=== PATIENT | male | born 1950 | race Caucasian/White ===

== ENCOUNTER 2022-08-12 19:46 | Inpatient (IN) | payer OTHER, SELFPAY ==
[2022-08-12] VITALS (14 sets, daily range): BP systolic 136–169; BP diastolic 63–94; PULSE 88–96; RESP 15–25; TEMP 37.1; O2SAT 93–98; BMI 21.2
--- NOTE | 2022-08-12 20:07 | DI.RAD.S_ITS ---
PROCEDURE: XR CHEST 1V INDICATIONS: Shortness of breath TECHNIQUE: One view of the chest was acquired. COMPARISON: None. FINDINGS: Surgical changes and devices: None. Lungs and pleura: Lungs are clear. There is hyperinflation of the lungs with flattening of the hemidiaphragms compatible with COPD. No pleural effusions or pneumothorax. Mediastinum: Mediastinal contours appear normal. Heart size is normal. Bones and chest wall: There are multiple healed left posterior rib fractures. No suspicious bony lesions. Overlying soft tissues appear unremarkable. IMPRESSION: 1. No acute cardiopulmonary disease. 2. Findings compatible with COPD. Dictated by: Jarrod Jose M.D. on 08/12/2022 at 20:27 Approved by: Jarrod Jose M.D. on 08/12/2022 at 20:28
[2022-08-12 20:27] LABS: Add Manual Diff / Slide Review NO; Basophils Absolute Auto 0 /uL (0-100); Basophils Percent Auto 0.5 % (0-2); Eosinophils Absolute Auto 100 /uL (0-450); Eosinophils Percent Auto 1.6 % (2-4); Hematocrit 40.4 % (41-53); Hemoglobin 14.1 g/dL (13.5-17.5); Lymphocytes Absolute Auto 1000 /uL (1100-4500); Lymphocytes Percent Auto 11.9 % (25-40); Mean Corpuscular HGB Conc 34.9 % (30-36); Mean Corpuscular Hemoglobin 32.1 PG (26-34); Monocytes Absolute Auto 700 /uL (0-900); Monocytes Percent Auto 8.7 % (3-14); Neutrophils Absolute Auto 6200 /uL (1500-7000); Neutrophils Percent Auto 77.3 % (50-75); Platelet Count 166 X10^3/uL (150-400); Red Blood Cell Count 4.39 X10^6/uL (4.5-5.9); Red Cell Distribution Width 14.1 % (11.6-14.8)
[2022-08-12 20:34] LABS: INR 0.9 (0.9-1.3); Prothrombin Time 10.8 SECONDS (10.1-12.7)
[2022-08-12 20:41] LABS: Alanine Aminotransferase 42 IU/L (<50); Albumin 4.1 g/dL (3.5-5.0); Albumin Globulin Ratio 1.1 (1.0-2.8); Alkaline Phosphatase 150 U/L (38-126); Aspartate Aminotransferase 65 IU/L (17-59); Bilirubin Total 1.7 mg/dL (0.2-1.3); Blood Urea Nitrogen 11 mg/dL (9-20); Calcium 8.9 mg/dL (8.4-10.2); Carbon Dioxide 31 mmol/L (22-32); Estimated Glomerular Filt Rate > 60 mL/min (>60); Globulin 3.9 g/dL (1.7-4.1); Glucose 87 mg/dL (80-110); HEMOLYSIS < 15 (0-50); Potassium 4.2 mmol/L (3.4-5.1)
--- NOTE | 2022-08-12 20:43 | ED.SOB ---
HPI - SOB/Dyspnea General Chief Complaint: Shortness of Breath/Dyspnea Stated Complaint: COPD, SOB Time Seen by Provider: 08/12/22 20:26 Source: patient and EMS Mode of arrival: EMS Limitations: no limitations History of Present Illness HPI Narrative: Patient is a 71-year-old male history of COPD presenting with increased difficulty breathing. He says for the last couple of days he has not felt well not eating or drinking very much he gets nauseous when he eats. He is trying to drink some. He is a little bit dizzy when he stands up but no numbness tingling or weakness. He says he really just can not breathe. Been ongoing for the past few days. He was using Spiriva without significant relief. He says that he has been under a lot of stress this week he is trying to get some finances under control. 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 Related Data Allergies Allergy/AdvReac Type Severity Reaction Status Date / Time No Known Drug Allergies Allergy Verified 08/12/22 19:59 Review of Systems Review of Systems ROS Unobtainable: All systems reviewed & are unremarkable except as noted in HPI and below Patient History Social History household members: none Smoking Status: Current every day smoker alcohol intake: current Smoking Status: Current every day smoker alcohol intake frequency: 0-2 drinks per day Substance Use Type: does not use Exam Initial Vital Signs Initial Vital Signs: Vital Signs Temperature 98.8 F 08/12/22 19:50 Pulse Rate 93 H 08/12/22 19:50 Respiratory Rate 24 08/12/22 19:50 Blood Pressure 158/75 H 08/12/22 19:50 Pulse Oximetry 93 08/12/22 19:50 Oxygen Delivery Method 08/12/22 19:50 GENERAL: Alert 71-year-old male, currently speaking on phone HEENT: Head atraumatic,EOMI, pupils reactive, face symmetric, [moist] mucous membranes CARDIOVASCULAR: Regular rate and rhythm without murmurs, rubs or gallops. RESPIRATORY: wheezing bilaterally, speaks in full sentences without any respiratory distress ABDOMEN: Soft, nontender. Normoactive bowel sounds all 4 quadrants. No guarding or rebound. EXTREMITIES: Normal range of motion, no clubbing or edema. Neurovascularly intact NEUROLOGICAL: Alert and oriented x4.Normal gait and speech. Neuropsychiatrist strength equal bilaterally SKIN: Warm, dry, no laceration, no petechiae, no rashes or lesions. Course Orders Ordered: ED Orders 08/12/22 20:07 XR chest 1V Stat COVID19 -Nasal RAPID/Pre-Proc Stat EKG-12 Lead Stat Measure peak expiratory flow ONCE RT Consult Eval and Treat NOW 08/12/22 20:13 Covid-19 + FLU A/B + RSV - PCR Stat 08/12/22 20:19 Complete Blood Count AUTO DIFF Stat Comprehensive Metabolic Panel Stat Lactate (Lactic Acid) Stat NT-proBNP (BNP-Adult 18+) Stat Procalcitonin Stat Prothrombin Time INR Stat TSH [Thyroid Stimulating Hormone] Stat Troponin I Stat 08/12/22 21:04 CT head/brain wo con Stat 08/12/22 22:10 ETOH [Ethanol (ETOH)] Stat MAG [Magnesium] Stat Trop I [Troponin I] Stat 08/12/22 22:46 Osmolality, Serum Stat Sodium Urine Random Stat UA Complete [Urinalysis and Microscopic] Stat 08/12/22 23:40 BMP [Basic Metabolic Panel] Q4H Acetaminophen (Acetaminophen 325 Mg Tablet) 650 mg PO Q6H PRN PRN Reason: Fever/Mild Pain (1-3) Al Hydrox/Mg Hydrox/Simethicone (Mag Hydrox/Alum/Simeth 30 Ml Udc) 30 ml PO Q6HR PRN PRN Reason: Dyspepsia Albuterol/Ipratropium (Albuterol/Ipratropium 3 Ml Ampul) 3 ml INH RTQ4HR PRN PRN Reason: Shortness Of Breath Or Wheezing Aspirin (Aspirin Ec 81 Mg Tablet) 81 mg PO DAILY AMY Calcium Carbonate (Calcium Carbonate 500 Mg Tab) 1,000 mg PO Q4HR PRN PRN Reason: Dyspepsia Chlordiazepoxide HCl (Chlordiazepoxide 25 Mg Capsule) 25 mg PO Q6HR [facility] Enoxaparin Sodium (Enoxaparin 40 Mg/0.4 Ml Syringe) 40 mg SUBCUT DAILY [facility] Sodium Chloride (Normal Saline 0.9%) 1,000 mls @ 100 mls/hr IV CONT AMY Last Infusion: 08/13/22 00:01 Dose: 100 mls/hr Documented By: Admin: 08/12/22 21:26 Dose: 100 mls/hr Documented By: HA Lidocaine (Remove Lidocaine Patch) 1 each TOP BEDTIME ONE Stop: 08/13/22 21:01 Lidocaine (Lidocaine Patch 1 Each Adh..Patch) 1 each TOP DAILY AMY Lorazepam (Lorazepam 2 Mg/Ml Inj) 0 mg IV CIWAPRN PRN; Protocol PRN Reason: Alcohol Withdrawal Lorazepam (Lorazepam 1 Mg Tablet) 0 mg PO CIWAPRN PRN; Protocol PRN Reason: Alcohol Withdrawal Morphine Sulfate (Morphine 2 Mg/Ml Inj) 2 mg IV Q5MIN PRN PRN Reason: Chest Pain Naloxone HCl (Naloxone 0.4 Mg/Ml Vial) 0.2 mg IV Q2MIN PRN PRN Reason: Opiate Reversal Nicotine (Nicotine 14 Patch) 14 mg TOP DAILY AMY Nitroglycerin (Nitroglycerin 0.4 Mg Sl Tab) 0.4 mg SL [id number] PRN PRN Reason: Chest Pain Ondansetron HCl (Ondansetron 4 Mg/2 Ml Inj) 4 mg IV Q8HR PRN PRN Reason: Nausea And Vomiting Oxycodone HCl (Oxycodone Ir 5 Mg Tablet) 5 mg PO Q6HR PRN PRN Reason: Pain, Moderate (4-6) Last Admin: 08/13/22 01:18 Dose: 5 mg Documented By: SONU Prednisone (Prednisone 20 Mg Tablet) 40 mg PO DAILY AMY Discontinued Medications Albuterol/Ipratropium (Albuterol/Ipratropium 3 Ml Ampul) 3 ml INH NOW ONE Stop: 08/12/22 20:45 Last Admin: 08/12/22 20:57 Dose: 3 ml Documented By: HA Hydromorphone HCl (Hydromorphone 0.5 Mg Inj) 0.5 mg IV NOW ONE Stop: 08/12/22 21:11 Last Admin: 08/12/22 21:26 Dose: 0.5 mg Documented By: HA Magnesium Sulfate (Magnesium Sulfate) 2 gm in 50 mls @ 25 mls/hr IV NOW ONE Stop: 08/13/22 01:16 Lactated Ringer's (Lactated Ringers) 500 mls @ 500 mls/hr IV BOLUS ONE Stop: 08/13/22 00:16 Last Admin: 08/13/22 01:18 Dose: Not Given Documented By: SONU Lactated Ringer's (Lactated Ringers) 500 mls @ 1,000 mls/hr IV BOLUS ONE Stop: 08/13/22 01:14 Lactated Ringer's (Lactated Ringers) 1,000 mls @ 1,000 mls/hr IV BOLUS ONE Stop: 08/13/22 01:44 Last Admin: 08/13/22 01:18 Dose: 1,000 mls/hr Documented By: SONU Vital Signs Vital signs: Vital Signs - 8 hr 08/12/22 19:50 08/12/22 20:00 08/12/22 20:05 Temperature 98.8 F Pulse Rate 93 H Respiratory Rate 24 Blood Pressure 158/75 H 153/71 H 141/67 H Pulse Oximetry 93 Oxygen Delivery Method Room Air Oxygen Flow Rate 08/12/22 20:05 08/12/22 20:29 08/12/22 20:29 Temperature Pulse Rate 92 H 93 H Respiratory Rate 25 H Blood Pressure 158/79 H Pulse Oximetry 93 97 Oxygen Delivery Method Nasal Cannula Nasal Cannula Oxygen Flow Rate 2 2 08/12/22 20:30 08/12/22 20:30 08/12/22 21:00 Temperature Pulse Rate 92 H Respiratory Rate 25 H Blood Pressure 144/81 H 158/75 H Pulse Oximetry 98 Oxygen Delivery Method Nasal Cannula Oxygen Flow Rate 2 08/12/22 21:00 08/12/22 21:30 08/12/22 21:30 Temperature Pulse Rate 93 H 96 H Respiratory Rate 20 21 Blood Pressure 151/69 H Pulse Oximetry 94 98 Oxygen Delivery Method Nasal Cannula Oxygen Flow Rate 2 08/12/22 22:00 08/12/22 22:00 Temperature Pulse Rate 88 Respiratory Rate 15 Blood Pressure 136/63 Pulse Oximetry 96 Oxygen Delivery Method Oxygen Flow Rate MDM - SOB/Dyspnea Lab Data 08/12/22 20:19 08/12/22 23:40 Labs: Lab Results 08/12/22 08/12/22 08/12/22 Range/Units 20:13 20:19 20:19 WBC 8.0 (4.5-11.0) X10^3/uL RBC 4.39 L (4.5-5.9) X10^6/uL Hgb 14.1 (13.5-17.5) g/dL Hct 40.4 L (41-53) % MCV 92.0 (80-100) fL MCH 32.1 (26-34) PG MCHC 34.9 (30-36) % RDW 14.1 (11.6-14.8) % Plt Count 166 (150-400) X10^3/uL Neut % (Auto) 77.3 H (50-75) % Lymph % (Auto) 11.9 L (25-40) % [place] % (Auto) 8.7 (3-14) % Eos % (Auto) 1.6 L (2-4) % Baso % (Auto) 0.5 (0-2) % Neut # (Auto) 6200 (9104-2822) /uL Lymph # (Auto) 1000 L (0093-0335) /uL [place] # (Auto) 700 (0-900) /uL Eos # (Auto) 100 (0-450) /uL Baso # (Auto) 0 (0-100) /uL PT 10.8 (10.1-12.7) SECONDS INR 0.9 (0.9-1.3) Sodium (137-145) mmol/L Potassium (3.4-5.1) mmol/L Chloride (98-107) mmol/L Carbon Dioxide (22-32) mmol/L BUN (9-20) mg/dL Creatinine (0.66-1.25) mg/dL Estimated GFR (>60) mL/min BUN/Creatinine Ratio (6-22) Glucose (80-110) mg/dL Lactate (0.7-2.1) mmol/L Calcium (8.4-10.2) mg/dL Magnesium (1.6-2.3) mg/dL Total Bilirubin (0.2-1.3) mg/dL AST (17-59) IU/L ALT (<50) IU/L Alkaline Phosphatase (38-126) U/L Troponin I (0.01-0.034) ng/mL NT-Pro-B Natriuret Pep (<125) pg/mL Total Protein (6.3-8.2) g/dL Albumin (3.5-5.0) g/dL Globulin (1.7-4.1) g/dL Albumin/Globulin Ratio (1.0-2.8) Procalcitonin (<0.5) ng/mL TSH (0.47-4.68) uIU/mL Ethyl Alcohol ( - 10) mg/dL SARS-CoV-2 (PCR) Negative (Negative) Influenza A (RT-PCR) Flu a negative (NEGATIVE) Influenza B (RT-PCR) Flu b negative (NEGATIVE) RSV (PCR) Negative (Negative) 08/12/22 08/12/22 08/12/22 Range/Units 20:19 20:19 20:19 WBC (4.5-11.0) X10^3/uL RBC (4.5-5.9) X10^6/uL Hgb (13.5-17.5) g/dL Hct (41-53) % MCV (80-100) fL MCH (26-34) PG MCHC (30-36) % RDW (11.6-14.8) % Plt Count (150-400) X10^3/uL Neut % (Auto) (50-75) % Lymph % (Auto) (25-40) % [place] % (Auto) (3-14) % Eos % (Auto) (2-4) % Baso % (Auto) (0-2) % Neut # (Auto) (8907-2977) /uL Lymph # (Auto) (7903-1995) /uL [place] # (Auto) (0-900) /uL Eos # (Auto) (0-450) /uL Baso # (Auto) (0-100) /uL PT (10.1-12.7) SECONDS INR (0.9-1.3) Sodium 107 L* (137-145) mmol/L Potassium 4.2 (3.4-5.1) mmol/L Chloride 67 L* (98-107) mmol/L Carbon Dioxide 31 (22-32) mmol/L BUN 11 (9-20) mg/dL Creatinine 0.58 L (0.66-1.25) mg/dL Estimated GFR > 60 (>60) mL/min BUN/Creatinine Ratio 19.0 (6-22) Glucose 87 (80-110) mg/dL Lactate 1.7 (0.7-2.1) mmol/L Calcium 8.9 (8.4-10.2) mg/dL Magnesium (1.6-2.3) mg/dL Total Bilirubin 1.7 H (0.2-1.3) mg/dL AST 65 H (17-59) IU/L ALT 42 (<50) IU/L Alkaline Phosphatase 150 H (38-126) U/L Troponin I 0.043 H (0.01-0.034) ng/mL NT-Pro-B Natriuret Pep 176 H (<125) pg/mL Total Protein 8.0 (6.3-8.2) g/dL Albumin 4.1 (3.5-5.0) g/dL Globulin 3.9 (1.7-4.1) g/dL Albumin/Globulin Ratio 1.1 (1.0-2.8) Procalcitonin 0.07 (<0.5) ng/mL TSH (0.47-4.68) uIU/mL Ethyl Alcohol ( - 10) mg/dL SARS-CoV-2 (PCR) (Negative) Influenza A (RT-PCR) (NEGATIVE) Influenza B (RT-PCR) (NEGATIVE) RSV (PCR) (Negative) 08/12/22 08/12/22 08/12/22 Range/Units 20:19 22:10 22:10 WBC (4.5-11.0) X10^3/uL RBC (4.5-5.9) X10^6/uL Hgb (13.5-17.5) g/dL Hct (41-53) % MCV (80-100) fL MCH (26-34) PG MCHC (30-36) % RDW (11.6-14.8) % Plt Count (150-400) X10^3/uL Neut % (Auto) (50-75) % Lymph % (Auto) (25-40) % [place] % (Auto) (3-14) % Eos % (Auto) (2-4) % Baso % (Auto) (0-2) % Neut # (Auto) (6632-2948) /uL Lymph # (Auto) (1262-0850) /uL [place] # (Auto) (0-900) /uL Eos # (Auto) (0-450) /uL Baso # (Auto) (0-100) /uL PT (10.1-12.7) SECONDS INR (0.9-1.3) Sodium (137-145) mmol/L Potassium (3.4-5.1) mmol/L Chloride (98-107) mmol/L Carbon Dioxide (22-32) mmol/L BUN (9-20) mg/dL Creatinine (0.66-1.25) mg/dL Estimated GFR (>60) mL/min BUN/Creatinine Ratio (6-22) Glucose (80-110) mg/dL Lactate (0.7-2.1) mmol/L Calcium (8.4-10.2) mg/dL Magnesium 1.3 L (1.6-2.3) mg/dL Total Bilirubin (0.2-1.3) mg/dL AST (17-59) IU/L ALT (<50) IU/L Alkaline Phosphatase (38-126) U/L Troponin I 0.048 H (0.01-0.034) ng/mL NT-Pro-B Natriuret Pep (<125) pg/mL Total Protein (6.3-8.2) g/dL Albumin (3.5-5.0) g/dL Globulin (1.7-4.1) g/dL Albumin/Globulin Ratio (1.0-2.8) Procalcitonin (<0.5) ng/mL TSH 1.05 (0.47-4.68) uIU/mL Ethyl Alcohol < 10 ( - 10) mg/dL SARS-CoV-2 (PCR) (Negative) Influenza A (RT-PCR) (NEGATIVE) Influenza B (RT-PCR) (NEGATIVE) RSV (PCR) (Negative) Imaging Data Chest x-ray: Radiologist's Impression: Signed Patient: Abdirashid Yan MR#: [id number] : 1950 Acct:[id number] Age/Sex: 71 / M Date of Service: 08/12/22 Loc: ED Accession Number: [id number] ?? Procedure: XR chest 1V Ordering Provider: Janel Mcmahon D.O. PROCEDURE:? XR CHEST 1V ? INDICATIONS:? Shortness of breath ? TECHNIQUE:? One view of the chest was acquired.? ? COMPARISON:? None. ? FINDINGS:? ? Surgical changes and devices:? None.? ? Lungs and pleura:? Lungs are clear. There is hyperinflation of the lungs with flattening of the hemidiaphragms compatible with COPD. ? No pleural effusions or pneumothorax.? ? Mediastinum:? Mediastinal contours appear normal.? Heart size is normal.? ? Bones and chest wall:? There are multiple healed left posterior rib fractures.? No suspicious bony lesions.? Overlying soft tissues appear unremarkable.? ? IMPRESSION:? ? 1. No acute cardiopulmonary disease. ? 2. Findings compatible with COPD.? ? Dictated by: Jarrod Jose M.D. on 08/12/2022 at 20:27 ? ? Approved by: Jarrod Jose M.D. on 08/12/2022 at 20:28 ? CT scan - head: Radiologist's Impression: [place] [id number] [address] Scan Report Signed Patient: Abdirashid Yan MR#: [id number] : 1950 Acct:[id number] Age/Sex: 71 / M Date of Service: 08/12/22 Loc: ED Accession Number: [id number] ?? Procedure: CT head/brain wo con Ordering Provider: Janel Mcmahon D.O. PROCEDURE:? CT HEAD/BRAIN WO CON ? INDICATIONS:? hyponatremia and falling ? TECHNIQUE:? Noncontrast 4.5 mm thick angled axial sections acquired from the foramen magnum to the vertex, with coronal and sagittal reformats.? For radiation dose reduction, the following was used:? automated exposure control, adjustment of mA and/or kV according to patient size.? ? COMPARISON:? None. ? FINDINGS:? Image quality:? Excellent.? ? CSF spaces:? Basal cisterns are patent.? No extra-axial fluid collections.? Ventricles are normal in size and shape.? ? Brain:? No intracranial hemorrhage, mass, or mass effect.? Abbott-white matter interface appears preserved.? ? Skull and face:? Calvarium and visualized facial bones are intact, without suspicious lesions.? ? Sinuses:? Visualized sinuses and mastoids are clear.? ? IMPRESSION:? ? 1. No acute intracranial abnormality.? ? ? Dictated by: Jarrod Jose M.D. on 08/12/2022 at 21:33 ? ? Approved by: Jarrod Jose M.D. on 08/12/2022 at 21:34 ? ECG Data Interpretation: Sinus arrhythmia rate 89 OR interval 230 QTC 438 QT [address] changes T-wave inversion noted in aVL no priors to compare MDM Narrative Medical decision making narrative: Patient 71-year-old male with history of COPD presenting with respiratory problems increasing shortness of breath over the last few days. He is also had some dizziness and decrease in appetite as well. He is found to have a critically low sodium of 107. Patient reports that he had some blood work done by his PCP and he thought his sodium was low but not at low possibly in the 120s. It just cut appear that he is on any medication to cause hyponatremia. I suspect hyponatremia is secondary to decrease in intake. It does not appear that he is drinking excessive water I think he clinically appears dehydrated. He is having some difficulty breathing he is given an albuterol treatment which seems to help. He has no leukocytosis or evidence of pneumonia. 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 This point I think his sodium is more critical than his breathing he seems be talking full sentences without any problem he also is not hypoxic. He is not given antibiotics for this reason. Patient overall is not that symptomatic from his critically low sodium of 107. Not having any seizures just seems little dizzy and lightheaded head CT is negative neurologically he is. Dr Acharya, microbiology instructor updated on patient's symptoms test results agrees with normal saline at about 100 cc an hour. Will not do hypertonic at this time. Happy to accept in the ICU and help manage. [facility] CC: Shortness of breath dizziness Complicating co-morbidities: COPD Corroborating data: Data collected from: Medical records reviewed: None Differential considered: COPD exacerbation acute coronary syndrome, congestive heart failure, pulmonary embolism, pneumonia, pneumothorax Exam documented above, pertinent findings include: Lab Test results independently reviewed as above. Pertinent findings: As above sodium 107, urine sodium 80 Independently reviewed EKG as above Imaging studies independently reviewed: Consultations: ICU microbiology instructor Treatments: Normal saline 100 cc an hour, albuterol Re-evaluations: Feeling better after albuterol more air movement and wheezing Discussion: As above Diagnosis: Acute hyponatremia and COPD exacerbation Disposition: see below, along with detailed discharge instructions that have been reviewed with patient as well as indications for ED re-evaluation and additional outpatient follow up Critical Care Time Critical Care Time Critical Care Time: Yes Total Critical Care Time: 30 Attestation: The high probability of a clinically significant, sudden or life threatening deterioration of the neurovascular system(s) required my full and direct attention, intervention and personal management. The aggregate critical care time was 30 minutes. This time is in addition to time spent performing reported procedures but includes the following: [x] Data Review and interpretation [x] Patient assessment and monitoring of vital signs [x] Documentation [x] Medication orders and management Discharge Plan Departure Patient Disposition: Admitted As Inpatient Clinical Impression: Acute hyponatremia, Acute exacerbation of chronic obstructive airways disease Admit Date/Time: 08/12/22 22:28 Admit Provider: Jolie Schmidt
[2022-08-12 20:45] LABS: Lactate (Lactic Acid) 1.7 mmol/L (0.7-2.1)
[2022-08-12 20:53] LABS: NT-proBNP (BNP-Adult 18+) 176 pg/mL (<125); Troponin I 0.043 ng/mL (0.01-0.034)
[2022-08-12] MEDS: ALBUTEROL/IPRATROPIUM 3 ML AMPUL INH (20:57)
[2022-08-12 20:58] LABS: Chloride 67 mmol/L (98-107); Sodium 107 mmol/L (137-145)
--- NOTE | 2022-08-12 21:04 | DI.CT.S_ITS ---
PROCEDURE: CT HEAD/BRAIN WO CON INDICATIONS: hyponatremia and falling TECHNIQUE: Noncontrast 4.5 mm thick angled axial sections acquired from the foramen magnum to the vertex, with coronal and sagittal reformats. For radiation dose reduction, the following was used: automated exposure control, adjustment of mA and/or kV according to patient size. COMPARISON: None. FINDINGS: Image quality: Excellent. CSF spaces: Basal cisterns are patent. No extra-axial fluid collections. Ventricles are normal in size and shape. Brain: No intracranial hemorrhage, mass, or mass effect. Abbott-white matter interface appears preserved. Skull and face: Calvarium and visualized facial bones are intact, without suspicious lesions. Sinuses: Visualized sinuses and mastoids are clear. IMPRESSION: 1. No acute intracranial abnormality. Dictated by: Jarrod Jose M.D. on 08/12/2022 at 21:33 Approved by: Jarrod Jose M.D. on 08/12/2022 at 21:34
[2022-08-12] MEDS: HYDROMORPHONE 0.5 MG INJ IV (21:26)
[2022-08-12] MEDS: SODIUM CHLORIDE 0.9% 1,000 ML 100 ML IV (21:26)
[2022-08-12 21:28] LABS: Influenza A - CEPHEID Flu A NEGATIVE (NEGATIVE); Influenza B - CEPHEID Flu B NEGATIVE (NEGATIVE); Respiratory Syncytial Virus Negative (Negative)
[2022-08-12 21:29] LABS: Procalcitonin 0.07 ng/mL (<0.5)
[2022-08-12 21:30] LABS: COVID-19 CEPHEID 4-PLEX PCR Negative (Negative)
[2022-08-12 22:33] LABS: Magnesium 1.3 mg/dL (1.6-2.3)
[2022-08-12 22:44] LABS: Troponin I 0.048 ng/mL (0.01-0.034)
[2022-08-12 22:53] LABS: Ethanol (ETOH) < 10 mg/dL
[2022-08-12 23:03] LABS: Thyroid Stimulating Hormone 1.05 uIU/mL (0.47-4.68)
[2022-08-12 23:10] LABS: Appearance Urine UA CLEAR; Bilirubin Urine UA NEGATIVE (NEGATIVE); Color Urine UA YELLOW; Glucose Urine UA NEGATIVE (Negative); Ketones Urine UA TRACE (NEGATIVE); Leukocyte Esterase Urine UA NEGATIVE (NEGATIVE); Nitrite Urine UA NEGATIVE (Negative); Occult Blood Urine UA TRACE-INTACT (Negative); Protein Urine UA NEGATIVE (Negative); Specific Gravity Urine UA 1.015 (1.000-1.035); Urobilinogen Urine UA 0.2 E.U./dL (0.2)
[2022-08-12 23:17] LABS: Bacteria Urine None Seen; Culture Indicated Urine Cult Not Indicated; RBC Urine 0-1/HPF (0-5/HPF); Sodium Urine Random 81 mmol/L (30-90); Transitional Epi Cells Urine 0-1/HPF (0-5/HPF); WBC Urine None Seen (0-5/HPF)
--- NOTE | 2022-08-12 23:17 | DI.ECHO.S_ITS ---
[facility]---------+ [facility] +---------+ : : [address] : : : : [id number] : : : : Phone: [phone] Echocardiogram Report + + :Name: violette rodas Study Date: 08/13/2022 Height: 68 in : :[facility] ReadingLocation: Weight: 140 lb : : Gender: Other BSA: 1.8 m2 : :: 1950 Age: 71 yrs BP: 115/56 mmHg: :Reason For Study: COPD, Shortness of Breath : :Ordering Physician: LASHELL, : :ERIS Performed By: Nedra Arroyo : :Referring: ERIS LOBO : + + Interpretation Summary Normal sinus rhythm. Normal LV size and mildly increased wall thickness. Normal wall motion and left ventricular systolic function. Ejection fraction is 60-65%. Stage I diastolic dysfunction. Aortic valve leaflets are moderately thickened and calcified. Peak aortic valve velocity is 3 m/s with mean gradient of 18 mmHg consistent with moderate aortic stenosis. Calculated valve area is 1.1 vessel liner?. Estimated PA systolic pressure is 33 mmHg assuming right atrial pressure 15 mmHg. No prior echo available for comparison. Procedure: A two-dimensional transthoracic echocardiogram with color flow and Doppler was performed. The patient was in sinus rhythm with heart rates between 83-96 bpm during the exam. Left Ventricle: The left ventricle is normal in size. There is mild concentric left ventricular hypertrophy. The ejection fraction is estimated to be 60-65%. Diastolic parameters suggest a relaxation abnormality of the left ventricle, consistent with probable normal filling pressures. Right Ventricle: The right ventricle is mildly dilated. The right ventricular systolic function is normal. Atria: The left atrial size is normal. The right atrium is normal in size. There is no Doppler evidence for an interatrial shunt. Mitral Valve: The mitral valve is normal in structure and function. The mitral valve leaflets are mildly calcified. There is trace mitral regurgitation. Aortic Valve: The aortic valve is trileaflet. The aortic valve is heavily calcified. There is moderately reduced leaflet mobility. There is moderate aortic stenosis. No aortic regurgitation is present. Tricuspid Valve: The tricuspid valve is normal in structure and function. There is mild tricuspid regurgitation. Pulmonic Valve: The pulmonic valve leaflets are thin and pliable; valve motion is normal. There is a trace or physiologic amount of pulmonic regurgitation. Great Vessels: The dimensions of the ascending aorta are normal. The IVC is dilated (diameter is greater than 2.1 cm) and it collapses less than 50% with a sniff. This suggests a high right atrial pressure of 15 mm Hg. Pericardium/ Pleura There is no pericardial effusion. There is no pleural effusion. MMode/2D Measurements & Calculations LVIDd: 3.9 cm LVOT diam: 2.0 cm LVIDs: 2.7 cm Ao root diam: 3.0 cm FS: 30.8 % asc Aorta Diam: 3.1 cm EPSS: 0.25 cm IVSd: 1.2 cm LVPWd: 1.1 cm LV murillo. diameter/BSA (cm/m^2): 2.2 LV sys. diameter/BSA (cm/m^2): 1.5 LA A2 area: 16.2 cm2 RA long axis: 3.5 cm RA area: 9.5 cm2 RA vol: 21.8 ml RA : 12.4 ml/m2 IVC diam: 2.2 cm RVD1 (basal): 3.8 cm TAPSE: 2.2 cm Doppler Measurements & Calculations Ao V2 max: 292.1 cm/sec LVOT Max Julian: 96.5 cm/sec Ao V2 mean: 193.8 cm/sec LV V1 max P.7 mmHg Ao max P.1 mmHg LV V1 VTI: 20.6 cm Ao mean P.0 mmHg GILDA(I,D): 1.2 cm2 Ao V2 VTI: 55.3 cm GILDA(V,D): 1.0 cm2 sev ratio: 0.37 GILDA indexed to BSA (cm^2/m^2): 0.66 MV E max julian: 47.5 cm/sec TR max julian: 296.4 cm/sec MV A max julian: 74.3 cm/sec TR max P.3 mmHg MV E/A: 0.64 PA V2 max: 93.9 cm/sec Med Peak E' Julian: 6.7 cm/sec PA V2 mean: 72.0 cm/sec E/E' med: 7.1 PA mean P.2 mmHg Lat Peak E' Julian: 13.7 cm/sec E/E' lat: 3.5 E/e' average: 5.3 MV dec time: 0.27 sec MVA(VTI): 3.2 cm2 MV V2 mean: 56.6 cm/sec SV(LVOT): 64.4 ml MV mean P.4 mmHg MV V2 VTI: 19.8 cm Electronically signed by: Lakeisha Cardozo M.D. on Reading Physician:08/13/2022 03:33 PM
--- NOTE | 2022-08-12 23:34 | P.HP_ITS ---
History of Present Illness History of Present Illness Date Patient Seen: 08/12/22 Time Patient Seen: 23:34 Chief complaint: COPD, SOB Narrative: Abdirashid Yan 71-year-old male with a history of emphysema, COPD hypertension, gout, chronic LBP- permanently disabled, heavy alcohol use and abuse, and tobacco abuse who presented to the ED complaining of worsening shortness of breath, fatigue and complaining brain just does not work for the past 3 days. Patient notes that his respiratory function has been gradually worsening over several years but became intolerable within the last 3 days. Patient is not normally on home O2 has never completed a sleep study and notes that he has not been diagnosed with sleep apnea although he reports difficulty sleeping due to difficulty breathing. Patient reports that he feels he is more confused and disorientated than previous, patient's cognitive thought process during admit intake is scattered often repeats himself repeats questions unknown if this is baseline for the patient. Patient complains difficulty urinating, decreased frequency, mild dysuria. He states that earlier in the evening went to stand up from his chair felt slightly dizzy went to sit back down and missed the chair and fell and hit the floor landing on his coccyx. This was not noted in the ER note so unsure if this is a correct recall of HPI. He denied hitting his head or loss of consciousness or frequent falls. Also denies chest pain, headache, changes in vision, speech impairment, weakness, numbness, tingling, difficulty with ambulation, recent falls, head injury, LOC, fever, body aches, chills, recent exposure to illness, abdominal pain, nausea, vomiting, urinary incontinence/retention, urgency, hematuria, bowel changes, constipation, incontinence, melena, rashes, recent, illness. Patient notes that he has been heavily drinking for several years 2-3 6 packs of beers per night with 4-6 glasses of whiskey until he would pass out after work. He reports recently cutting back to 3-4 glasses of whiskey per night. Patient also has been a 2 pack-a-day smoker for several decades, reports cutting back to 1 pack a day recently, occasionally has THC edibles, denies any other substance use. Admit 98.8, BP 158/75, 93, 20, 94% on 2 L-O2 saturations above 90% on room air. CBC unremarkable, sodium 107, chloride 67, potassium normal 4.2, creatinine normal 0.58, bili 1.7, AST 65, alk-phos 150, sofa score: 3, no gap, Mag 1.3, BN P 176, procalcitonin negative, ETOH negative, COVID/influenza a/B/RSV all negative. Initial troponin 0.043, repeat 0.048, head CT negative, chest x-ray negative with the exception of signs and symptoms of COPD. Patient admitted with sepsis without septic shock COPD exacerbation severe hyponatremia, hypomagnesemia, myocardial injury/NSTEMI to the ICU. Patient History Medical History (Updated 08/13/22 @ 05:41 by KATHY Salguero) Alcohol abuse Continuous tobacco abuse Emphysema lung Essential hypertension Surgical History (Updated 08/13/22 @ 05:41 by KATHY Salguero) History of hernia repair Family & Social History Family History Father Cancer Mother Emphysema of lung Safety & Behavioral: Feels Safe in Current Yes Environment Tobacco & Substance use: Smoking Status Current every day smoker alcohol intake frequency 0-2 drinks per day Substance Use Type does not use Meds Home Medications and Allergies Home Medications Medication Instructions Recorded Confirmed Type allopurinol 300 mg tablet 300 mg PO DAILY 08/13/22 08/13/22 History fluticasone 500 mcg-salmeterol 50 1 inh inhalation BID 08/13/22 08/13/22 History mcg/dose blistr powdr for inhalation (Advair Diskus) indapamide 1.25 mg tablet 1.25 mg PO QAM 08/13/22 08/13/22 History Allergies Allergy/AdvReac Type Severity Reaction Status Date / Time No Known Drug Allergies Allergy Verified 08/12/22 19:59 Review of Systems Review of Systems Narrative: All 12 point systems reviewed with the patient and are negative except otherwise documented. Exam Vital Signs (past 8 hours): - 08/12/22 19:50 08/12/22 20:00 08/12/22 20:05 Temperature 98.8 F Pulse Rate 93 H Respiratory Rate 24 Blood Pressure 158/75 H 153/71 H 141/67 H Pulse Oximetry 93 Oxygen Delivery Method Room Air Oxygen Flow Rate 08/12/22 20:05 08/12/22 20:29 08/12/22 20:29 Temperature Pulse Rate 92 H 93 H Respiratory Rate 25 H Blood Pressure 158/79 H Pulse Oximetry 93 97 Oxygen Delivery Method Nasal Cannula Nasal Cannula Oxygen Flow Rate 2 2 08/12/22 20:30 08/12/22 20:30 08/12/22 21:00 Temperature Pulse Rate 92 H Respiratory Rate 25 H Blood Pressure 144/81 H 158/75 H Pulse Oximetry 98 Oxygen Delivery Method Nasal Cannula Oxygen Flow Rate 2 08/12/22 21:00 08/12/22 21:30 08/12/22 21:30 Temperature Pulse Rate 93 H 96 H Respiratory Rate 20 21 Blood Pressure 151/69 H Pulse Oximetry 94 98 Oxygen Delivery Method Nasal Cannula Oxygen Flow Rate 2 08/12/22 22:00 08/12/22 22:00 08/12/22 22:30 Temperature Pulse Rate 88 89 Respiratory Rate 15 16 Blood Pressure 136/63 Pulse Oximetry 96 97 Oxygen Delivery Method Oxygen Flow Rate 08/12/22 22:31 08/12/22 22:31 08/12/22 23:00 Temperature Pulse Rate 89 95 H Respiratory Rate 16 21 Blood Pressure 145/67 H Pulse Oximetry 97 96 Oxygen Delivery Method Oxygen Flow Rate 08/12/22 23:01 08/12/22 23:01 Temperature Pulse Rate 94 H Respiratory Rate 20 Blood Pressure 147/94 H Pulse Oximetry 96 Oxygen Delivery Method Oxygen Flow Rate Oxygen Delivery Method Nasal Cannula Oxygen Flow Rate 2 Narrative Exam Narrative: General: Patient is a thin frail looking elderly male who appears older than stated age with moderate work of breathing, very anxious, in no distress at this time. HEENT: Normocephalic, atraumatic, extraocular muscles intact, oral pharynx is clear and mucous membranes are very dry. Neck trachea is midline, Negative for JVD Chest: Noted barrel chest, patient was speaking, which he continually tries to ramble having to breathe every 3-4 words demonstrates nasal flaring, increasing retractions, tachypneic and labored breathing-patient notably be is becoming more and more anxious the more he speaks. Lungs: Auscultation of all lung khan are decreased poor air exchange, equal throughout, profuse expiratory wheezing consistent throughout, patient appears quite dry hypovolemic Cardio: regular rate and rhythm without murmur, rubs, or gallops, no carotid bruit, no cardiac pulsations present. Abdomen: Soft -but grimace with palpation, negative for organomegaly, or masses. Bowel sounds are present in all 4 quadrants without guarding, no CVA tenderness. Musculoskeletal: Muscle strength and tone appear wasted equal but less than expected for age, no deformity, crepitus, effusions, cyanosis, clubbing present. Trace bilateral nonpitting bilateral lower extremity edema Full range of motion intact radial and pedal pulses are normal. Skin: Warm very dry and intact without rashes, ulcerations or petechiae. Neuro: Alert and orientated x3-but appears confused easily distracted difficulty following conversation. Moves all extremities, sensation to touch intact, no gross deficits noted of cranial nerves. Psych: Patient appears chronically ill, almost wasting type appearance, severely anxious affect, mental status attitude thought context and judgment are scattered, disorganized, inappropriate for age. Objective Labs 08/12/22 20:19 08/12/22 20:19 Labs: Laboratory Results - last 24 hr 08/12/22 08/12/22 08/12/22 20:13 20:19 20:19 WBC 8.0 RBC 4.39 L Hgb 14.1 Hct 40.4 L MCV 92.0 MCH 32.1 MCHC 34.9 RDW 14.1 Plt Count 166 Neut % (Auto) 77.3 H Lymph % (Auto) 11.9 L [place] % (Auto) 8.7 Eos % (Auto) 1.6 L Baso % (Auto) 0.5 Neut # (Auto) 6200 Lymph # (Auto) 1000 L [place] # (Auto) 700 Eos # (Auto) 100 Baso # (Auto) 0 PT 10.8 INR 0.9 Sodium Potassium Chloride Carbon Dioxide BUN Creatinine Estimated GFR BUN/Creatinine Ratio Glucose Lactate Calcium Magnesium Total Bilirubin AST ALT Alkaline Phosphatase Troponin I NT-Pro-B Natriuret Pep Total Protein Albumin Globulin Albumin/Globulin Ratio Procalcitonin TSH Urine Color Urine Appearance Urine pH Ur Specific [place] Urine Protein Urine Glucose (UA) Urine Ketones Urine Occult Blood Urine Nitrate Urine Bilirubin Urine Urobilinogen Ur Leukocyte Esterase Urine RBC Urine WBC Ur Transition Epith Cell Urine Bacteria Ur Culture Indicated? Ur Random Sodium Ethyl Alcohol SARS-CoV-2 (PCR) Negative Influenza A (RT-PCR) Flu a negative Influenza B (RT-PCR) Flu b negative RSV (PCR) Negative 08/12/22 08/12/22 08/12/22 20:19 20:19 20:19 WBC RBC Hgb Hct MCV MCH MCHC RDW Plt Count Neut % (Auto) Lymph % (Auto) [place] % (Auto) Eos % (Auto) Baso % (Auto) Neut # (Auto) Lymph # (Auto) [place] # (Auto) Eos # (Auto) Baso # (Auto) PT INR Sodium 107 L* Potassium 4.2 Chloride 67 L* Carbon Dioxide 31 BUN 11 Creatinine 0.58 L Estimated GFR > 60 BUN/Creatinine Ratio 19.0 Glucose 87 Lactate 1.7 Calcium 8.9 Magnesium Total Bilirubin 1.7 H AST 65 H ALT 42 Alkaline Phosphatase 150 H Troponin I 0.043 H NT-Pro-B Natriuret Pep 176 H Total Protein 8.0 Albumin 4.1 Globulin 3.9 Albumin/Globulin Ratio 1.1 Procalcitonin 0.07 TSH Urine Color Urine Appearance Urine pH Ur Specific [place] Urine Protein Urine Glucose (UA) Urine Ketones Urine Occult Blood Urine Nitrate Urine Bilirubin Urine Urobilinogen Ur Leukocyte Esterase Urine RBC Urine WBC Ur Transition Epith Cell Urine Bacteria Ur Culture Indicated? Ur Random Sodium Ethyl Alcohol SARS-CoV-2 (PCR) Influenza A (RT-PCR) Influenza B (RT-PCR) RSV (PCR) 08/12/22 08/12/22 08/12/22 20:19 22:10 22:10 WBC RBC Hgb Hct MCV MCH MCHC RDW Plt Count Neut % (Auto) Lymph % (Auto) [place] % (Auto) Eos % (Auto) Baso % (Auto) Neut # (Auto) Lymph # (Auto) [place] # (Auto) Eos # (Auto) Baso # (Auto) PT INR Sodium Potassium Chloride Carbon Dioxide BUN Creatinine Estimated GFR BUN/Creatinine Ratio Glucose Lactate Calcium Magnesium 1.3 L Total Bilirubin AST ALT Alkaline Phosphatase Troponin I 0.048 H NT-Pro-B Natriuret Pep Total Protein Albumin Globulin Albumin/Globulin Ratio Procalcitonin TSH 1.05 Urine Color Urine Appearance Urine pH Ur Specific [place] Urine Protein Urine Glucose (UA) Urine Ketones Urine Occult Blood Urine Nitrate Urine Bilirubin Urine Urobilinogen Ur Leukocyte Esterase Urine RBC Urine WBC Ur Transition Epith Cell Urine Bacteria Ur Culture Indicated? Ur Random Sodium Ethyl Alcohol < 10 SARS-CoV-2 (PCR) Influenza A (RT-PCR) Influenza B (RT-PCR) RSV (PCR) 08/12/22 08/12/22 22:46 22:46 WBC RBC Hgb Hct MCV MCH MCHC RDW Plt Count Neut % (Auto) Lymph % (Auto) [place] % (Auto) Eos % (Auto) Baso % (Auto) Neut # (Auto) Lymph # (Auto) [place] # (Auto) Eos # (Auto) Baso # (Auto) PT INR Sodium Potassium Chloride Carbon Dioxide BUN Creatinine Estimated GFR BUN/Creatinine Ratio Glucose Lactate Calcium Magnesium Total Bilirubin AST ALT Alkaline Phosphatase Troponin I NT-Pro-B Natriuret Pep Total Protein Albumin Globulin Albumin/Globulin Ratio Procalcitonin TSH Urine Color Yellow Urine Appearance Clear Urine pH 7.0 Ur Specific [place] 1.015 Urine Protein Negative Urine Glucose (UA) Negative Urine Ketones Trace H Urine Occult Blood Trace-intact Urine Nitrate Negative Urine Bilirubin Negative Urine Urobilinogen 0.2 Ur Leukocyte Esterase Negative Urine RBC 0-1/hpf Urine WBC None seen Ur Transition Epith Cell 0-1/hpf Urine Bacteria None seen Ur Culture Indicated? Cult not indicated Ur Random Sodium 81 Ethyl Alcohol SARS-CoV-2 (PCR) Influenza A (RT-PCR) Influenza B (RT-PCR) RSV (PCR) Assessment & Plan Assessment & Plan narrative: Abdirashid Yan 71-year-old male with a history of emphysema, COPD hypertension, gout, chronic LBP, permanently disabled, heavy alcohol use and abuse, and tobacco abuse who presented to the ED complaining of worsening shortness of breath, fatigue and complaining brain just does not work for the past 3 days. That reports he may have had a fall but denies hitting his head or loss of consciousness. Patient admitted with sepsis without septic shock COPD exacerbation severe hyponatremia, hypomagnesemia, myocardial injury/NSTEMI to the ICU. 1. Hyponatremia, severe, acute, with hypomagnesemia, acute present on admission -as evidence by sodium 107-likely due to hypovolemia -R/o hypertonic hyponatremia, pseudo hyponatremia due to hyperlipidemia, SIADH, hypothyroidism, secondary adrenal insufficiency, acquired reset Osmostat of chronic illness, thiazide- induced hyponatremia. -patient admitted to ICU, tele petrol tanker driver consult, placed on seizure precautions, Neuro checks -LR bolus provided followed by NS at 100 cc/HR-for gradual increases sodium by no more than 4-6 in the 1st 24 hours. -BNP q.4 hours, urine sodium, urine osmolality, uric acid, TSH, Mcginnis placed for strict I&O -initial magnesium 1.3, 4Gram provided-trend q.4 hours -PT OT eval once patient has improved and stabilized 2. COPD exacerbation, with SOB, emphysema, acute on chronic, present on admission -patient currently on 2 L nasal cannula satting above 90% -respiratory consult, DuoNebs q.4 hours, incentive spirometry, prednisone 40 mg p.o. q.day x5 days -requested from nursing records from [facility] were patient is followed by marketing education teacher -recommend outpatient follow-up for sleep study and evaluation for sleep apnea possible chronic home O2 -continue Spiriva/Advair 3. Myocardial injury, (NSTEMI)as evidenced by troponins above 99 percentile, acute, present on admission -initial troponin 0.043, repeat 0.048, will continue to trend -request records patient denies any previous stress test or echo. Lipids, ASA -ordered echo, will defer stress test at this time due to patient's respiratory status and weakness due to hyponatremia 4. Sepsis without septic shock, likely due to hypovolemia, metabolic, respiratory, acute, present on admission -sofa score 3 -secondary to hyponatremia, hypomagnesemia, COPD exacerbation - sodium 107, chloride 67, potassium normal 4.2, creatinine normal 0.58, bili 1.7, AST 65, alk-phos 150, sofa score: 3, no gap, Mag 1.3 5. Alcohol abuse, chronic, present on admission, monitor for alcohol withdrawal -patient admitted under [facility] protocol - drinking for several years 2-3 6 packs of beers per night with 4-6 glasses of whiskey until he would pass out after work. He reports recently cutting back to 3-4 glasses of whiskey per night. Patient also has been a 2 pack-a-day smoker for several decades, reports cutting back to 1 pack a day recently, occasionally has THC edibles, denies any other substance use. -initiated Librium 25 mg q.6 hours -monitor for over-sedation may need to decrease dosage or frequency based on response 6. Tobacco abuse, continuous, present on admission -encouraged smoking cessation 7. Malnutrition, mild,acute on chronic, present on admission -patient's malnutrition places them at high risk for medical and surgical complications because of the severe malnutrition in relation to acute illness/chronic illness. This increases the difficulty in complexity of medical management and increases the chances poor outcomes such as mortality and morbidity as well as impaired wound healing, and immune suppression. -dietary consult ordered to evaluate and implement steps to improve caloric intake and nutrition. 8. Hypertension, essential, acute on chronic, present on admission -continue lisinopril and indapamide Code status:DNR Surrogate decision maker: Sister Toña PULIDO PCR: Negative DVT/VTE prophylaxis: Lovenox and SCDs Disposition: Patient admitted to the ICU critical care admit 60 minutes spent, patient expected length of stay greater than 2 midnights. I have utilized all available immediate resources to obtain, update, or review the patient's current medications. I confirmed that the patient's advanced care plan is present, Code status is documented and/or surrogate decision maker is listed in the patient's medical record. I have personally reviewed patient's chart notes from PCP, specialists, diagnostic imaging, and laboratory results. Time Spent With Patient Critical Care time: I spent a total of [] minutes of critical care time on this patient's care today; this time is exclusive of procedural time.
[2022-08-13] VITALS (30 sets, daily range): BP systolic 79–163; BP diastolic 43–82; PULSE 81–99; RESP 10–35; TEMP 36.5–36.7; O2SAT 89–96; BMI 21.2
[2022-08-13 00:11] LABS: Blood Urea Nitrogen 11 mg/dL (9-20); Calcium 8.6 mg/dL (8.4-10.2); Carbon Dioxide 30 mmol/L (22-32); Estimated Glomerular Filt Rate > 60 mL/min (>60); Glucose 92 mg/dL (80-110); HEMOLYSIS < 15 (0-50); Potassium 3.9 mmol/L (3.4-5.1); Uric Acid 2.2 mg/dL (3.5-8.5)
[2022-08-13 00:13] LABS: Sodium 107 mmol/L (137-145)
[2022-08-13 00:14] LABS: Chloride 67 mmol/L (98-107)
[2022-08-13 00:21] LABS: NT-proBNP (BNP-Adult 18+) 195 pg/mL (<125)
[2022-08-13 00:31] LABS: Gamma Glutamyl Transpeptidase 85 U/L (15-73)
[2022-08-13 00:43] LABS: TSH w/ Reflex to FT4 1.31 uIU/mL (0.47-4.68)
--- NOTE | 2022-08-13 00:48 | P.TELICUCN_ITS ---
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 Associated with decrease appetite and low energy. In ER, CTH negative for acute abnormality. CXR showed hyperinflated lung with no dense consolidation. Labs notable for Na 107, Cl 67, Mg 1.3, BNP 176. Started on NS 100 mL/hr and admitted to ICU for further management. In ICU, repeat Na 107. Ordered 1 liter LR bolus. On camera assessment, patient is not in distress. PFSH Social History household members: none Smoking Status: Current every day smoker alcohol intake: current Current Medications Current Medications Medications: Visit Medications (administered) Generic Name Dose Route Start Last Admin Trade Name Freq PRN Reason Stop Dose Admin Sodium Chloride 1,000 mls @ 100 mls/hr 08/12/22 21:15 08/13/22 00:01 Normal Saline 0.9% IV 100 mls/hr CONT AMY Infusion Exam Vital Signs (past 8 hours): - 08/12/22 19:50 08/12/22 20:00 08/12/22 20:05 Temperature 98.8 F Pulse Rate 93 H Respiratory Rate 24 Blood Pressure 158/75 H 153/71 H 141/67 H Pulse Oximetry 93 Oxygen Delivery Method Room Air Oxygen Flow Rate 08/12/22 20:05 08/12/22 20:29 08/12/22 20:29 Temperature Pulse Rate 92 H 93 H Respiratory Rate 25 H Blood Pressure 158/79 H Pulse Oximetry 93 97 Oxygen Delivery Method Nasal Cannula Nasal Cannula Oxygen Flow Rate 2 2 08/12/22 20:30 08/12/22 20:30 08/12/22 21:00 Temperature Pulse Rate 92 H Respiratory Rate 25 H Blood Pressure 144/81 H 158/75 H Pulse Oximetry 98 Oxygen Delivery Method Nasal Cannula Oxygen Flow Rate 2 08/12/22 21:00 08/12/22 21:30 08/12/22 21:30 Temperature Pulse Rate 93 H 96 H Respiratory Rate 20 21 Blood Pressure 151/69 H Pulse Oximetry 94 98 Oxygen Delivery Method Nasal Cannula Oxygen Flow Rate 2 08/12/22 22:00 08/12/22 22:00 08/12/22 22:30 Temperature Pulse Rate 88 89 Respiratory Rate 15 16 Blood Pressure 136/63 Pulse Oximetry 96 97 Oxygen Delivery Method Oxygen Flow Rate 08/12/22 22:31 08/12/22 22:31 08/12/22 23:00 Temperature Pulse Rate 89 95 H Respiratory Rate 16 21 Blood Pressure 145/67 H Pulse Oximetry 97 96 Oxygen Delivery Method Oxygen Flow Rate 08/12/22 23:01 08/12/22 23:01 08/12/22 23:30 Temperature Pulse Rate 94 H Respiratory Rate 20 Blood Pressure 147/94 H 148/73 H Pulse Oximetry 96 Oxygen Delivery Method Oxygen Flow Rate 08/12/22 23:30 08/12/22 23:58 08/12/22 23:58 Temperature Pulse Rate 89 93 H Respiratory Rate 17 18 Blood Pressure 169/77 H Pulse Oximetry 94 93 Oxygen Delivery Method Oxygen Flow Rate 08/13/22 00:00 08/13/22 00:00 Temperature 97.9 F Pulse Rate 93 H Respiratory Rate 22 Blood Pressure 163/69 H Pulse Oximetry 93 Oxygen Delivery Method Oxygen Flow Rate Oxygen Delivery Method Nasal Cannula Oxygen Flow Rate 2 Narrative Exam Narrative: Not in distress Objective Labs 08/12/22 20:19 08/12/22 23:40 Labs: Laboratory Results - last 24 hr 08/12/22 08/12/22 08/12/22 20:13 20:19 20:19 WBC 8.0 RBC 4.39 L Hgb 14.1 Hct 40.4 L MCV 92.0 MCH 32.1 MCHC 34.9 RDW 14.1 Plt Count 166 Neut % (Auto) 77.3 H Lymph % (Auto) 11.9 L [place] % (Auto) 8.7 Eos % (Auto) 1.6 L Baso % (Auto) 0.5 Neut # (Auto) 6200 Lymph # (Auto) 1000 L [place] # (Auto) 700 Eos # (Auto) 100 Baso # (Auto) 0 PT 10.8 INR 0.9 Sodium Potassium Chloride Carbon Dioxide BUN Creatinine Estimated GFR BUN/Creatinine Ratio Glucose Lactate Uric Acid Calcium Magnesium Total Bilirubin GGT AST ALT Alkaline Phosphatase Troponin I NT-Pro-B Natriuret Pep Total Protein Albumin Globulin Albumin/Globulin Ratio Procalcitonin TSH Urine Color Urine Appearance Urine pH Ur Specific [place] Urine Protein Urine Glucose (UA) Urine Ketones Urine Occult Blood Urine Nitrate Urine Bilirubin Urine Urobilinogen Ur Leukocyte Esterase Urine RBC Urine WBC Ur Transition Epith Cell Urine Bacteria Ur Culture Indicated? Ur Random Sodium Ethyl Alcohol SARS-CoV-2 (PCR) Negative Influenza A (RT-PCR) Flu a negative Influenza B (RT-PCR) Flu b negative RSV (PCR) Negative 08/12/22 08/12/22 08/12/22 20:19 20:19 20:19 WBC RBC Hgb Hct MCV MCH MCHC RDW Plt Count Neut % (Auto) Lymph % (Auto) [place] % (Auto) Eos % (Auto) Baso % (Auto) Neut # (Auto) Lymph # (Auto) [place] # (Auto) Eos # (Auto) Baso # (Auto) PT INR Sodium 107 L* Potassium 4.2 Chloride 67 L* Carbon Dioxide 31 BUN 11 Creatinine 0.58 L Estimated GFR > 60 BUN/Creatinine Ratio 19.0 Glucose 87 Lactate 1.7 Uric Acid Calcium 8.9 Magnesium Total Bilirubin 1.7 H GGT AST 65 H ALT 42 Alkaline Phosphatase 150 H Troponin I 0.043 H NT-Pro-B Natriuret Pep 176 H Total Protein 8.0 Albumin 4.1 Globulin 3.9 Albumin/Globulin Ratio 1.1 Procalcitonin 0.07 TSH Urine Color Urine Appearance Urine pH Ur Specific [place] Urine Protein Urine Glucose (UA) Urine Ketones Urine Occult Blood Urine Nitrate Urine Bilirubin Urine Urobilinogen Ur Leukocyte Esterase Urine RBC Urine WBC Ur Transition Epith Cell Urine Bacteria Ur Culture Indicated? Ur Random Sodium Ethyl Alcohol SARS-CoV-2 (PCR) Influenza A (RT-PCR) Influenza B (RT-PCR) RSV (PCR) 08/12/22 08/12/22 08/12/22 20:19 22:10 22:10 WBC RBC Hgb Hct MCV MCH MCHC RDW Plt Count Neut % (Auto) Lymph % (Auto) [place] % (Auto) Eos % (Auto) Baso % (Auto) Neut # (Auto) Lymph # (Auto) [place] # (Auto) Eos # (Auto) Baso # (Auto) PT INR Sodium Potassium Chloride Carbon Dioxide BUN Creatinine Estimated GFR BUN/Creatinine Ratio Glucose Lactate Uric Acid Calcium Magnesium 1.3 L Total Bilirubin GGT AST ALT Alkaline Phosphatase Troponin I 0.048 H NT-Pro-B Natriuret Pep Total Protein Albumin Globulin Albumin/Globulin Ratio Procalcitonin TSH 1.05 Urine Color Urine Appearance Urine pH Ur Specific [place] Urine Protein Urine Glucose (UA) Urine Ketones Urine Occult Blood Urine Nitrate Urine Bilirubin Urine Urobilinogen Ur Leukocyte Esterase Urine RBC Urine WBC Ur Transition Epith Cell Urine Bacteria Ur Culture Indicated? Ur Random Sodium Ethyl Alcohol < 10 SARS-CoV-2 (PCR) Influenza A (RT-PCR) Influenza B (RT-PCR) RSV (PCR) 08/12/22 08/12/22 08/12/22 22:46 22:46 23:40 WBC RBC Hgb Hct MCV MCH MCHC RDW Plt Count Neut % (Auto) Lymph % (Auto) [place] % (Auto) Eos % (Auto) Baso % (Auto) Neut # (Auto) Lymph # (Auto) [place] # (Auto) Eos # (Auto) Baso # (Auto) PT INR Sodium 107 L* Potassium 3.9 Chloride 67 L* Carbon Dioxide 30 BUN 11 Creatinine 0.58 L Estimated GFR > 60 BUN/Creatinine Ratio 19.0 Glucose 92 Lactate Uric Acid Calcium 8.6 Magnesium Total Bilirubin GGT AST ALT Alkaline Phosphatase Troponin I NT-Pro-B Natriuret Pep Total Protein Albumin Globulin Albumin/Globulin Ratio Procalcitonin TSH Urine Color Yellow Urine Appearance Clear Urine pH 7.0 Ur Specific [place] 1.015 Urine Protein Negative Urine Glucose (UA) Negative Urine Ketones Trace H Urine Occult Blood Trace-intact Urine Nitrate Negative Urine Bilirubin Negative Urine Urobilinogen 0.2 Ur Leukocyte Esterase Negative Urine RBC 0-1/hpf Urine WBC None seen Ur Transition Epith Cell 0-1/hpf Urine Bacteria None seen Ur Culture Indicated? Cult not indicated Ur Random Sodium 81 Ethyl Alcohol SARS-CoV-2 (PCR) Influenza A (RT-PCR) Influenza B (RT-PCR) RSV (PCR) 08/12/22 08/12/22 08/12/22 23:40 23:40 23:40 WBC RBC Hgb Hct MCV MCH MCHC RDW Plt Count Neut % (Auto) Lymph % (Auto) [place] % (Auto) Eos % (Auto) Baso % (Auto) Neut # (Auto) Lymph # (Auto) [place] # (Auto) Eos # (Auto) Baso # (Auto) PT INR Sodium Potassium Chloride Carbon Dioxide BUN Creatinine Estimated GFR BUN/Creatinine Ratio Glucose Lactate Uric Acid 2.2 L Calcium Magnesium Total Bilirubin GGT 85 H AST ALT Alkaline Phosphatase Troponin I NT-Pro-B Natriuret Pep 195 H Total Protein Albumin Globulin Albumin/Globulin Ratio Procalcitonin TSH Urine Color Urine Appearance Urine pH Ur Specific [place] Urine Protein Urine Glucose (UA) Urine Ketones Urine Occult Blood Urine Nitrate Urine Bilirubin Urine Urobilinogen Ur Leukocyte Esterase Urine RBC Urine WBC Ur Transition Epith Cell Urine Bacteria Ur Culture Indicated? Ur Random Sodium Ethyl Alcohol SARS-CoV-2 (PCR) Influenza A (RT-PCR) Influenza B (RT-PCR) RSV (PCR) 08/12/22 23:40 WBC RBC Hgb Hct MCV MCH MCHC RDW Plt Count Neut % (Auto) Lymph % (Auto) [place] % (Auto) Eos % (Auto) Baso % (Auto) Neut # (Auto) Lymph # (Auto) [place] # (Auto) Eos # (Auto) Baso # (Auto) PT INR Sodium Potassium Chloride Carbon Dioxide BUN Creatinine Estimated GFR BUN/Creatinine Ratio Glucose Lactate Uric Acid Calcium Magnesium Total Bilirubin GGT AST ALT Alkaline Phosphatase Troponin I NT-Pro-B Natriuret Pep Total Protein Albumin Globulin Albumin/Globulin Ratio Procalcitonin TSH 1.31 Urine Color Urine Appearance Urine pH Ur Specific [place] Urine Protein Urine Glucose (UA) Urine Ketones Urine Occult Blood Urine Nitrate Urine Bilirubin Urine Urobilinogen Ur Leukocyte Esterase Urine RBC Urine WBC Ur Transition Epith Cell Urine Bacteria Ur Culture Indicated? Ur Random Sodium Ethyl Alcohol SARS-CoV-2 (PCR) Influenza A (RT-PCR) Influenza B (RT-PCR) RSV (PCR) Assessment & Plan Assessment & Plan narrative: NEURO: # Generalized weakness -- Secondary to severe hyponatermia -- Hyponatremia management as below -- Seek PT/OT and OOB as tolerated -- Fall precaution RESP: # AECOPD -- No PFTs on file -- On prednisone 40 mg X 5 days -- Cont duoneb [facility]: # HTN -- Goal SBP < 140 -- Recommend adding norvasc 10 mg daily ; # Hyponatremia -- Secondary to hypovolemia hyponatremia -- Check serum osm, urine osm, urine Na, and TSH -- On NS 100 cc/hr -- Ordered 1 liter LR bolus -- Monitor closely for UOP -- Goal Na 115 by 08/13 8 pm -- Trend BMP every 4 hours ENDO: -- Goal BS < 180 Time Spent With Patient Critical Care time: I spent a total of 34 minutes of critical care time on this patient's care today; this time is exclusive of procedural time.
[2022-08-13] MEDS: LACTATED RINGERS 1,000 ML 1000 ML IV (01:18)
[2022-08-13] MEDS: OXYCODONE IR 5 MG TABLET PO ×4 (01:18→21:48)
[2022-08-13 01:49] LABS: Lactate (Lactic Acid) 0.7 mmol/L (0.7-2.1)
[2022-08-13] MEDS: MAGNESIUM SULFATE 2 GM/50 ML PIGGYBACK IV (04:09)
--- NOTE | 2022-08-13 04:19 | PC.NURSE ---
0400- Last hour uop was 1125. Dr. Acharya notified and NS paused. CARLO Schmidt notified as well. Waiting on lab to come and draw AM labs. Will monitor closely.
[2022-08-13 05:00] LABS: Add Manual Diff / Slide Review NO; Basophils Absolute Auto 0 /uL (0-100); Basophils Percent Auto 0.2 % (0-2); Eosinophils Absolute Auto 100 /uL (0-450); Eosinophils Percent Auto 1.6 % (2-4); Hematocrit 38.4 % (41-53); Hemoglobin 13.3 g/dL (13.5-17.5); Lymphocytes Absolute Auto 1100 /uL (1100-4500); Lymphocytes Percent Auto 14.1 % (25-40); Mean Corpuscular HGB Conc 34.5 % (30-36); Mean Corpuscular Hemoglobin 32.2 PG (26-34); Mean Corpuscular Volume 93.3 fL (80-100); Monocytes Absolute Auto 800 /uL (0-900); Monocytes Percent Auto 10.7 % (3-14); Neutrophils Absolute Auto 5800 /uL (1500-7000); Neutrophils Percent Auto 73.4 % (50-75); Platelet Count 134 X10^3/uL (150-400); Red Blood Cell Count 4.11 X10^6/uL (4.5-5.9); Red Cell Distribution Width 14.2 % (11.6-14.8); White Blood Cell Count 7.9 X10^3/uL (4.5-11.0)
[2022-08-13 05:05] LABS: Alanine Aminotransferase 35 IU/L (<50); Albumin 3.3 g/dL (3.5-5.0); Alkaline Phosphatase 113 U/L (38-126); Aspartate Aminotransferase 53 IU/L (17-59); Bilirubin Total 1.4 mg/dL (0.2-1.3); Blood Urea Nitrogen 9 mg/dL (9-20); Calcium 8.3 mg/dL (8.4-10.2); Carbon Dioxide 32 mmol/L (22-32); Cholesterol 158 mg/dL (140-199); Estimated Glomerular Filt Rate > 60 mL/min (>60); Globulin 3.3 g/dL (1.7-4.1); Glucose 75 mg/dL (80-110); HDL Cholesterol 95 mg/dL (40-60); HEMOLYSIS < 15 (0-50); LDL Cholesterol Calculated 53 mg/dL (<100); Magnesium 1.3 mg/dL (1.6-2.3); Potassium 3.8 mmol/L (3.4-5.1); Total Protein 6.6 g/dL (6.3-8.2); Triglycerides 50 mg/dL (35-150)
[2022-08-13 05:15] LABS: Troponin I 0.046 ng/mL (0.01-0.034)
[2022-08-13 05:25] LABS: Chloride 75 mmol/L (98-107); Sodium 114 mmol/L (137-145)
[2022-08-13] MEDS: ALBUTEROL/IPRATROPIUM 3 ML AMPUL INH (05:40)
--- NOTE | 2022-08-13 05:54 | PM.EICU.INT ---
Teleintensivist Intervention Date/Time Was camera activated?: No Issue(s) Addressed Issue(s): Abnormal labs Intervention(s) :: Call from RN that patient's Na is 114. Last Na was 107 @ 23:40 on 08/12. Patient previously received NS and LR. Previous team noted significant UOP. - LR/NS stopped. Started on D5W @ 150/hour. Repeat Na level in 2 hours @ 7:45 a.m. - Goal Na level is 114-115 by 23:40 today (08/13) to avoid overcorrection. - If repeat Na level continues to climb above goal, will recommend a plan for initiation of DDAVP, continued D5W and frequent Na checks to achieve goal.
[2022-08-13] MEDS: chlordiazePOXIDE 25 MG CAPSULE PO ×4 (06:03→23:07)
[2022-08-13] MEDS: DEXTROSE 5% WATER 1,000 ML 150 ML IV ×2 (06:07→18:15)
[2022-08-13 08:10] LABS: BUN Creatinine Ratio 17.7 (6-22); Blood Urea Nitrogen 11 mg/dL (9-20); Calcium 8.7 mg/dL (8.4-10.2); Carbon Dioxide 34 mmol/L (22-32); Estimated Glomerular Filt Rate > 60 mL/min (>60); Glucose 103 mg/dL (80-110); HEMOLYSIS < 15 (0-50); Potassium 3.7 mmol/L (3.4-5.1)
[2022-08-13] MEDS: LIDOCAINE PATCH 1 EACH ADH..PATCH TOP (08:17)
[2022-08-13] MEDS: ENOXAPARIN 40 MG/0.4 ML SYRINGE SUBCUT (08:17)
[2022-08-13] MEDS: NICOTINE 14 PATCH 14 MG TOP (08:18)
[2022-08-13] MEDS: predniSONE 20 MG TABLET 40 MG PO (08:18)
[2022-08-13] MEDS: ASPIRIN EC 81 MG TABLET PO (08:20)
[2022-08-13 08:31] LABS: Chloride 72 mmol/L (98-107); Sodium 113 mmol/L (137-145)
--- NOTE | 2022-08-13 10:20 | PM.PN.1 ---
Subjective Subjective Date Patient Seen: 08/13/22 Interval history: Patient has no complaints. He is currently eating. Sodium alex to 118 and given DDAVP and D5 at 150cc/hr. Goal is 115 at 2300 tonight. Exam Vital Signs (past 8 hours): - 08/13/22 03:00 08/13/22 03:00 08/13/22 04:00 Temperature Pulse Rate 86 Respiratory Rate 20 Blood Pressure 121/56 L 128/59 L Pulse Oximetry 92 Oxygen Delivery Method Oxygen Flow Rate 1 08/13/22 04:00 08/13/22 05:00 08/13/22 05:00 Temperature 97.7 F Pulse Rate 87 93 H Respiratory Rate 21 24 Blood Pressure 121/59 L Pulse Oximetry 92 92 Oxygen Delivery Method Oxygen Flow Rate 1 1 08/13/22 05:41 08/13/22 05:49 08/13/22 06:00 Temperature Pulse Rate Respiratory Rate Blood Pressure 110/52 L Pulse Oximetry 92 Oxygen Delivery Method Nasal Cannula Nasal Cannula Oxygen Flow Rate 1 08/13/22 06:00 08/13/22 07:00 08/13/22 07:00 Temperature Pulse Rate 92 H 84 Respiratory Rate 19 22 Blood Pressure 85/49 L Pulse Oximetry 93 93 Oxygen Delivery Method Oxygen Flow Rate 08/13/22 07:01 08/13/22 07:01 08/13/22 07:02 Temperature Pulse Rate 82 Respiratory Rate 17 Blood Pressure 79/43 L 92/52 L Pulse Oximetry 93 Oxygen Delivery Method Oxygen Flow Rate 08/13/22 07:02 Temperature Pulse Rate 84 Respiratory Rate 25 H Blood Pressure Pulse Oximetry 93 Oxygen Delivery Method Oxygen Flow Rate Oxygen Delivery Method Nasal Cannula Oxygen Flow Rate 1 Narrative Exam Narrative: General: Patient is a thin frail looking elderly male who appears older than stated age, mildly anxious HEENT: Normocephalic, atraumatic, extraocular muscles intact, oral pharynx is clear and mucous membranes are very dry. Neck trachea is midline, Negative for JVD Chest: Noted barrel chest, patient was speaking, which he continually tries to ramble having to breathe every 3-4 words demonstrates nasal flaring, increasing retractions, tachypneic and labored breathing-patient notably be is becoming more and more anxious the more he speaks. Lungs: Auscultation of all lung khan are decreased poor air exchange, equal throughout, profuse expiratory wheezing consistent throughout, patient appears quite dry hypovolemic Cardio: regular rate and rhythm without murmur, rubs, or gallops, no carotid bruit, no cardiac pulsations present. Abdomen: Soft -but grimace with palpation, negative for organomegaly, or masses. Bowel sounds are present in all 4 quadrants without guarding, no CVA tenderness. Musculoskeletal: Muscle strength and tone appear wasted equal but less than expected for age, no deformity, crepitus, effusions, cyanosis, clubbing present. Trace bilateral nonpitting bilateral lower extremity edema Full range of motion intact radial and pedal pulses are normal. Skin: Warm very dry and intact without rashes, ulcerations or petechiae. Neuro: Alert and orientated x3-but appears confused easily distracted difficulty following conversation. Moves all extremities, sensation to touch intact, no gross deficits noted of cranial nerves. Psych: Patient appears chronically ill, almost wasting type appearance, severely anxious affect, mental status attitude thought context and judgment are scattered, disorganized, inappropriate for age. Objective Labs 08/13/22 04:33 08/13/22 07:50 Labs: Laboratory Results - last 24 hr 08/12/22 08/12/22 08/12/22 20:13 20:19 20:19 WBC 8.0 RBC 4.39 L Hgb 14.1 Hct 40.4 L MCV 92.0 MCH 32.1 MCHC 34.9 RDW 14.1 Plt Count 166 Neut % (Auto) 77.3 H Lymph % (Auto) 11.9 L Ed[place]ds % (Auto) 8.7 Eos % (Auto) 1.6 L Baso % (Auto) 0.5 Neut # (Auto) 6200 Lymph # (Auto) 1000 L [place] # (Auto) 700 Eos # (Auto) 100 Baso # (Auto) 0 PT 10.8 INR 0.9 Sodium Potassium Chloride Carbon Dioxide BUN Creatinine Estimated GFR BUN/Creatinine Ratio Glucose Lactate Uric Acid Calcium Magnesium Total Bilirubin GGT AST ALT Alkaline Phosphatase Troponin I NT-Pro-B Natriuret Pep Total Protein Albumin Globulin Albumin/Globulin Ratio Triglycerides Cholesterol LDL Cholesterol, Calc HDL Cholesterol Procalcitonin TSH Urine Color Urine Appearance Urine pH Ur Specific [place] Urine Protein Urine Glucose (UA) Urine Ketones Urine Occult Blood Urine Nitrate Urine Bilirubin Urine Urobilinogen Ur Leukocyte Esterase Urine RBC Urine WBC Ur Transition Epith Cell Urine Bacteria Ur Culture Indicated? Ur Random Sodium Nasal Screen MRSA (PCR) Ethyl Alcohol SARS-CoV-2 (PCR) Negative Influenza A (RT-PCR) Flu a negative Influenza B (RT-PCR) Flu b negative RSV (PCR) Negative 08/12/22 08/12/22 08/12/22 20:19 20:19 20:19 WBC RBC Hgb Hct MCV MCH MCHC RDW Plt Count Neut % (Auto) Lymph % (Auto) [place] % (Auto) Eos % (Auto) Baso % (Auto) Neut # (Auto) Lymph # (Auto) [place] # (Auto) Eos # (Auto) Baso # (Auto) PT INR Sodium 107 L* Potassium 4.2 Chloride 67 L* Carbon Dioxide 31 BUN 11 Creatinine 0.58 L Estimated GFR > 60 BUN/Creatinine Ratio 19.0 Glucose 87 Lactate 1.7 Uric Acid Calcium 8.9 Magnesium Total Bilirubin 1.7 H GGT AST 65 H ALT 42 Alkaline Phosphatase 150 H Troponin I 0.043 H NT-Pro-B Natriuret Pep 176 H Total Protein 8.0 Albumin 4.1 Globulin 3.9 Albumin/Globulin Ratio 1.1 Triglycerides Cholesterol LDL Cholesterol, Calc HDL Cholesterol Procalcitonin 0.07 TSH Urine Color Urine Appearance Urine pH Ur Specific [place] Urine Protein Urine Glucose (UA) Urine Ketones Urine Occult Blood Urine Nitrate Urine Bilirubin Urine Urobilinogen Ur Leukocyte Esterase Urine RBC Urine WBC Ur Transition Epith Cell Urine Bacteria Ur Culture Indicated? Ur Random Sodium Nasal Screen MRSA (PCR) Ethyl Alcohol SARS-CoV-2 (PCR) Influenza A (RT-PCR) Influenza B (RT-PCR) RSV (PCR) 08/12/22 08/12/22 08/12/22 20:19 22:10 22:10 WBC RBC Hgb Hct MCV MCH MCHC RDW Plt Count Neut % (Auto) Lymph % (Auto) Ed[place] % (Auto) Eos % (Auto) Baso % (Auto) Neut # (Auto) Lymph # (Auto) [place] # (Auto) Eos # (Auto) Baso # (Auto) PT INR Sodium Potassium Chloride Carbon Dioxide BUN Creatinine Estimated GFR BUN/Creatinine Ratio Glucose Lactate Uric Acid Calcium Magnesium 1.3 L Total Bilirubin GGT AST ALT Alkaline Phosphatase Troponin I 0.048 H NT-Pro-B Natriuret Pep Total Protein Albumin Globulin Albumin/Globulin Ratio Triglycerides Cholesterol LDL Cholesterol, Calc HDL Cholesterol Procalcitonin TSH 1.05 Urine Color Urine Appearance Urine pH Ur Specific [place] Urine Protein Urine Glucose (UA) Urine Ketones Urine Occult Blood Urine Nitrate Urine Bilirubin Urine Urobilinogen Ur Leukocyte Esterase Urine RBC Urine WBC Ur Transition Epith Cell Urine Bacteria Ur Culture Indicated? Ur Random Sodium Nasal Screen MRSA (PCR) Ethyl Alcohol < 10 SARS-CoV-2 (PCR) Influenza A (RT-PCR) Influenza B (RT-PCR) RSV (PCR) 08/12/22 08/12/22 08/12/22 22:46 22:46 23:40 WBC RBC Hgb Hct MCV MCH MCHC RDW Plt Count Neut % (Auto) Lymph % (Auto) [place] % (Auto) Eos % (Auto) Baso % (Auto) Neut # (Auto) Lymph # (Auto) [place] # (Auto) Eos # (Auto) Baso # (Auto) PT INR Sodium 107 L* Potassium 3.9 Chloride 67 L* Carbon Dioxide 30 BUN 11 Creatinine 0.58 L Estimated GFR > 60 BUN/Creatinine Ratio 19.0 Glucose 92 Lactate Uric Acid Calcium 8.6 Magnesium Total Bilirubin GGT AST ALT Alkaline Phosphatase Troponin I NT-Pro-B Natriuret Pep Total Protein Albumin Globulin Albumin/Globulin Ratio Triglycerides Cholesterol LDL Cholesterol, Calc HDL Cholesterol Procalcitonin TSH Urine Color Yellow Urine Appearance Clear Urine pH 7.0 Ur Specific [place] 1.015 Urine Protein Negative Urine Glucose (UA) Negative Urine Ketones Trace H Urine Occult Blood Trace-intact Urine Nitrate Negative Urine Bilirubin Negative Urine Urobilinogen 0.2 Ur Leukocyte Esterase Negative Urine RBC 0-1/hpf Urine WBC None seen Ur Transition Epith Cell 0-1/hpf Urine Bacteria None seen Ur Culture Indicated? Cult not indicated Ur Random Sodium 81 Nasal Screen MRSA (PCR) Ethyl Alcohol SARS-CoV-2 (PCR) Influenza A (RT-PCR) Influenza B (RT-PCR) RSV (PCR) 08/12/22 08/12/22 08/12/22 23:40 23:40 23:40 WBC RBC Hgb Hct MCV MCH MCHC RDW Plt Count Neut % (Auto) Lymph % (Auto) [place] % (Auto) Eos % (Auto) Baso % (Auto) Neut # (Auto) Lymph # (Auto) [place] # (Auto) Eos # (Auto) Baso # (Auto) PT INR Sodium Potassium Chloride Carbon Dioxide BUN Creatinine Estimated GFR BUN/Creatinine Ratio Glucose Lactate Uric Acid 2.2 L Calcium Magnesium Total Bilirubin GGT 85 H AST ALT Alkaline Phosphatase Troponin I NT-Pro-B Natriuret Pep 195 H Total Protein Albumin Globulin Albumin/Globulin Ratio Triglycerides Cholesterol LDL Cholesterol, Calc HDL Cholesterol Procalcitonin TSH Urine Color Urine Appearance Urine pH Ur Specific [place] Urine Protein Urine Glucose (UA) Urine Ketones Urine Occult Blood Urine Nitrate Urine Bilirubin Urine Urobilinogen Ur Leukocyte Esterase Urine RBC Urine WBC Ur Transition Epith Cell Urine Bacteria Ur Culture Indicated? Ur Random Sodium Nasal Screen MRSA (PCR) Ethyl Alcohol SARS-CoV-2 (PCR) Influenza A (RT-PCR) Influenza B (RT-PCR) RSV (PCR) 08/12/22 08/13/22 08/13/22 23:40 00:20 01:08 WBC RBC Hgb Hct MCV MCH MCHC RDW Plt Count Neut % (Auto) Lymph % (Auto) [place] % (Auto) Eos % (Auto) Baso % (Auto) Neut # (Auto) Lymph # (Auto) [place] # (Auto) Eos # (Auto) Baso # (Auto) PT INR Sodium Potassium Chloride Carbon Dioxide BUN Creatinine Estimated GFR BUN/Creatinine Ratio Glucose Lactate 0.7 Uric Acid Calcium Magnesium Total Bilirubin GGT AST ALT Alkaline Phosphatase Troponin I NT-Pro-B Natriuret Pep Total Protein Albumin Globulin Albumin/Globulin Ratio Triglycerides Cholesterol LDL Cholesterol, Calc HDL Cholesterol Procalcitonin TSH 1.31 Urine Color Urine Appearance Urine pH Ur Specific [place] Urine Protein Urine Glucose (UA) Urine Ketones Urine Occult Blood Urine Nitrate Urine Bilirubin Urine Urobilinogen Ur Leukocyte Esterase Urine RBC Urine WBC Ur Transition Epith Cell Urine Bacteria Ur Culture Indicated? Ur Random Sodium Nasal Screen MRSA (PCR) Negative for mrsa Ethyl Alcohol SARS-CoV-2 (PCR) Influenza A (RT-PCR) Influenza B (RT-PCR) RSV (PCR) 08/13/22 08/13/22 08/13/22 04:33 04:33 04:33 WBC 7.9 RBC 4.11 L Hgb 13.3 L Hct 38.4 L MCV 93.3 MCH 32.2 MCHC 34.5 RDW 14.2 Plt Count 134 L Neut % (Auto) 73.4 Lymph % (Auto) 14.1 L Ed[place] % (Auto) 10.7 Eos % (Auto) 1.6 L Baso % (Auto) 0.2 Neut # (Auto) 5800 Lymph # (Auto) 1100 [place] # (Auto) 800 Eos # (Auto) 100 Baso # (Auto) 0 PT INR Sodium Cancelled 114 L* Potassium Cancelled 3.8 Chloride Cancelled 75 L* Carbon Dioxide Cancelled 32 BUN Cancelled 9 Creatinine Cancelled 0.50 L Estimated GFR Cancelled > 60 BUN/Creatinine Ratio Cancelled 18.0 Glucose Cancelled 75 L Lactate Uric Acid Calcium Cancelled 8.3 L Magnesium 1.3 L Total Bilirubin 1.4 H GGT AST 53 ALT 35 Alkaline Phosphatase 113 Troponin I NT-Pro-B Natriuret Pep Total Protein 6.6 Albumin 3.3 L Globulin 3.3 Albumin/Globulin Ratio 1.0 Triglycerides 50 Cholesterol 158 LDL Cholesterol, Calc 53 HDL Cholesterol 95 H Procalcitonin TSH Urine Color Urine Appearance Urine pH Ur Specific [place] Urine Protein Urine Glucose (UA) Urine Ketones Urine Occult Blood Urine Nitrate Urine Bilirubin Urine Urobilinogen Ur Leukocyte Esterase Urine RBC Urine WBC Ur Transition Epith Cell Urine Bacteria Ur Culture Indicated? Ur Random Sodium Nasal Screen MRSA (PCR) Ethyl Alcohol SARS-CoV-2 (PCR) Influenza A (RT-PCR) Influenza B (RT-PCR) RSV (PCR) 08/13/22 08/13/22 04:33 07:50 WBC RBC Hgb Hct MCV MCH MCHC RDW Plt Count Neut % (Auto) Lymph % (Auto) [place] % (Auto) Eos % (Auto) Baso % (Auto) Neut # (Auto) Lymph # (Auto) [place] # (Auto) Eos # (Auto) Baso # (Auto) PT INR Sodium 113 L* Potassium 3.7 Chloride 72 L* Carbon Dioxide 34 H BUN 11 Creatinine 0.62 L Estimated GFR > 60 BUN/Creatinine Ratio 17.7 Glucose 103 Lactate Uric Acid Calcium 8.7 Magnesium Total Bilirubin GGT AST ALT Alkaline Phosphatase Troponin I 0.046 H NT-Pro-B Natriuret Pep Total Protein Albumin Globulin Albumin/Globulin Ratio Triglycerides Cholesterol LDL Cholesterol, Calc HDL Cholesterol Procalcitonin TSH Urine Color Urine Appearance Urine pH Ur Specific [place] Urine Protein Urine Glucose (UA) Urine Ketones Urine Occult Blood Urine Nitrate Urine Bilirubin Urine Urobilinogen Ur Leukocyte Esterase Urine RBC Urine WBC Ur Transition Epith Cell Urine Bacteria Ur Culture Indicated? Ur Random Sodium Nasal Screen MRSA (PCR) Ethyl Alcohol SARS-CoV-2 (PCR) Influenza A (RT-PCR) Influenza B (RT-PCR) RSV (PCR) [facility] Medical History (Updated 08/13/22 @ 05:41 by STACEY SalgueroP-) Alcohol abuse Continuous tobacco abuse Emphysema lung Essential hypertension Surgical History (Updated 08/13/22 @ 05:41 by KATHY Salguero) History of hernia repair Family History Father Cancer Mother Emphysema of lung Social History household members: none Smoking Status: Current every day smoker alcohol intake: current Assessment & Plan Assessment & Plan narrative: Abdirashid Yan 71-year-old male with a history of emphysema, COPD hypertension, gout, chronic LBP, permanently disabled, heavy alcohol use and abuse, and tobacco abuse who presented to the ED complaining of worsening shortness of breath, fatigue and complaining brain just does not work for the past 3 days. That reports he may have had a fall but denies hitting his head or loss of consciousness. Patient admitted with sepsis without septic shock COPD exacerbation severe hyponatremia, hypomagnesemia, myocardial injury/NSTEMI to the ICU. 1. Hyponatremia, severe, acute, with hypomagnesemia, acute present on admission -as evidence by sodium 107-likely due to hypovolemia -R/o hypertonic hyponatremia, pseudo hyponatremia due to hyperlipidemia, SIADH, hypothyroidism, secondary adrenal insufficiency, acquired reset Osmostat of chronic illness, thiazide- induced hyponatremia. 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 -BNP q.4 hours, urine sodium, urine osmolality, uric acid, TSH, Mcginnis placed for strict I&O -initial magnesium 1.3, 4Gram provided-trend q.4 hours -PT OT eval once patient has improved and stabilized -Na alex to 115, then lowered to 114 on D5 and then alex to 118 so given DDAVP and D5 increased to 150cc/hr 2. COPD exacerbation, with SOB, emphysema, acute on chronic, present on admission -patient currently on 2 L nasal cannula satting above 90% -respiratory consult, DuoNebs q.4 hours, incentive spirometry, prednisone 40 mg p.o. q.day x5 days -requested from nursing records from [facility] were patient is followed by anatomic pathology manager -recommend outpatient follow-up for sleep study and evaluation for sleep apnea possible chronic home O2 -continue Spiriva/Advair 3. Myocardial injury, (NSTEMI)as evidenced by troponins above 99 percentile, acute, present on admission -initial troponin 0.043, repeat 0.048, will continue to trend -request records patient denies any previous stress test or echo. Lipids, ASA -ordered echo, will defer stress test at this time due to patient's respiratory status and weakness due to hyponatremia 4. Sepsis without septic shock, likely due to hypovolemia, metabolic, respiratory, acute, present on admission, sepsis resolved -sofa score 3 -secondary to hyponatremia, hypomagnesemia, COPD exacerbation - sodium 107, chloride 67, potassium normal 4.2, creatinine normal 0.58, bili 1.7, AST 65, alk-phos 150, sofa score: 3, no gap, Mag 1.3 5. Alcohol abuse, chronic, present on admission, monitor for alcohol withdrawal -patient admitted under [facility] protocol - drinking for several years 2-3 6 packs of beers per night with 4-6 glasses of whiskey until he would pass out after work. He reports recently cutting back to 3-4 glasses of whiskey per night. Patient also has been a 2 pack-a-day smoker for several decades, reports cutting back to 1 pack a day recently, occasionally has THC edibles, denies any other substance use. -initiated Librium 25 mg q.6 hours -monitor for over-sedation may need to decrease dosage or frequency based on response 6. Tobacco abuse, continuous, present on admission -encouraged smoking cessation 7. Malnutrition, mild,acute on chronic, present on admission -patient's malnutrition places them at high risk for medical and surgical complications because of the severe malnutrition in relation to acute illness/chronic illness. This increases the difficulty in complexity of medical management and increases the chances poor outcomes such as mortality and morbidity as well as impaired wound healing, and immune suppression. -dietary consult ordered to evaluate and implement steps to improve caloric intake and nutrition. 8. Hypertension, essential, acute on chronic, present on admission -continue lisinopril and indapamide Code status:DNR Surrogate decision maker: Sister Toña PULIDO PCR: Negative DVT/VTE prophylaxis: Lovenox and SCDs Disposition: Home in several days following improvement of sodium. Time Spent With Patient Critical Care time: I spent a total of [] minutes of critical care time on this patient's care today; this time is exclusive of procedural time. Quality VTE Deep Vein Thrombosis/Pulmonary Embolism Present on Admission: No
--- NOTE | 2022-08-13 10:49 | P.TELICUPN_ITS ---
Subjective Subjective IF CAMERA ACTIVATED, patient seen via real-time interactive audiovisual communication: Camera activated Consent obtained for tele-return agent airport care: Yes Patient Location: ICU Provider location (State): [place] Other participants/roles: RN Subjective Interval history: Patient notes some continues shortness of breath. Feels slightly confused. Current Medications Current Medications Medications: Home Medications allopurinol 300 mg tablet 300 mg PO DAILY 08/13/22 [History Confirmed 08/13/22] fluticasone 500 mcg-salmeterol 50 mcg/dose blistr powdr for inhalation (Advair Diskus) 1 inh inhalation BID 08/13/22 [History Confirmed 08/13/22] indapamide 1.25 mg tablet 1.25 mg PO QAM 08/13/22 [History Confirmed 08/13/22] Visit Medications (administered) Generic Name Dose Route Start Last Admin Trade Name Freq PRN Reason Stop Dose Admin Albuterol/Ipratropium 3 ml 08/12/22 22:59 08/13/22 05:40 Albuterol/Ipratropium 3 Ml Ampul INH 3 ml [id number] PRN Administration Shortness Of Breath Or Wheezing Aspirin 81 mg 08/13/22 09:00 08/13/22 08:20 Aspirin Ec 81 Mg Tablet PO 81 mg DAILY AMY Administration Chlordiazepoxide HCl 25 mg 08/13/22 07:30 08/13/22 08:21 Chlordiazepoxide 25 Mg Capsule PO 25 mg Q8H AMY Administration Enoxaparin Sodium 40 mg 08/13/22 09:00 08/13/22 08:17 Enoxaparin 40 Mg/0.4 Ml Syringe SUBCUT 40 mg DAILY AMY Administration Dextrose 1,000 mls @ 100 mls/hr 08/13/22 06:00 08/13/22 10:18 Dextrose 5% Water IV 0 mls/hr CONT AMY Infusion Lidocaine 1 each 08/13/22 09:00 08/13/22 08:17 Lidocaine Patch 1 Each Adh..Patch TOP 1 each DAILY AMY Administration Nicotine 14 mg 08/13/22 09:00 08/13/22 08:18 Nicotine 14 Patch TOP 14 mg DAILY AMY Administration Oxycodone HCl 5 mg 08/13/22 00:41 08/13/22 08:19 Oxycodone Ir 5 Mg Tablet PO 5 mg Q6HR PRN Administration Pain, Moderate (4-6) Prednisone 40 mg 08/13/22 09:00 08/13/22 08:18 Prednisone 20 Mg Tablet PO 08/18/22 08:59 40 mg DAILY AMY Administration Objective Labs 08/13/22 04:33 08/13/22 07:50 Labs: Laboratory Results - last 24 hr 08/12/22 08/12/22 08/12/22 20:13 20:19 20:19 WBC 8.0 RBC 4.39 L Hgb 14.1 Hct 40.4 L MCV 92.0 MCH 32.1 MCHC 34.9 RDW 14.1 Plt Count 166 Neut % (Auto) 77.3 H Lymph % (Auto) 11.9 L [place] % (Auto) 8.7 Eos % (Auto) 1.6 L Baso % (Auto) 0.5 Neut # (Auto) 6200 Lymph # (Auto) 1000 L [place] # (Auto) 700 Eos # (Auto) 100 Baso # (Auto) 0 PT 10.8 INR 0.9 Sodium Potassium Chloride Carbon Dioxide BUN Creatinine Estimated GFR BUN/Creatinine Ratio Glucose Lactate Uric Acid Calcium Magnesium Total Bilirubin GGT AST ALT Alkaline Phosphatase Troponin I NT-Pro-B Natriuret Pep Total Protein Albumin Globulin Albumin/Globulin Ratio Triglycerides Cholesterol LDL Cholesterol, Calc HDL Cholesterol Procalcitonin TSH Urine Color Urine Appearance Urine pH Ur Specific [place] Urine Protein Urine Glucose (UA) Urine Ketones Urine Occult Blood Urine Nitrate Urine Bilirubin Urine Urobilinogen Ur Leukocyte Esterase Urine RBC Urine WBC Ur Transition Epith Cell Urine Bacteria Ur Culture Indicated? Ur Random Sodium Nasal Screen MRSA (PCR) Ethyl Alcohol SARS-CoV-2 (PCR) Negative Influenza A (RT-PCR) Flu a negative Influenza B (RT-PCR) Flu b negative RSV (PCR) Negative 08/12/22 08/12/22 08/12/22 20:19 20:19 20:19 WBC RBC Hgb Hct MCV MCH MCHC RDW Plt Count Neut % (Auto) Lymph % (Auto) [place] % (Auto) Eos % (Auto) Baso % (Auto) Neut # (Auto) Lymph # (Auto) [place] # (Auto) Eos # (Auto) Baso # (Auto) PT INR Sodium 107 L* Potassium 4.2 Chloride 67 L* Carbon Dioxide 31 BUN 11 Creatinine 0.58 L Estimated GFR > 60 BUN/Creatinine Ratio 19.0 Glucose 87 Lactate 1.7 Uric Acid Calcium 8.9 Magnesium Total Bilirubin 1.7 H GGT AST 65 H ALT 42 Alkaline Phosphatase 150 H Troponin I 0.043 H NT-Pro-B Natriuret Pep 176 H Total Protein 8.0 Albumin 4.1 Globulin 3.9 Albumin/Globulin Ratio 1.1 Triglycerides Cholesterol LDL Cholesterol, Calc HDL Cholesterol Procalcitonin 0.07 TSH Urine Color Urine Appearance Urine pH Ur Specific [place] Urine Protein Urine Glucose (UA) Urine Ketones Urine Occult Blood Urine Nitrate Urine Bilirubin Urine Urobilinogen Ur Leukocyte Esterase Urine RBC Urine WBC Ur Transition Epith Cell Urine Bacteria Ur Culture Indicated? Ur Random Sodium Nasal Screen MRSA (PCR) Ethyl Alcohol SARS-CoV-2 (PCR) Influenza A (RT-PCR) Influenza B (RT-PCR) RSV (PCR) 08/12/22 08/12/22 08/12/22 20:19 22:10 22:10 WBC RBC Hgb Hct MCV MCH MCHC RDW Plt Count Neut % (Auto) Lymph % (Auto) [place] % (Auto) Eos % (Auto) Baso % (Auto) Neut # (Auto) Lymph # (Auto) [place] # (Auto) Eos # (Auto) Baso # (Auto) PT INR Sodium Potassium Chloride Carbon Dioxide BUN Creatinine Estimated GFR BUN/Creatinine Ratio Glucose Lactate Uric Acid Calcium Magnesium 1.3 L Total Bilirubin GGT AST ALT Alkaline Phosphatase Troponin I 0.048 H NT-Pro-B Natriuret Pep Total Protein Albumin Globulin Albumin/Globulin Ratio Triglycerides Cholesterol LDL Cholesterol, Calc HDL Cholesterol Procalcitonin TSH 1.05 Urine Color Urine Appearance Urine pH Ur Specific [place] Urine Protein Urine Glucose (UA) Urine Ketones Urine Occult Blood Urine Nitrate Urine Bilirubin Urine Urobilinogen Ur Leukocyte Esterase Urine RBC Urine WBC Ur Transition Epith Cell Urine Bacteria Ur Culture Indicated? Ur Random Sodium Nasal Screen MRSA (PCR) Ethyl Alcohol < 10 SARS-CoV-2 (PCR) Influenza A (RT-PCR) Influenza B (RT-PCR) RSV (PCR) 08/12/22 08/12/22 08/12/22 22:46 22:46 23:40 WBC RBC Hgb Hct MCV MCH MCHC RDW Plt Count Neut % (Auto) Lymph % (Auto) [place] % (Auto) Eos % (Auto) Baso % (Auto) Neut # (Auto) Lymph # (Auto) [place] # (Auto) Eos # (Auto) Baso # (Auto) PT INR Sodium 107 L* Potassium 3.9 Chloride 67 L* Carbon Dioxide 30 BUN 11 Creatinine 0.58 L Estimated GFR > 60 BUN/Creatinine Ratio 19.0 Glucose 92 Lactate Uric Acid Calcium 8.6 Magnesium Total Bilirubin GGT AST ALT Alkaline Phosphatase Troponin I NT-Pro-B Natriuret Pep Total Protein Albumin Globulin Albumin/Globulin Ratio Triglycerides Cholesterol LDL Cholesterol, Calc HDL Cholesterol Procalcitonin TSH Urine Color Yellow Urine Appearance Clear Urine pH 7.0 Ur Specific [place] 1.015 Urine Protein Negative Urine Glucose (UA) Negative Urine Ketones Trace H Urine Occult Blood Trace-intact Urine Nitrate Negative Urine Bilirubin Negative Urine Urobilinogen 0.2 Ur Leukocyte Esterase Negative Urine RBC 0-1/hpf Urine WBC None seen Ur Transition Epith Cell 0-1/hpf Urine Bacteria None seen Ur Culture Indicated? Cult not indicated Ur Random Sodium 81 Nasal Screen MRSA (PCR) Ethyl Alcohol SARS-CoV-2 (PCR) Influenza A (RT-PCR) Influenza B (RT-PCR) RSV (PCR) 08/12/22 08/12/22 08/12/22 23:40 23:40 23:40 WBC RBC Hgb Hct MCV MCH MCHC RDW Plt Count Neut % (Auto) Lymph % (Auto) [place] % (Auto) Eos % (Auto) Baso % (Auto) Neut # (Auto) Lymph # (Auto) [place] # (Auto) Eos # (Auto) Baso # (Auto) PT INR Sodium Potassium Chloride Carbon Dioxide BUN Creatinine Estimated GFR BUN/Creatinine Ratio Glucose Lactate Uric Acid 2.2 L Calcium Magnesium Total Bilirubin GGT 85 H AST ALT Alkaline Phosphatase Troponin I NT-Pro-B Natriuret Pep 195 H Total Protein Albumin Globulin Albumin/Globulin Ratio Triglycerides Cholesterol LDL Cholesterol, Calc HDL Cholesterol Procalcitonin TSH Urine Color Urine Appearance Urine pH Ur Specific [place] Urine Protein Urine Glucose (UA) Urine Ketones Urine Occult Blood Urine Nitrate Urine Bilirubin Urine Urobilinogen Ur Leukocyte Esterase Urine RBC Urine WBC Ur Transition Epith Cell Urine Bacteria Ur Culture Indicated? Ur Random Sodium Nasal Screen MRSA (PCR) Ethyl Alcohol SARS-CoV-2 (PCR) Influenza A (RT-PCR) Influenza B (RT-PCR) RSV (PCR) 08/12/22 08/13/22 08/13/22 23:40 00:20 01:08 WBC RBC Hgb Hct MCV MCH MCHC RDW Plt Count Neut % (Auto) Lymph % (Auto) [place] % (Auto) Eos % (Auto) Baso % (Auto) Neut # (Auto) Lymph # (Auto) [place] # (Auto) Eos # (Auto) Baso # (Auto) PT INR Sodium Potassium Chloride Carbon Dioxide BUN Creatinine Estimated GFR BUN/Creatinine Ratio Glucose Lactate 0.7 Uric Acid Calcium Magnesium Total Bilirubin GGT AST ALT Alkaline Phosphatase Troponin I NT-Pro-B Natriuret Pep Total Protein Albumin Globulin Albumin/Globulin Ratio Triglycerides Cholesterol LDL Cholesterol, Calc HDL Cholesterol Procalcitonin TSH 1.31 Urine Color Urine Appearance Urine pH Ur Specific [place] Urine Protein Urine Glucose (UA) Urine Ketones Urine Occult Blood Urine Nitrate Urine Bilirubin Urine Urobilinogen Ur Leukocyte Esterase Urine RBC Urine WBC Ur Transition Epith Cell Urine Bacteria Ur Culture Indicated? Ur Random Sodium Nasal Screen MRSA (PCR) Negative for mrsa Ethyl Alcohol SARS-CoV-2 (PCR) Influenza A (RT-PCR) Influenza B (RT-PCR) RSV (PCR) 08/13/22 08/13/22 08/13/22 04:33 04:33 04:33 WBC 7.9 RBC 4.11 L Hgb 13.3 L Hct 38.4 L MCV 93.3 MCH 32.2 MCHC 34.5 RDW 14.2 Plt Count 134 L Neut % (Auto) 73.4 Lymph % (Auto) 14.1 L [place] % (Auto) 10.7 Eos % (Auto) 1.6 L Baso % (Auto) 0.2 Neut # (Auto) 5800 Lymph # (Auto) 1100 [place] # (Auto) 800 Eos # (Auto) 100 Baso # (Auto) 0 PT INR Sodium Cancelled 114 L* Potassium Cancelled 3.8 Chloride Cancelled 75 L* Carbon Dioxide Cancelled 32 BUN Cancelled 9 Creatinine Cancelled 0.50 L Estimated GFR Cancelled > 60 BUN/Creatinine Ratio Cancelled 18.0 Glucose Cancelled 75 L Lactate Uric Acid Calcium Cancelled 8.3 L Magnesium 1.3 L Total Bilirubin 1.4 H GGT AST 53 ALT 35 Alkaline Phosphatase 113 Troponin I NT-Pro-B Natriuret Pep Total Protein 6.6 Albumin 3.3 L Globulin 3.3 Albumin/Globulin Ratio 1.0 Triglycerides 50 Cholesterol 158 LDL Cholesterol, Calc 53 HDL Cholesterol 95 H Procalcitonin TSH Urine Color Urine Appearance Urine pH Ur Specific [place] Urine Protein Urine Glucose (UA) Urine Ketones Urine Occult Blood Urine Nitrate Urine Bilirubin Urine Urobilinogen Ur Leukocyte Esterase Urine RBC Urine WBC Ur Transition Epith Cell Urine Bacteria Ur Culture Indicated? Ur Random Sodium Nasal Screen MRSA (PCR) Ethyl Alcohol SARS-CoV-2 (PCR) Influenza A (RT-PCR) Influenza B (RT-PCR) RSV (PCR) 08/13/22 08/13/22 04:33 07:50 WBC RBC Hgb Hct MCV MCH MCHC RDW Plt Count Neut % (Auto) Lymph % (Auto) [place] % (Auto) Eos % (Auto) Baso % (Auto) Neut # (Auto) Lymph # (Auto) [place] # (Auto) Eos # (Auto) Baso # (Auto) PT INR Sodium 113 L* Potassium 3.7 Chloride 72 L* Carbon Dioxide 34 H BUN 11 Creatinine 0.62 L Estimated GFR > 60 BUN/Creatinine Ratio 17.7 Glucose 103 Lactate Uric Acid Calcium 8.7 Magnesium Total Bilirubin GGT AST ALT Alkaline Phosphatase Troponin I 0.046 H NT-Pro-B Natriuret Pep Total Protein Albumin Globulin Albumin/Globulin Ratio Triglycerides Cholesterol LDL Cholesterol, Calc HDL Cholesterol Procalcitonin TSH Urine Color Urine Appearance Urine pH Ur Specific [place] Urine Protein Urine Glucose (UA) Urine Ketones Urine Occult Blood Urine Nitrate Urine Bilirubin Urine Urobilinogen Ur Leukocyte Esterase Urine RBC Urine WBC Ur Transition Epith Cell Urine Bacteria Ur Culture Indicated? Ur Random Sodium Nasal Screen MRSA (PCR) Ethyl Alcohol SARS-CoV-2 (PCR) Influenza A (RT-PCR) Influenza B (RT-PCR) RSV (PCR) Exam Vital Signs (past 8 hours): - 08/13/22 03:00 08/13/22 03:00 08/13/22 04:00 Temperature Pulse Rate 86 Respiratory Rate 20 Blood Pressure 121/56 L 128/59 L Pulse Oximetry 92 Oxygen Delivery Method Oxygen Flow Rate 1 08/13/22 04:00 08/13/22 05:00 08/13/22 05:00 Temperature 97.7 F Pulse Rate 87 93 H Respiratory Rate 21 24 Blood Pressure 121/59 L Pulse Oximetry 92 92 Oxygen Delivery Method Oxygen Flow Rate 1 1 08/13/22 05:41 08/13/22 05:49 08/13/22 06:00 Temperature Pulse Rate Respiratory Rate Blood Pressure 110/52 L Pulse Oximetry 92 Oxygen Delivery Method Nasal Cannula Nasal Cannula Oxygen Flow Rate 1 08/13/22 06:00 08/13/22 07:00 08/13/22 07:00 Temperature Pulse Rate 92 H 84 Respiratory Rate 19 22 Blood Pressure 85/49 L Pulse Oximetry 93 93 Oxygen Delivery Method Oxygen Flow Rate 08/13/22 07:01 08/13/22 07:01 08/13/22 07:02 Temperature Pulse Rate 82 Respiratory Rate 17 Blood Pressure 79/43 L 92/52 L Pulse Oximetry 93 Oxygen Delivery Method Oxygen Flow Rate 08/13/22 07:02 Temperature Pulse Rate 84 Respiratory Rate 25 H Blood Pressure Pulse Oximetry 93 Oxygen Delivery Method Oxygen Flow Rate Oxygen Delivery Method Nasal Cannula Oxygen Flow Rate 1 Narrative Exam Narrative: Awake, alert, conversant. Appears somewhat confused. VS are WNL. On 3L NC. Mild tachypnea. Quality TeleICU VTE Deep Vein Thrombosis/Pulmonary Embolism Present on Admission: No Assessment & Plan Assessment & Plan narrative: NEURO: # Generalized weakness -- Secondary to severe hyponatermia -- Hyponatremia management as below -- Seek PT/OT and OOB as tolerated -- Fall precaution # Withdrawal -- Librium, CIWA RESP: # AECOPD -- No PFTs on file? -- On prednisone 40 mg X 5 days. Of note, patient states a history of severe delirium with steroids. If any delirium noted, would hold further steroid. -- Cont duoneb? CVS: # HTN -- Goal SBP < 140 -- Recommend adding norvasc 10 mg daily ; # Hyponatremia -- Goal Na is 114-115 at 23:00 tonight. Current level 113 -- Hold D5W, follow up repeat Na. -- Trend BMP every 4 hours. Monitor UOP -- If level again rises too quickly, would plan for DDAVP and additional D5W ENDO: -- Goal BS < 180 VTE PPx: Novenox Time Spent With Patient Critical Care time: I spent a total of [] minutes of critical care time on this patient's care today; this time is exclusive of procedural time.
[2022-08-13 11:03] LABS: Blood Urea Nitrogen 12 mg/dL (9-20); Calcium 8.8 mg/dL (8.4-10.2); Carbon Dioxide 33 mmol/L (22-32); Estimated Glomerular Filt Rate > 60 mL/min (>60); Glucose 114 mg/dL (80-110); HEMOLYSIS 18 (0-50); Potassium 3.9 mmol/L (3.4-5.1)
[2022-08-13 11:06] LABS: Sodium 114 mmol/L (137-145)
[2022-08-13 11:07] LABS: Chloride 73 mmol/L (98-107)
[2022-08-13 11:15] LABS: Troponin I 0.048 ng/mL (0.01-0.034)
[2022-08-13] MEDS: MAGNESIUM CHLORIDE 64 MG TABLET 128 MG PO (11:51)
[2022-08-13] MEDS: MORPHINE 2 MG/ML INJ IV (12:00)
--- NOTE | 2022-08-13 13:31 | RT ---
Saw pt and went over cardio/pilmonary rehab. pt is interested and will see if he can arrange someone to bring him to and from classes. i gave pt IS and showed him how to use it and how often he should use it. i also went over the pickle with him so he can use it during his neb treatments to help remove mucous. pt has very short memory so we will need to go over this with him several times.
[2022-08-13 15:07] LABS: BUN Creatinine Ratio 15.5 (6-22); Blood Urea Nitrogen 15 mg/dL (9-20); Calcium 8.7 mg/dL (8.4-10.2); Carbon Dioxide 34 mmol/L (22-32); Estimated Glomerular Filt Rate > 60 mL/min (>60); Glucose 190 mg/dL (80-110); HEMOLYSIS < 15 (0-50); Potassium 4.3 mmol/L (3.4-5.1)
[2022-08-13 15:10] LABS: Sodium 118 mmol/L (137-145)
[2022-08-13 15:11] LABS: Chloride 76 mmol/L (98-107)
[2022-08-13] MEDS: DESMOPRESSIN 4 MCG/ML AMPUL 1 MCG IV (15:59)
[2022-08-13 16:21] LABS: Blood Urea Nitrogen 16 mg/dL (9-20); Calcium 8.7 mg/dL (8.4-10.2); Carbon Dioxide 33 mmol/L (22-32); Chloride 77 mmol/L (98-107); Estimated Glomerular Filt Rate > 60 mL/min (>60); Glucose 130 mg/dL (80-110); HEMOLYSIS < 15 (0-50); Potassium 4.4 mmol/L (3.4-5.1)
[2022-08-13 16:23] LABS: Sodium 118 mmol/L (137-145)
[2022-08-13 20:30] LABS: BUN Creatinine Ratio 20.2 (6-22); Blood Urea Nitrogen 20 mg/dL (9-20); Calcium 8.3 mg/dL (8.4-10.2); Carbon Dioxide 35 mmol/L (22-32); Estimated Glomerular Filt Rate > 60 mL/min (>60); Glucose 156 mg/dL (80-110); HEMOLYSIS < 15 (0-50)
[2022-08-13 20:35] LABS: Chloride 76 mmol/L (98-107); Sodium 117 mmol/L (137-145)
--- NOTE | 2022-08-13 20:48 | PM.EICU.INT ---
Teleintensivist Intervention Date/Time Was camera activated?: Yes Date Patient Seen: 08/13/22 Issue(s) Addressed Issue(s): Abnormal labs Other:: pt seen evaluated with bedside nurse alert awake forgetful, follow commands last sodium 3 sodium checks 118, 117,117, pt on d5w at this time. if next sodium check is decreased. suggest to dc ivf and do fluid restriction. please call eICU if condition changes
[2022-08-14] VITALS (31 sets, daily range): BP systolic 86–134; BP diastolic 48–66; PULSE 76–102; RESP 9–26; TEMP 36.2–36.9; O2SAT 85–100
--- NOTE | 2022-08-14 00:12 | PC.NURSE ---
Addendum entered by Hazel Shipley R.N. 08/14/22 04:48: 0200- discussed with CARLO Scmhidt patients reaction to Prednisone. Medication stopped per order. Addendum entered by Hazel Shipley R.N. 08/14/22 01:35: 0100- Patient is increasingly more agitated and unable to relax. Fluid Restriction initiated per MD order and NS started at 50cc/hr based on the midnight lab draw. NA dropped to 113. Dr. Acharya notified. Will monitor. Original Note: 0000- Patient states he still has brain fog. He is having difficulty sleeping and feels it is due to the steroids. Patient states in the past steroids really made him very agitated and crazy. Will monitor.
[2022-08-14 00:25] LABS: BUN Creatinine Ratio 27.4 (6-22); Blood Urea Nitrogen 20 mg/dL (9-20); Calcium 8.3 mg/dL (8.4-10.2); Carbon Dioxide 33 mmol/L (22-32); Estimated Glomerular Filt Rate > 60 mL/min (>60); Glucose 119 mg/dL (80-110); HEMOLYSIS 28 (0-50); Potassium 4.1 mmol/L (3.4-5.1)
[2022-08-14 00:28] LABS: Chloride 75 mmol/L (98-107); Sodium 113 mmol/L (137-145)
[2022-08-14] MEDS: ALBUTEROL/IPRATROPIUM 3 ML AMPUL INH (00:54)
--- NOTE | 2022-08-14 00:54 | PM.EVENT ---
Event Note Event Note (Rapid Response, Code, or fall): Repeat Na 113 from 117. Restart NS at 50cc/hr and added fluid restriction <1 liter per day. Follow up next repeat BMP in 4 hours. D/w RN.
[2022-08-14] MEDS: SODIUM CHLORIDE 0.9% 1,000 ML 50 ML IV ×2 (01:07→18:17)
[2022-08-14 04:28] LABS: Add Manual Diff / Slide Review NO; Basophils Absolute Auto 0 /uL (0-100); Basophils Percent Auto 0.4 % (0-2); Eosinophils Absolute Auto 100 /uL (0-450); Eosinophils Percent Auto 0.8 % (2-4); Hematocrit 36.3 % (41-53); Hemoglobin 12.5 g/dL (13.5-17.5); Lymphocytes Absolute Auto 900 /uL (1100-4500); Lymphocytes Percent Auto 13.8 % (25-40); Mean Corpuscular HGB Conc 34.4 % (30-36); Mean Corpuscular Hemoglobin 32.4 PG (26-34); Mean Corpuscular Volume 94.2 fL (80-100); Monocytes Absolute Auto 800 /uL (0-900); Monocytes Percent Auto 11.7 % (3-14); Neutrophils Absolute Auto 5000 /uL (1500-7000); Neutrophils Percent Auto 73.3 % (50-75); Platelet Count 114 X10^3/uL (150-400); Red Blood Cell Count 3.85 X10^6/uL (4.5-5.9); Red Cell Distribution Width 14.2 % (11.6-14.8); White Blood Cell Count 6.8 X10^3/uL (4.5-11.0)
[2022-08-14 04:37] LABS: Alanine Aminotransferase 34 IU/L (<50); Albumin 3.3 g/dL (3.5-5.0); Alkaline Phosphatase 108 U/L (38-126); Aspartate Aminotransferase 43 IU/L (17-59); BUN Creatinine Ratio 24.6 (6-22); Bilirubin Total 0.8 mg/dL (0.2-1.3); Blood Urea Nitrogen 16 mg/dL (9-20); Calcium 8.2 mg/dL (8.4-10.2); Carbon Dioxide 35 mmol/L (22-32); Estimated Glomerular Filt Rate > 60 mL/min (>60); Globulin 3.3 g/dL (1.7-4.1); Glucose 94 mg/dL (80-110); HEMOLYSIS < 15 (0-50); Magnesium 1.8 mg/dL (1.6-2.3); Potassium 3.5 mmol/L (3.4-5.1); Total Protein 6.6 g/dL (6.3-8.2)
[2022-08-14 04:44] LABS: Chloride 75 mmol/L (98-107); Sodium 114 mmol/L (137-145)
[2022-08-14] MEDS: chlordiazePOXIDE 25 MG CAPSULE PO ×2 (07:44→20:26)
[2022-08-14] MEDS: ASPIRIN EC 81 MG TABLET PO (08:30)
[2022-08-14] MEDS: NICOTINE 14 PATCH 14 MG TOP (08:30)
[2022-08-14] MEDS: ENOXAPARIN 40 MG/0.4 ML SYRINGE SUBCUT (08:31)
[2022-08-14] MEDS: LIDOCAINE PATCH 1 EACH ADH..PATCH TOP (08:31)
[2022-08-14] MEDS: OXYCODONE IR 5 MG TABLET PO ×2 (10:27→17:24)
[2022-08-14] MEDS: ACETAMINOPHEN 325 MG TABLET 650 MG PO ×2 (10:27→17:25)
--- NOTE | 2022-08-14 10:30 | PM.PN.1 ---
Subjective Subjective Interval history: 71-year-old gentleman with COPD, hypertension, gout, chronic low back pain, alcohol dependence, tobacco dependence admitted with severe acute hyponatremia, hypomagnesemia, COPD exacerbation, and myocardial injury. On admission his sodium was 107 on the evening of August 12. He had rapid correction up to 118 yesterday afternoon at 2:48 p.m.. Patient received DDAVP as well as D5 yesterday. Sodium did come back down to 113 early this morning. Subsequently at 114 this morning at 3:47 a.m.. Current lab is pending. Patient states he continues to feel ?fuzzy brained?. He notes he had fallen 5 days layer felt his chronic back pain was a bit worse than baseline. He notes poor appetite. No nausea. He also states he has not had a bowel movement in 3 days. Did receive prednisone yesterday for COPD exacerbation but did not tolerate it. He asked what other options he has for outpatient treatment of his COPD. Exam Vital Signs (past 8 hours): - 08/14/22 03:00 08/14/22 03:00 08/14/22 04:00 Temperature Pulse Rate 85 Respiratory Rate 12 Blood Pressure 113/59 L 108/56 L Pulse Oximetry 96 Oxygen Delivery Method Oxygen Flow Rate 1 08/14/22 04:00 08/14/22 05:00 08/14/22 05:00 Temperature 98.5 F Pulse Rate 79 76 Respiratory Rate 11 L 13 Blood Pressure 119/61 Pulse Oximetry 100 98 Oxygen Delivery Method Oxygen Flow Rate 1 1 08/14/22 05:00 08/14/22 07:00 08/14/22 07:00 Temperature Pulse Rate 76 Respiratory Rate 9 L Blood Pressure 114/57 L Pulse Oximetry 99 Oxygen Delivery Method Nasal Cannula Oxygen Flow Rate 08/14/22 08:00 08/14/22 08:00 08/14/22 08:55 Temperature Pulse Rate 77 Respiratory Rate 18 Blood Pressure 120/60 Pulse Oximetry 94 Oxygen Delivery Method Nasal Cannula Oxygen Flow Rate 08/14/22 09:00 08/14/22 09:00 08/14/22 09:27 Temperature 97.1 F L Pulse Rate 102 H Respiratory Rate 23 Blood Pressure 114/58 L Pulse Oximetry 89 L Oxygen Delivery Method Oxygen Flow Rate Oxygen Delivery Method Nasal Cannula Oxygen Flow Rate 1 Narrative Exam Narrative: GEN: Somewhat disheveled middle-aged male, Alert and oriented x 3, NAD HEENT:NC, Face symmetric CHEST: Respiratory excursions symmetric, diffuse expiratory wheezes, diffusely diminished CV: RRR, no M/R/G ABD: Soft, NT/ND, BT present in all 4 quadrants, no organomegaly or masses EXTR: warm, well perfused, no C/C/E SKIN: warm and dry, no rash NEURO: Alert and oriented x 3, nonfocal Objective Labs 08/14/22 03:47 08/14/22 03:47 Labs: Laboratory Results - last 24 hr 08/13/22 08/13/22 08/13/22 10:40 10:40 14:48 WBC RBC Hgb Hct MCV MCH MCHC RDW Plt Count Neut % (Auto) Lymph % (Auto) [place] % (Auto) Eos % (Auto) Baso % (Auto) Neut # (Auto) Lymph # (Auto) [place] # (Auto) Eos # (Auto) Baso # (Auto) Sodium 114 L* 118 L* Potassium 3.9 4.3 Chloride 73 L* 76 L* Carbon Dioxide 33 H 34 H BUN 12 15 Creatinine 0.63 L 0.97 Estimated GFR > 60 > 60 BUN/Creatinine Ratio 19.0 15.5 Glucose 114 H 190 H Calcium 8.8 8.7 Magnesium Total Bilirubin AST ALT Alkaline Phosphatase Troponin I 0.048 H Total Protein Albumin Globulin Albumin/Globulin Ratio 08/13/22 08/13/22 08/14/22 15:58 20:14 00:05 WBC RBC Hgb Hct MCV MCH MCHC RDW Plt Count Neut % (Auto) Lymph % (Auto) [place] % (Auto) Eos % (Auto) Baso % (Auto) Neut # (Auto) Lymph # (Auto) [place] # (Auto) Eos # (Auto) Baso # (Auto) Sodium 118 L* 117 L* 113 L* Potassium 4.4 4.0 4.1 Chloride 77 L 76 L* 75 L* Carbon Dioxide 33 H 35 H 33 H BUN 16 20 20 Creatinine 0.94 0.99 0.73 Estimated GFR > 60 > 60 > 60 BUN/Creatinine Ratio 17.0 20.2 27.4 H Glucose 130 H 156 H 119 H Calcium 8.7 8.3 L 8.3 L Magnesium Total Bilirubin AST ALT Alkaline Phosphatase Troponin I Total Protein Albumin Globulin Albumin/Globulin Ratio 08/14/22 08/14/22 03:47 03:47 WBC 6.8 RBC 3.85 L Hgb 12.5 L Hct 36.3 L MCV 94.2 MCH 32.4 MCHC 34.4 RDW 14.2 Plt Count 114 L Neut % (Auto) 73.3 Lymph % (Auto) 13.8 L [place] % (Auto) 11.7 Eos % (Auto) 0.8 L Baso % (Auto) 0.4 Neut # (Auto) 5000 Lymph # (Auto) 900 L [place] # (Auto) 800 Eos # (Auto) 100 Baso # (Auto) 0 Sodium 114 L* Potassium 3.5 Chloride 75 L* Carbon Dioxide 35 H BUN 16 Creatinine 0.65 L Estimated GFR > 60 BUN/Creatinine Ratio 24.6 H Glucose 94 Calcium 8.2 L Magnesium 1.8 Total Bilirubin 0.8 AST 43 ALT 34 Alkaline Phosphatase 108 Troponin I Total Protein 6.6 Albumin 3.3 L Globulin 3.3 Albumin/Globulin Ratio 1.0 [facility] Medical History (Updated 08/13/22 @ 05:41 by KATHY Salguero) Alcohol abuse Continuous tobacco abuse Emphysema lung Essential hypertension Surgical History (Updated 08/13/22 @ 05:41 by KATHY Salguero) History of hernia repair Family History Father Cancer Mother Emphysema of lung Social History household members: none Smoking Status: Current every day smoker alcohol intake: current Assessment & Plan Assessment & Plan narrative: 1. Hyponatremia Sodium was 107 on August 12 at 8:20 p.m.. Up to 114 on August 13 at 4:33 a.m.. Increase to 118 on August 13 at 2:48 p.m.. Subsequently down to 113 after DDAVP and D5. Await this morning's labs. Goal of a maximum sodium of 119/120 tonight. Continue fluid restriction and normal saline at 50 cc/hour. 2. COPD exacerbation Will place on Perforomist and budesonide nebulizers. He does report using Advair on an outpatient basis. He is curious about alternatives to prednisone. We discussed Kenalog which I would be reluctant to use as it can last up to a month. We also discussed using Pulmicort via nebulizer during exacerbations. Per recommendations by Dr. Brito, will add azithromycin as well. He remains on oxygen at 3 liters/minute. He reports he does not use oxygen at baseline. 3. Acute hypoxic respiratory failure Present requiring 3 L of oxygen to maintain saturations in the low 90s. Will wean as able. Etiology is COPD exacerbation 4. Possible NSTEMI versus demand ischemia Continue aspirin therapy. Echocardiogram was performed but results are pending. Lipids are within normal limits with the exception of HDL which was high at 95. 5. Alcohol dependence Patient has been on Librium 25 mg Q 8 hours. CIWA scores are 0-1. Will wean to b.i.d. dosing today and discontinue it tomorrow. Will add a multivitamin and thiamine 6. Tobacco dependence Recommend cessation. Nicotine patch in place. 7. Acute on chronic mild malnutrition He does admit to poor appetite. Will monitor nutritional intake. 8. Hypertension Blood pressures are normotensive currently. 9. Mild normocytic anemia Hemoglobin is 12.5. No evidence of bleeding. Will monitor. 10. Thrombocytopenia Likely alcohol related. Platelets were 166 on admission, down to 114. Should they continued to drop, may consider an HIT antibody as he is receiving Lovenox. 11. Acute on chronic back pain Continue oxycodone as needed. Work towards mobilization. 12. Constipation Reports he has not had a bowel movement in 3 days. Will add senna. Code status Full per orders but DNR per documentation. Will clarify with patient. Prophylaxis On Lovenox Disposition Pending Time Spent With Patient Critical Care time: I spent a total of [] minutes of critical care time on this patient's care today; this time is exclusive of procedural time. Quality VTE Deep Vein Thrombosis/Pulmonary Embolism Present on Admission: No
[2022-08-14 10:49] LABS: Osmolality Urine 479 mOsmol/kg (.); Osmolality, Serum 226 mOsmol/kg (280-301)
--- NOTE | 2022-08-14 10:49 | PM.PN.EICU ---
Subjective Subjective IF CAMERA ACTIVATED, patient seen via real-time interactive audiovisual communication: Camera activated Consent obtained for tele-railroad inspector care: Yes Patient Location: ICU Provider location (State): [place] Other participants/roles: RN Subjective Interval history: Confused. Na alex to 118, back down to 114. Now on NS @ 50/hour Current Medications Current Medications Medications: Home Medications allopurinol 300 mg tablet 300 mg PO DAILY 08/13/22 [History Confirmed 08/13/22] fluticasone 500 mcg-salmeterol 50 mcg/dose blistr powdr for inhalation (Advair Diskus) 1 inh inhalation BID 08/13/22 [History Confirmed 08/13/22] indapamide 1.25 mg tablet 1.25 mg PO QAM 08/13/22 [History Confirmed 08/13/22] Visit Medications (administered) Generic Name Dose Route Start Last Admin Trade Name Freq PRN Reason Stop Dose Admin Acetaminophen 650 mg 08/12/22 23:07 08/14/22 10:27 Acetaminophen 325 Mg Tablet PO 650 mg Q6H PRN Administration Fever/Mild Pain (1-3) Albuterol/Ipratropium 3 ml 08/12/22 22:59 08/14/22 00:54 Albuterol/Ipratropium 3 Ml Ampul INH 3 ml RTQ4HR PRN Administration Shortness Of Breath Or Wheezing Aspirin 81 mg 08/13/22 09:00 08/14/22 08:30 Aspirin Ec 81 Mg Tablet PO 81 mg DAILY AMY Administration Enoxaparin Sodium 40 mg 08/13/22 09:00 08/14/22 08:31 Enoxaparin 40 Mg/0.4 Ml Syringe SUBCUT 40 mg DAILY AMY Administration Dextrose 1,000 mls @ 150 mls/hr 08/13/22 06:00 08/13/22 18:15 Dextrose 5% Water IV 150 mls/hr CONT AMY Administration Sodium Chloride 1,000 mls @ 50 mls/hr 08/14/22 01:00 08/14/22 01:07 Normal Saline 0.9% IV 50 mls/hr CONT AMY Administration Lidocaine 1 each 08/13/22 09:00 08/14/22 08:31 Lidocaine Patch 1 Each Adh..Patch TOP 1 each DAILY AMY Administration Morphine Sulfate 2 mg 08/12/22 23:14 08/13/22 12:00 Morphine 2 Mg/Ml Inj IV 2 mg Q5MIN PRN Administration Chest Pain Nicotine 14 mg 08/13/22 09:00 08/14/22 08:30 Nicotine 14 Patch TOP 14 mg DAILY AMY Administration Oxycodone HCl 5 mg 08/13/22 00:41 08/14/22 10:27 Oxycodone Ir 5 Mg Tablet PO 5 mg Q6HR PRN Administration Pain, Moderate (4-6) Objective Labs 08/14/22 03:47 08/14/22 03:47 Labs: Laboratory Results - last 24 hr 08/13/22 08/13/22 08/13/22 10:40 10:40 14:48 WBC RBC Hgb Hct MCV MCH MCHC RDW Plt Count Neut % (Auto) Lymph % (Auto) [place] % (Auto) Eos % (Auto) Baso % (Auto) Neut # (Auto) Lymph # (Auto) [place] # (Auto) Eos # (Auto) Baso # (Auto) Sodium 114 L* 118 L* Potassium 3.9 4.3 Chloride 73 L* 76 L* Carbon Dioxide 33 H 34 H BUN 12 15 Creatinine 0.63 L 0.97 Estimated GFR > 60 > 60 BUN/Creatinine Ratio 19.0 15.5 Glucose 114 H 190 H Calcium 8.8 8.7 Magnesium Total Bilirubin AST ALT Alkaline Phosphatase Troponin I 0.048 H Total Protein Albumin Globulin Albumin/Globulin Ratio 08/13/22 08/13/22 08/14/22 15:58 20:14 00:05 WBC RBC Hgb Hct MCV MCH MCHC RDW Plt Count Neut % (Auto) Lymph % (Auto) [place] % (Auto) Eos % (Auto) Baso % (Auto) Neut # (Auto) Lymph # (Auto) [place] # (Auto) Eos # (Auto) Baso # (Auto) Sodium 118 L* 117 L* 113 L* Potassium 4.4 4.0 4.1 Chloride 77 L 76 L* 75 L* Carbon Dioxide 33 H 35 H 33 H BUN 16 20 20 Creatinine 0.94 0.99 0.73 Estimated GFR > 60 > 60 > 60 BUN/Creatinine Ratio 17.0 20.2 27.4 H Glucose 130 H 156 H 119 H Calcium 8.7 8.3 L 8.3 L Magnesium Total Bilirubin AST ALT Alkaline Phosphatase Troponin I Total Protein Albumin Globulin Albumin/Globulin Ratio 08/14/22 08/14/22 03:47 03:47 WBC 6.8 RBC 3.85 L Hgb 12.5 L Hct 36.3 L MCV 94.2 MCH 32.4 MCHC 34.4 RDW 14.2 Plt Count 114 L Neut % (Auto) 73.3 Lymph % (Auto) 13.8 L [place] % (Auto) 11.7 Eos % (Auto) 0.8 L Baso % (Auto) 0.4 Neut # (Auto) 5000 Lymph # (Auto) 900 L [place] # (Auto) 800 Eos # (Auto) 100 Baso # (Auto) 0 Sodium 114 L* Potassium 3.5 Chloride 75 L* Carbon Dioxide 35 H BUN 16 Creatinine 0.65 L Estimated GFR > 60 BUN/Creatinine Ratio 24.6 H Glucose 94 Calcium 8.2 L Magnesium 1.8 Total Bilirubin 0.8 AST 43 ALT 34 Alkaline Phosphatase 108 Troponin I Total Protein 6.6 Albumin 3.3 L Globulin 3.3 Albumin/Globulin Ratio 1.0 Exam Vital Signs (past 8 hours): - 08/14/22 03:00 08/14/22 03:00 08/14/22 04:00 Temperature Pulse Rate 85 Respiratory Rate 12 Blood Pressure 113/59 L 108/56 L Pulse Oximetry 96 Oxygen Delivery Method Oxygen Flow Rate 1 08/14/22 04:00 08/14/22 05:00 08/14/22 05:00 Temperature 98.5 F Pulse Rate 79 76 Respiratory Rate 11 L 13 Blood Pressure 119/61 Pulse Oximetry 100 98 Oxygen Delivery Method Oxygen Flow Rate 1 1 08/14/22 05:00 08/14/22 07:00 08/14/22 07:00 Temperature Pulse Rate 76 Respiratory Rate 9 L Blood Pressure 114/57 L Pulse Oximetry 99 Oxygen Delivery Method Nasal Cannula Oxygen Flow Rate 08/14/22 08:00 08/14/22 08:00 08/14/22 08:55 Temperature Pulse Rate 77 Respiratory Rate 18 Blood Pressure 120/60 Pulse Oximetry 94 Oxygen Delivery Method Nasal Cannula Oxygen Flow Rate 08/14/22 09:00 08/14/22 09:00 08/14/22 09:27 Temperature 97.1 F L Pulse Rate 102 H Respiratory Rate 23 Blood Pressure 114/58 L Pulse Oximetry 89 L Oxygen Delivery Method Oxygen Flow Rate Oxygen Delivery Method Nasal Cannula Oxygen Flow Rate 1 Narrative Exam Narrative: Awake, alert. HDS. On 3L NC. Continues to be slightly confused. Quality TeleICU VTE Deep Vein Thrombosis/Pulmonary Embolism Present on Admission: No Assessment & Plan Assessment & Plan narrative: 71M admit with COPD exacerbation and hyponatremia NEURO: # Generalized weakness -- Secondary to severe hyponatermia -- Hyponatremia management as below -- Seek PT/OT and OOB as tolerated -- Fall precaution # Withdrawal -- Librium - wean, CIWA RESP: # AECOPD -- No PFTs on file? -- Would start Azithromycin/Levoquin -- Cont duoneb? CVS: # HTN -- Goal SBP < 140 -- Recommend adding norvasc 10 mg daily ; # Hyponatremia -- Goal Na is 120-122 tonight -- Currently on NS @ 50/hour -- Trend BMP every 4 hours. Monitor UOP -- If level again rises too quickly, would plan for DDAVP and additional D5W ENDO: -- Goal BS < 180 VTE PPx: Lovenox Time Spent With Patient Critical Care time: I spent a total of [] minutes of critical care time on this patient's care today; this time is exclusive of procedural time.
[2022-08-14] MEDS: THIAMINE 100 MG TABLET PO (11:05)
[2022-08-14] MEDS: AZITHROMYCIN 250 MG TABLET 500 MG PO (11:06)
[2022-08-14] MEDS: MULTIVITAMIN 1 TABLET 1 TAB PO (11:06)
[2022-08-14] MEDS: POTASSIUM CHLORIDE 20 MEQ TAB 40 MEQ PO (11:06)
[2022-08-14 12:52] LABS: BUN Creatinine Ratio 26.3 (6-22); Blood Urea Nitrogen 15 mg/dL (9-20); Calcium 8.3 mg/dL (8.4-10.2); Carbon Dioxide 35 mmol/L (22-32); Chloride 77 mmol/L (98-107); Estimated Glomerular Filt Rate > 60 mL/min (>60); Glucose 116 mg/dL (80-110); HEMOLYSIS < 15 (0-50)
[2022-08-14 12:56] LABS: Sodium 115 mmol/L (137-145)
[2022-08-14] MEDS: FOLIC ACID 1 MG TABLET PO (14:36)
--- NOTE | 2022-08-14 14:41 | DIET.CONS ---
Dietary Consultation Note Admission Date: 08/12/2022 22:28 Assessment: 71 y/o M admited with sepesis, COPD exacerbation, hyponatremia, hypomagnesium, and MS/NSTEMI. Per staff notes ETOH intake 2-3 x 6 packs beer and 3-4 glasses of whiskey. In this visit, his niece present, he reports 3-4 beers per day. BMI low for age at 21.8 (moderate malnutrition) Diet recall: B: 2 hard boiled eggs L: hamburger D; nothing or salami and cheese Predicted <75% PO for REE (moderate malnutrition) Overall reports low appetite over the last 2 years, unclear etiology. He and family have noticed significant weight loss over 1.5 years of about 14.4kg or 18%. States his last PCP visit wt was 65.9kg (insignificant change). States he has also been eating less due to kitchen staff changes at the facility where he lives resulting in lower quality of food options. Additionally, will skip dinner to have more of an intoxicated effect of ETOH reportedly. Nutrition focused physical exam indicates moderate to severe wasting of temples, clavicle, boxed shoulders, and depressed interosseous muscle. (severe) Pt currently on Fluid restriction due to continued low Na lab values. Ht: 172.72 cm Wt: 65.1 kg BMI: 21.8 Last BM: 08/12/22 (08/13/22 01:46) MNA: 9 Sloan Score: 20 Diet: 08/12/22 Breakfast Low Sodium Diet (2gm) Diet Modifications: 1 liter fluid restriction Nutrition Percent Meal Consumed 75% 08/14/22 10:30 Percent Meal Consumed 100% 08/13/22 18:10 Percent Meal Consumed 100% 08/13/22 09:25 Labs: RBC 3.85 X10^6/uL (4.5-5.9) L 08/14/22 03:47 Hgb 12.5 g/dL (13.5-17.5) L 08/14/22 03:47 Hct 36.3 % (41-53) L 08/14/22 03:47 Creatinine 0.57 mg/dL (0.66-1.25) L 08/14/22 12:25 Lactate 0.7 mmol/L (0.7-2.1) 08/13/22 01:08 NT-Pro-B Natriuret Pep 195 pg/mL (<125) H 08/12/22 23:40 Nutrition Diagnosis: Chronic moderate protein calorie malnutrition r/t inadequate PO due to dislike of facility foods, prioritizing ETOH, reported loss of appetite aeb physical signs of wasting per nutrition focused physical exam, low for age BMI <23, predicted <75% REE intake over more than 7-9 days. -The patient is at much higher risk for medical and surgical complications because of his malnutrition.? This increases the difficulty and complexity of medical and surgical interventions and increases the chances of poor outcomes such as morbidity and mortality. Interventions: Pt has fluid restriction. Offered to send ONS or other pro food options. He elected to choose higher kcal ONS, will trial. 1. Sending high kcal ONS 2. MNT education about ETOH impact on nutrition status and prioritizing food EER: 1950kcals (30kcals/kg per BMI) 97g PRO (1.5g/kg per malnutrition) Monitoring/Evaluations: ONS tolerance, weight, PO, RD f/u 3 days Electronically Signed by: Mily Kaplan 08/14/22 14:41 Clinical Dietitian [address] [address]
[2022-08-14 16:58] LABS: BUN Creatinine Ratio 27.4 (6-22); Blood Urea Nitrogen 20 mg/dL (9-20); Calcium 8.6 mg/dL (8.4-10.2); Carbon Dioxide 35 mmol/L (22-32); Chloride 79 mmol/L (98-107); Estimated Glomerular Filt Rate > 60 mL/min (>60); Glucose 95 mg/dL (80-110); HEMOLYSIS < 15 (0-50); Potassium 4.5 mmol/L (3.4-5.1)
[2022-08-14 17:06] LABS: Sodium 118 mmol/L (137-145)
--- NOTE | 2022-08-14 20:13 | PM.ICURNDS ---
- Date Patient Seen: 08/14/22 Time Patient Seen: 20:21 :: This patient was seen via real time interactive two-way audiovisual telecommunication. Note: Na is currently 118 from 115 on NS 50cc/hr. Cont trending BMP every 4 hours. Goal Na 122 by midnight. D/w RN at bedside.
[2022-08-14] MEDS: SENNOSIDES 8.6 MG TABLET PO (20:26)
[2022-08-14 20:46] LABS: BUN Creatinine Ratio 27.8 (6-22); Blood Urea Nitrogen 22 mg/dL (9-20); Calcium 8.5 mg/dL (8.4-10.2); Carbon Dioxide 34 mmol/L (22-32); Chloride 81 mmol/L (98-107); Estimated Glomerular Filt Rate > 60 mL/min (>60); Glucose 106 mg/dL (80-110); HEMOLYSIS 19 (0-50); Potassium 4.3 mmol/L (3.4-5.1); Sodium 121 mmol/L (137-145)
--- NOTE | 2022-08-14 20:57 | PM.EVENT ---
Event Note Date Patient Seen: 08/14/22 Event Note (Rapid Response, Code, or fall): Repeat Na 121 from 118. Will stop NS infusion and continue fluid restriction. Pending repeat BMP in 4 hours. D/w RN at bedside.
--- NOTE | 2022-08-14 21:20 | PC.NURSE ---
Called Dr. Slaughter and informed him of pts. latest Na+ level of 121, order received to put on NS on hold at this time and wait for the next draw result and inform Dr. Lopes and go from there.
[2022-08-15] VITALS (84 sets, daily range): BP systolic 68–155; BP diastolic 37–69; PULSE 77–109; RESP 12–54; TEMP 32–37.1; O2SAT 89–98; BMI 20.5
[2022-08-15 01:19] LABS: Blood Urea Nitrogen 21 mg/dL (9-20); Calcium 8.6 mg/dL (8.4-10.2); Carbon Dioxide 38 mmol/L (22-32); Chloride 81 mmol/L (98-107); Estimated Glomerular Filt Rate > 60 mL/min (>60); Glucose 96 mg/dL (80-110); HEMOLYSIS 29 (0-50); Potassium 4.6 mmol/L (3.4-5.1); Sodium 122 mmol/L (137-145)
--- NOTE | 2022-08-15 01:55 | PC.NURSE ---
Addendum entered by Lisa Jon R.N. 08/15/22 05:56: Dr. Haskins informed of pt's Na-121 this am, order is to continue holding NS IVF and continue to monitor. Original Note: DR. Lopes informed of pt's current Na+ level of 122, order to continue holding NS IVF and wait for next lab draw in am.
[2022-08-15 05:12] LABS: Add Manual Diff / Slide Review NO; Basophils Absolute Auto 0 /uL (0-100); Basophils Percent Auto 0.3 % (0-2); Eosinophils Absolute Auto 200 /uL (0-450); Eosinophils Percent Auto 1.9 % (2-4); Hematocrit 37.7 % (41-53); Hemoglobin 12.8 g/dL (13.5-17.5); Lymphocytes Absolute Auto 900 /uL (1100-4500); Lymphocytes Percent Auto 11.1 % (25-40); Mean Corpuscular HGB Conc 33.8 % (30-36); Mean Corpuscular Hemoglobin 32.3 PG (26-34); Mean Corpuscular Volume 95.5 fL (80-100); Monocytes Absolute Auto 900 /uL (0-900); Monocytes Percent Auto 10.3 % (3-14); Neutrophils Absolute Auto 6500 /uL (1500-7000); Neutrophils Percent Auto 76.4 % (50-75); Platelet Count 114 X10^3/uL (150-400); Red Blood Cell Count 3.95 X10^6/uL (4.5-5.9); Red Cell Distribution Width 14.7 % (11.6-14.8); White Blood Cell Count 8.5 X10^3/uL (4.5-11.0)
[2022-08-15 05:20] LABS: Alanine Aminotransferase 39 IU/L (<50); Albumin 3.3 g/dL (3.5-5.0); Alkaline Phosphatase 121 U/L (38-126); Aspartate Aminotransferase 40 IU/L (17-59); BUN Creatinine Ratio 28.6 (6-22); Bilirubin Total 0.6 mg/dL (0.2-1.3); Blood Urea Nitrogen 18 mg/dL (9-20); Calcium 8.5 mg/dL (8.4-10.2); Carbon Dioxide 36 mmol/L (22-32); Chloride 82 mmol/L (98-107); Estimated Glomerular Filt Rate > 60 mL/min (>60); Globulin 3.2 g/dL (1.7-4.1); Glucose 95 mg/dL (80-110); HEMOLYSIS < 15 (0-50); Magnesium 1.7 mg/dL (1.6-2.3); Potassium 4.5 mmol/L (3.4-5.1); Sodium 121 mmol/L (137-145); Total Protein 6.5 g/dL (6.3-8.2)
[2022-08-15] MEDS: chlordiazePOXIDE 25 MG CAPSULE PO (07:55)
[2022-08-15] MEDS: ASPIRIN EC 81 MG TABLET PO (07:56)
[2022-08-15] MEDS: FOLIC ACID 1 MG TABLET PO (08:04)
[2022-08-15] MEDS: MULTIVITAMIN 1 TABLET 1 TAB PO (08:04)
[2022-08-15] MEDS: AZITHROMYCIN 250 MG TABLET 500 MG PO (08:06)
[2022-08-15] MEDS: ENOXAPARIN 40 MG/0.4 ML SYRINGE SUBCUT (08:06)
[2022-08-15] MEDS: LIDOCAINE PATCH 1 EACH ADH..PATCH TOP (08:06)
[2022-08-15] MEDS: NICOTINE 14 PATCH 14 MG TOP (08:07)
[2022-08-15] MEDS: THIAMINE 100 MG TABLET PO (08:07)
--- NOTE | 2022-08-15 09:24 | PM.PN.EICU ---
Subjective Subjective IF CAMERA ACTIVATED, patient seen via real-time interactive audiovisual communication: Camera activated Consent obtained for tele-insurance claims analyst care: Yes Patient Location: ICU Provider location (State): Other participants/roles: RN Interval history: Pt comfortable on 3 L NC Current Medications Current Medications Medications: Home Medications allopurinol 300 mg tablet 300 mg PO DAILY 08/13/22 [History Confirmed 08/13/22] fluticasone 500 mcg-salmeterol 50 mcg/dose blistr powdr for inhalation (Advair Diskus) 1 inh inhalation BID 08/13/22 [History Confirmed 08/13/22] indapamide 1.25 mg tablet 1.25 mg PO QAM 08/13/22 [History Confirmed 08/13/22] Visit Medications (administered) Generic Name Dose Route Start Last Admin Trade Name Freq PRN Reason Stop Dose Admin Acetaminophen 650 mg 08/12/22 23:07 08/14/22 17:25 Acetaminophen 325 Mg Tablet PO 650 mg Q6H PRN Administration Fever/Mild Pain (1-3) Albuterol/Ipratropium 3 ml 08/12/22 22:59 08/14/22 00:54 Albuterol/Ipratropium 3 Ml Ampul INH 3 ml RTQ4HR PRN Administration Shortness Of Breath Or Wheezing Aspirin 81 mg 08/13/22 09:00 08/15/22 07:56 Aspirin Ec 81 Mg Tablet PO 81 mg DAILY AMY Administration Azithromycin 500 mg 08/14/22 11:00 08/15/22 08:06 Azithromycin 250 Mg Tablet PO 08/16/22 09:01 500 mg DAILY AMY Administration Chlordiazepoxide HCl 25 mg 08/14/22 20:00 08/15/22 07:55 Chlordiazepoxide 25 Mg Capsule PO 25 mg Q12H AMY Administration Enoxaparin Sodium 40 mg 08/13/22 09:00 08/15/22 08:06 Enoxaparin 40 Mg/0.4 Ml Syringe SUBCUT 40 mg DAILY AMY Administration Folic Acid 1 mg 08/14/22 13:45 08/15/22 08:04 Folic Acid 1 Mg Tablet PO 1 mg DAILY AMY Administration Dextrose 1,000 mls @ 150 mls/hr 08/13/22 06:00 08/14/22 19:37 Dextrose 5% Water IV Infused CONT AMY Infusion Sodium Chloride 1,000 mls @ 50 mls/hr 08/14/22 01:00 08/14/22 20:59 Normal Saline 0.9% IV 0 mls/hr CONT AMY Infusion Lidocaine 1 each 08/13/22 09:00 08/15/22 08:06 Lidocaine Patch 1 Each Adh..Patch TOP 1 each DAILY AMY Administration Lidocaine 1 each 08/14/22 21:00 08/14/22 20:26 Remove Lidocaine Patch TOP 1 each BEDTIME AMY Administration Morphine Sulfate 2 mg 08/12/22 23:14 08/13/22 12:00 Morphine 2 Mg/Ml Inj IV 2 mg Q5MIN PRN Administration Chest Pain Multivitamins 1 tab 08/14/22 10:45 08/15/22 08:04 Multivitamin 1 Tablet PO 1 tab DAILY AMY Administration Nicotine 14 mg 08/13/22 09:00 08/15/22 08:07 Nicotine 14 Patch TOP 14 mg DAILY AMY Administration Oxycodone HCl 5 mg 08/13/22 00:41 08/14/22 17:24 Oxycodone Ir 5 Mg Tablet PO 5 mg Q6HR PRN Administration Pain, Moderate (4-6) Sennosides 8.6 mg 08/14/22 21:00 08/14/22 20:26 Sennosides 8.6 Mg Tablet PO 8.6 mg BEDTIME AMY Administration Thiamine HCl 100 mg 08/14/22 10:45 08/15/22 08:07 Thiamine 100 Mg Tablet PO 100 mg DAILY AMY Administration Objective Labs 08/15/22 03:57 08/15/22 03:57 Labs: Laboratory Results - last 24 hr 08/12/22 08/12/22 08/14/22 22:46 22:46 12:25 WBC RBC Hgb Hct MCV MCH MCHC RDW Plt Count Neut % (Auto) Lymph % (Auto) [place] % (Auto) Eos % (Auto) Baso % (Auto) Neut # (Auto) Lymph # (Auto) [place] # (Auto) Eos # (Auto) Baso # (Auto) Sodium 115 L* Potassium 4.0 Chloride 77 L Carbon Dioxide 35 H BUN 15 Creatinine 0.57 L Estimated GFR > 60 BUN/Creatinine Ratio 26.3 H Glucose 116 H Serum Osmolality 226 L Calcium 8.3 L Magnesium Total Bilirubin AST ALT Alkaline Phosphatase Total Protein Albumin Globulin Albumin/Globulin Ratio Urine Osmolality 479 01/08/14/22 08/15/22 16:40 20:25 01:02 WBC RBC Hgb Hct MCV MCH MCHC RDW Plt Count Neut % (Auto) Lymph % (Auto) [place] % (Auto) Eos % (Auto) Baso % (Auto) Neut # (Auto) Lymph # (Auto) [place] # (Auto) Eos # (Auto) Baso # (Auto) Sodium 118 L* 121 L 122 L Potassium 4.5 4.3 4.6 Chloride 79 L 81 L 81 L Carbon Dioxide 35 H 34 H 38 H BUN 20 22 H 21 H Creatinine 0.73 0.79 0.70 Estimated GFR > 60 > 60 > 60 BUN/Creatinine Ratio 27.4 H 27.8 H 30.0 H Glucose 95 106 96 Serum Osmolality Calcium 8.6 8.5 8.6 Magnesium Total Bilirubin AST ALT Alkaline Phosphatase Total Protein Albumin Globulin Albumin/Globulin Ratio Urine Osmolality 08/15/22 08/15/22 03:57 03:57 WBC 8.5 RBC 3.95 L Hgb 12.8 L Hct 37.7 L MCV 95.5 MCH 32.3 MCHC 33.8 RDW 14.7 Plt Count 114 L Neut % (Auto) 76.4 H Lymph % (Auto) 11.1 L [place] % (Auto) 10.3 Eos % (Auto) 1.9 L Baso % (Auto) 0.3 Neut # (Auto) 6500 Lymph # (Auto) 900 L [place] # (Auto) 900 Eos # (Auto) 200 Baso # (Auto) 0 Sodium 121 L Potassium 4.5 Chloride 82 L Carbon Dioxide 36 H BUN 18 Creatinine 0.63 L Estimated GFR > 60 BUN/Creatinine Ratio 28.6 H Glucose 95 Serum Osmolality Calcium 8.5 Magnesium 1.7 Total Bilirubin 0.6 AST 40 ALT 39 Alkaline Phosphatase 121 Total Protein 6.5 Albumin 3.3 L Globulin 3.2 Albumin/Globulin Ratio 1.0 Urine Osmolality Exam Vital Signs (past 8 hours): - 08/15/22 02:00 08/15/22 02:00 08/15/22 02:01 Temperature Pulse Rate 92 H 88 Respiratory Rate 18 14 Blood Pressure 120/58 L Pulse Oximetry 98 98 Oxygen Delivery Method Oxygen Flow Rate 3 3 3 08/15/22 03:00 08/15/22 03:00 08/15/22 03:03 Temperature Pulse Rate 97 H 91 H Respiratory Rate 23 13 Blood Pressure 128/57 L Pulse Oximetry 91 93 Oxygen Delivery Method Oxygen Flow Rate 3 3 3 08/15/22 04:00 08/15/22 04:00 08/15/22 04:16 Temperature 98.6 F Pulse Rate 92 H 94 H Respiratory Rate 13 14 Blood Pressure 109/55 L Pulse Oximetry 95 95 Oxygen Delivery Method Oxygen Flow Rate 3 3 3 08/15/22 05:00 08/15/22 05:00 08/15/22 05:03 Temperature Pulse Rate 94 H 94 H Respiratory Rate 14 14 Blood Pressure 97/52 L Pulse Oximetry 89 L 89 L Oxygen Delivery Method Oxygen Flow Rate 3 3 3 08/15/22 05:00 08/15/22 06:00 08/15/22 06:00 Temperature Pulse Rate 93 H Respiratory Rate 14 Blood Pressure 99/54 L Pulse Oximetry 96 Oxygen Delivery Method Nasal Cannula Oxygen Flow Rate 3 3 08/15/22 06:08 08/15/22 07:00 08/15/22 07:00 Temperature Pulse Rate 93 H 96 H Respiratory Rate 15 15 Blood Pressure 99/54 L Pulse Oximetry 95 93 Oxygen Delivery Method Oxygen Flow Rate 3 08/15/22 09:00 Temperature Pulse Rate Respiratory Rate Blood Pressure Pulse Oximetry Oxygen Delivery Method Nasal Cannula Oxygen Flow Rate Fraction of Inspired Oxygen 38 SaO2/FiO2 Ratio 242 Oxygen Delivery Method Nasal Cannula Oxygen Flow Rate 3 Quality TeleICU VTE Deep Vein Thrombosis/Pulmonary Embolism Present on Admission: No Assessment & Plan Assessment & Plan narrative: Assessment & Plan narrative: 71M admit with COPD exacerbation and hyponatremia NEURO: # Generalized weakness -- Secondary to severe hyponatermia -- Hyponatremia management as below -- Seek PT/OT and OOB as tolerated -- Fall precaution # Withdrawal -- Librium - wean, CIWA RESP: # AECOPD -- No PFTs on file? -- on 3 L NC -- Azithromycin/Levoquin -- Cont duoneb? CVS: # HTN -- Goal SBP < 140 ; # Hyponatremia -- Goal Na is 130- 132 tonight and normal tomorrow -- Currently off IV fluid, continue that as well as fluid restriction to750 ml/24 hr -- Trend BMP every 6 hours. Monitor UOP -- UOP hourly call MD if If sodium level increased by more that 2 in 6 hrs or UOP above 200 ml/hr -- If no improvement in sodium level after 12 hrs, may consider salt tab 1 gm Q8H as needed -- Recommend primary team and PCP to eval as pt should get age appropriate screening for cancer ENDO: -- Goal BS < 180 VTE PPx: Lovenox Time Spent With Patient Critical Care time: I spent a total of [30 ] minutes of critical care time on this patient's care today; this time is exclusive of procedural time. Time Spent With Patient Critical Care time: I spent a total of [] minutes of critical care time on this patient's care today; this time is exclusive of procedural time.
[2022-08-15] MEDS: OXYCODONE IR 5 MG TABLET PO (10:16)
[2022-08-15] MEDS: ACETAMINOPHEN 325 MG TABLET 650 MG PO ×2 (10:17→19:39)
--- NOTE | 2022-08-15 10:30 | PM.PN.1 ---
Subjective Subjective Interval history: 71-year-old gentleman with COPD, hypertension, gout, chronic low back pain, alcohol dependence, tobacco dependence admitted with severe acute hyponatremia, hypomagnesemia, COPD exacerbation, and myocardial injury. On admission his sodium was 107 on the evening of August 12.? He had rapid correction up to 118 08/13/2022 at 2:48 p.m.. Patient received DDAVP as well as D5 on 08/13/2022.? Sodium did come back down to 113 early yesterday morning.? Subsequently at 114 yesterday morning. Patient continues to complain of shortness of breath. He notes he typically has significant sputum production in the mornings. He describes it as usually being clear or white. Here it has been green. His shortness of breath remains unchanged. RN notes some mild ongoing confusion. He is somewhat slow to respond to questions. However he remains oriented. Exam Vital Signs (past 8 hours): - 08/15/22 03:00 08/15/22 03:00 08/15/22 03:03 Temperature Pulse Rate 97 H 91 H Respiratory Rate 23 13 Blood Pressure 128/57 L Pulse Oximetry 91 93 Oxygen Delivery Method Oxygen Flow Rate 3 3 3 08/15/22 04:00 08/15/22 04:00 08/15/22 04:16 Temperature 98.6 F Pulse Rate 92 H 94 H Respiratory Rate 13 14 Blood Pressure 109/55 L Pulse Oximetry 95 95 Oxygen Delivery Method Oxygen Flow Rate 3 3 3 08/15/22 05:00 08/15/22 05:00 08/15/22 05:03 Temperature Pulse Rate 94 H 94 H Respiratory Rate 14 14 Blood Pressure 97/52 L Pulse Oximetry 89 L 89 L Oxygen Delivery Method Oxygen Flow Rate 3 3 3 08/15/22 05:00 08/15/22 06:00 08/15/22 06:00 Temperature Pulse Rate 93 H Respiratory Rate 14 Blood Pressure 99/54 L Pulse Oximetry 96 Oxygen Delivery Method Nasal Cannula Oxygen Flow Rate 3 3 08/15/22 06:08 08/15/22 07:00 08/15/22 07:00 Temperature Pulse Rate 93 H 96 H Respiratory Rate 15 15 Blood Pressure 99/54 L Pulse Oximetry 95 93 Oxygen Delivery Method Oxygen Flow Rate 3 08/15/22 09:00 08/15/22 08:00 08/15/22 08:00 Temperature Pulse Rate 95 H Respiratory Rate 15 Blood Pressure 103/51 L Pulse Oximetry 94 Oxygen Delivery Method Nasal Cannula Oxygen Flow Rate 08/15/22 09:00 08/15/22 09:00 08/15/22 10:00 Temperature Pulse Rate 106 H Respiratory Rate 23 Blood Pressure 118/58 L 123/67 Pulse Oximetry 91 Oxygen Delivery Method Oxygen Flow Rate 08/15/22 10:00 Temperature Pulse Rate 109 H Respiratory Rate 22 Blood Pressure Pulse Oximetry 93 Oxygen Delivery Method Oxygen Flow Rate Fraction of Inspired Oxygen 38 SaO2/FiO2 Ratio 242 Oxygen Delivery Method Nasal Cannula Oxygen Flow Rate 3 Narrative Exam Narrative: GEN: Middle-aged male, Alert and oriented x 3, NAD HEENT:NC, Face symmetric CHEST: Respiratory excursions symmetric, diffuse expiratory wheezes bilaterally, diffusely diminished CV: RRR, no M/R/G ABD: Soft, NT/ND, BT present in all 4 quadrants, no organomegaly or masses EXTR: warm, well perfused, no C/C/E SKIN: warm and dry, no rash NEURO: Alert and oriented x 3, nonfocal Objective Labs 08/15/22 03:57 08/15/22 03:57 Labs: Laboratory Results - last 24 hr 08/12/22 08/12/22 08/14/22 22:46 22:46 12:25 WBC RBC Hgb Hct MCV MCH MCHC RDW Plt Count Neut % (Auto) Lymph % (Auto) [place] % (Auto) Eos % (Auto) Baso % (Auto) Neut # (Auto) Lymph # (Auto) [place] # (Auto) Eos # (Auto) Baso # (Auto) Sodium 115 L* Potassium 4.0 Chloride 77 L Carbon Dioxide 35 H BUN 15 Creatinine 0.57 L Estimated GFR > 60 BUN/Creatinine Ratio 26.3 H Glucose 116 H Serum Osmolality 226 L Calcium 8.3 L Magnesium Total Bilirubin AST ALT Alkaline Phosphatase Total Protein Albumin Globulin Albumin/Globulin Ratio Urine Osmolality 479 08/14/22 08/14/22 08/15/22 16:40 20:25 01:02 WBC RBC Hgb Hct MCV MCH MCHC RDW Plt Count Neut % (Auto) Lymph % (Auto) [place] % (Auto) Eos % (Auto) Baso % (Auto) Neut # (Auto) Lymph # (Auto) [place] # (Auto) Eos # (Auto) Baso # (Auto) Sodium 118 L* 121 L 122 L Potassium 4.5 4.3 4.6 Chloride 79 L 81 L 81 L Carbon Dioxide 35 H 34 H 38 H BUN 20 22 H 21 H Creatinine 0.73 0.79 0.70 Estimated GFR > 60 > 60 > 60 BUN/Creatinine Ratio 27.4 H 27.8 H 30.0 H Glucose 95 106 96 Serum Osmolality Calcium 8.6 8.5 8.6 Magnesium Total Bilirubin AST ALT Alkaline Phosphatase Total Protein Albumin Globulin Albumin/Globulin Ratio Urine Osmolality 08/15/22 08/15/22 03:57 03:57 WBC 8.5 RBC 3.95 L Hgb 12.8 L Hct 37.7 L MCV 95.5 MCH 32.3 MCHC 33.8 RDW 14.7 Plt Count 114 L Neut % (Auto) 76.4 H Lymph % (Auto) 11.1 L [place] % (Auto) 10.3 Eos % (Auto) 1.9 L Baso % (Auto) 0.3 Neut # (Auto) 6500 Lymph # (Auto) 900 L [place] # (Auto) 900 Eos # (Auto) 200 Baso # (Auto) 0 Sodium 121 L Potassium 4.5 Chloride 82 L Carbon Dioxide 36 H BUN 18 Creatinine 0.63 L Estimated GFR > 60 BUN/Creatinine Ratio 28.6 H Glucose 95 Serum Osmolality Calcium 8.5 Magnesium 1.7 Total Bilirubin 0.6 AST 40 ALT 39 Alkaline Phosphatase 121 Total Protein 6.5 Albumin 3.3 L Globulin 3.2 Albumin/Globulin Ratio 1.0 Urine Osmolality [facility] Medical History (Updated 08/13/22 @ 05:41 by KATHY Salguero) Alcohol abuse Continuous tobacco abuse Emphysema lung Essential hypertension Surgical History (Updated 08/13/22 @ 05:41 by KATHY Salguero) History of hernia repair Family History Father Cancer Mother Emphysema of lung Social History household members: none Smoking Status: Current every day smoker alcohol intake: current Assessment & Plan Assessment & Plan narrative: 1. Hyponatremia Sodium was 107 on August 12 at 8:20 p.m..? Up to 114 on August 13 at 4:33 a.m..? Increase to 118 on August 13 at 2:48 p.m..? Subsequently down to 113 after DDAVP and D5. Yesterday it slowly increased up to 121. Overnight has remained in the 120-121 range. Continue normal saline at 50 cc/hour along with fluid restriction. Will recheck labs this afternoon. 2. COPD exacerbation Will place budesonide nebulizers.? He does report using Advair on an outpatient basis.? Presently day 2/3 of azithromycin. Will also add Mucinex to assist with sputum clearance, flutter valve, and work on increasing his activity level. Hospital pharmacy does not carry fomoterol. 3. Acute hypoxic respiratory failure Present requiring 3 L of oxygen to maintain saturations in the low 90s.? Will wean as able.? Etiology is COPD exacerbation 4. Possible NSTEMI versus demand ischemia Continue aspirin therapy.? Echocardiogram was performed on 08/12 but results remain pending. Lipids are within normal limits with the exception of HDL which was high at 95. 5. Alcohol dependence Patient has been on Librium 25 mg Q 12 hours.?Will discontinue Librium today. CIWA scores are 0-1.? Continue multivitamin and thiamine 6. Tobacco dependence Recommend cessation.? Nicotine patch in place. 7. Acute on chronic mild malnutrition He does admit to poor appetite.? Will monitor nutritional intake. 8. Hypertension Blood pressures remain normotensive. 9. Mild normocytic anemia Hemoglobin is stable at 12.8. 10. Thrombocytopenia Likely alcohol related.? Platelets were 166 on admission, remain stable at 114.? He is receiving lovenox, but I do not have significant concern for HIT. 11. Acute on chronic back pain Continue oxycodone as needed.? Work towards mobilization. 12. Constipation Reports he has not had a bowel movement in 4 days.?Senna added yesterday. Will jessy. Code status DNR/DNI Prophylaxis On Lovenox Disposition Pending, will get up to chair TID and have PT assess. Time Spent With Patient Critical Care time: I spent a total of [] minutes of critical care time on this patient's care today; this time is exclusive of procedural time. Quality VTE Deep Vein Thrombosis/Pulmonary Embolism Present on Admission: No
[2022-08-15] MEDS: guaiFENesin ER 600 MG TAB 1200 MG PO ×2 (10:44→21:00)
[2022-08-15] MEDS: NALOXONE 0.4 MG/ML VIAL 0.2 MG IV ×4 (12:03→16:04)
[2022-08-15 12:30] LABS: BUN Creatinine Ratio 26.5 (6-22); Blood Urea Nitrogen 18 mg/dL (9-20); Calcium 8.9 mg/dL (8.4-10.2); Carbon Dioxide 37 mmol/L (22-32); Chloride 82 mmol/L (98-107); Estimated Glomerular Filt Rate > 60 mL/min (>60); Glucose 108 mg/dL (80-110); HEMOLYSIS < 15 (0-50); Potassium 4.7 mmol/L (3.4-5.1); Sodium 122 mmol/L (137-145)
--- NOTE | 2022-08-15 12:44 | CM.DANOTE ---
Addendum entered by Hailey Diamond R.N. 08/15/22 13:26: This CM met with Patient, his sister Toña and Niece Salome at approx 1030 this am. Patient gave permission to speak with Toña and Salome re. any continuing care needs that he may need. This CM spoke with patient about transfer to SNF from here for further needs. Pt agreeable but concerned of cost. This CM assurred pt that Ethel and medicare should cover the cost with authorization. This CM explained my role to support with the process. Reviewed SNF via tablet with Patient, Sister and Niece. Agreement was made to attempt to go to [facility]. PASSR completed. Will send referral paperwork via fax to [facility]. P: D/C to SNF when medically stable. Original Note: DCP: Assessment on this patient performed yesterday 08/14 and charting completed, although unable to find in [employer] today. Pt 71 yo disabled male arrived via Ambulance with worstening sob, fatigue and inability to think clearly, noted to be hyponatremic, severe acute with hypomagnesemia, COPD exacerbation with Myocardial injury NSTEMI as evidenced by troponins above 99 percentile, Sepsis without septic Shock, alcohol abuse, malnutrition. He has hx of Alcohol abuse, Tobacco abuse, Copd, HTN. PCP: Mary Kay Solomon Insurance: [facility] Met with pt in his room on 08/14. Introduced self and role. Pt confirmed that he does not drive. He states that he resides at [facility] and lives in a cottage without assistance. Pt reports that he uses a cane at home when I feel like walking and confirms that I do not like to use the walker. Pt gave this CM the phone # of his 2 main contacts. Sister, Toña Quiros [phone], Salome Dela Cruzshirleysharonda [phone]. P: PT/OT pending. Following closely to determine plan. Hailey Diamond RN Case Manager Discharge Planning/Care Management CM Discharge Assessment Start: 08/14/22 15:40 Freq: Status: Active Protocol: Document 08/14/22 15:40 LUKASZ (Rec: 08/14/22 15:53 [id number]) Discharge Planning Assessment Assigned [employer] Hailey Diamond RN Case Manager Advance Directives? Yes Advance Directives on File No History Provided By Patient Has Patient been admitted in last 30 No days? Prior Living Arrangements Assisted Living Household Members none Facility Name Admitted From: [facility] Willing to Return to Facility? Yes Independent with ADL's No Is patient alert and oriented? Yes Needs Assistance With Meal Prep Caregiver for Another No Comment Return to [facility] Barriers to Discharge No Discharge Plan Assisted Living Facility Transportation Arrangement [facility] to transport Additional Comment Currently under assessment Whiteboard Updated in Patient Room with No name and ext. # of [employer] Review Status In Process Next Review Type Continued Stay Review
--- NOTE | 2022-08-15 12:57 | PT-IP ANOTE ---
checked on pt and nurse in room. stated that pt is lethargic. nurse was attempting to wake pt but pt is non arousable and might have to give pt narcan. pt not appropriate for PT eval at this time. will f/u
--- NOTE | 2022-08-15 13:27 | PT-IP ANOTE ---
checked on pt and pt has eyes open but seems still drowsy. informed pt regarding PT and pt stated that he cannot at this time since he is hurting. Talked with nurse and NAC and informed pt's refusal and level of alertness.
--- NOTE | 2022-08-15 15:07 | PC.NURSE ---
Addendum entered by Frankie Mcdonnell R.N. 08/15/22 17:20: mentation improved after bipap, able to verbally respond and ask questions Addendum entered by Frankie Mcdonnell R.N. 08/15/22 15:40: narcan 0.2mg x2, 500mL NS bolus, ABG, and various labs ordered Original Note: bp 73/41 and patient not responding to sternal rubs, dr flores alerted
--- NOTE | 2022-08-15 15:18 | DI.RAD.S_ITS ---
PROCEDURE: XR CHEST 1V INDICATIONS: obtunded TECHNIQUE: One view of the chest was acquired. COMPARISON: [facility], CR, XR CHEST 1V, 08/12/2022, 20:08. FINDINGS: Surgical changes and devices: None. Lungs and pleura: On this semiupright portable chest examination, no large pneumothorax or large pleural effusions are seen. No focal infiltrates are seen. The lungs are hyperexpanded. Mediastinum: The cardiac contours are within normal limits. The aorta demonstrates calcification and tortuosity. Bones and chest wall: No suspicious bony lesions. Overlying soft tissues appear unremarkable. IMPRESSION: No focal infiltrates are seen. Dictated by: Juan Schreiber M.D. on 08/15/2022 at 15:11 Approved by: Juan Schreiber M.D. on 08/15/2022 at 15:12
--- NOTE | 2022-08-15 15:32 | P.EN_ITS ---
Event Note Date Patient Seen: 08/15/22 Time Patient Seen: 15:05 Event Note (Rapid Response, Code, or fall): Over the Course of the day, patient has had some lethargy. He was given Narcan 0.2 mg IV at around 12:00 p.m.. He did respond and became much more awake and alert. He reported he continued to feel somewhat slow in his thinking. Follow- up bladder work revealed a sodium of 122, chloride of 82, bicarb of 37. I subsequently was contacted at approximately 3:00 a.m. secondary to acute hypotension and encephalopathy. I presented to the room and patient was noted to be obtunded and hypotensive with pressures in the 70s. He had not been responding to sternal rub. IV fluid bolus ordered 0.2 mg of IV Narcan was given and an ABG was ordered. He did not have much response to the Narcan. He did respond somewhat to painful stimuli in his blood pressure briefly improved. Subsequently blood pressure decreased back to 70 systolic. 500 cc fluid bolus was ordered, additional Narcan given, stat labs, portable chest x-ray, and head CT were ordered as well. ABG was performed which revealed evidence of a respiratory acidosis with a pH of 7.22 and pCO2 of 95. BiPAP is being placed. IV fluid bolus is being given with systolic pressure up to 94. Labs are presently pending. Will defer head CT pending response to BiPAP. Patient was readmitted to ICU and the bioprocess engineer will be notified of the change in his status.
[2022-08-15] MEDS: SODIUM CHLORIDE 0.9% 500 ML 1000 ML IV (15:34)
[2022-08-15 15:52] LABS: Fractionated Inspired Oxygen 30; HCO3 ABG 39 mmol/L (23-27); Oxygen Saturation ABG 88 % (95-100); PCO2 ABG 94.6 mmHg (35-45); PO2 ABG 69 mmHg (80-100); TCO2 ABG 42 mmol/L (23-27); pH ABG 7.22 (7.35-7.45)
[2022-08-15 16:06] LABS: Add Manual Diff / Slide Review NO; Basophils Absolute Auto 0 /uL (0-100); Basophils Percent Auto 0.3 % (0-2); Eosinophils Absolute Auto 100 /uL (0-450); Eosinophils Percent Auto 0.7 % (2-4); Hematocrit 38.8 % (41-53); Hemoglobin 12.7 g/dL (13.5-17.5); Lymphocytes Absolute Auto 1000 /uL (1100-4500); Lymphocytes Percent Auto 10.5 % (25-40); Mean Corpuscular HGB Conc 32.8 % (30-36); Mean Corpuscular Volume 97.5 fL (80-100); Monocytes Absolute Auto 1200 /uL (0-900); Monocytes Percent Auto 12.5 % (3-14); Neutrophils Absolute Auto 7500 /uL (1500-7000); Platelet Count 127 X10^3/uL (150-400); Red Blood Cell Count 3.98 X10^6/uL (4.5-5.9); Red Cell Distribution Width 14.5 % (11.6-14.8); White Blood Cell Count 9.9 X10^3/uL (4.5-11.0)
[2022-08-15 16:07] LABS: Lactate (Lactic Acid) 0.5 mmol/L (0.7-2.1)
[2022-08-15 16:10] LABS: BUN Creatinine Ratio 23.3 (6-22); Blood Urea Nitrogen 20 mg/dL (9-20); Calcium 8.8 mg/dL (8.4-10.2); Carbon Dioxide 38 mmol/L (22-32); Chloride 83 mmol/L (98-107); Estimated Glomerular Filt Rate > 60 mL/min (>60); Glucose 118 mg/dL (80-110); HEMOLYSIS < 15 (0-50); Potassium 4.8 mmol/L (3.4-5.1); Sodium 123 mmol/L (137-145)
[2022-08-15] MEDS: ALBUTEROL/IPRATROPIUM 3 ML AMPUL INH ×2 (16:28→18:15)
[2022-08-15] MEDS: NOREPINEPHRINE BITARTRATE/D5W 4 MG/250 ML PLAST..BAG 15 MG IV (17:08)
[2022-08-15] MEDS: BUDESONIDE 0.5 MG/2 ML NEB INH (18:15)
[2022-08-15 18:52] LABS: Fractionated Inspired Oxygen 35; HCO3 ABG 36 mmol/L (23-27); Oxygen Saturation ABG 95 % (95-100); PCO2 ABG 76.7 mmHg (35-45); PO2 ABG 90 mmHg (80-100); TCO2 ABG 38 mmol/L (23-27); pH ABG 7.28 (7.35-7.45)
--- NOTE | 2022-08-15 20:51 | PM.ICURNDS ---
- :: This patient was seen via real time interactive two-way audiovisual telecommunication. patient was obtunded earlier in the day, placed on bipap due ot resp acidosis, which seems ot be imrpving, - mental status now much better htough slightly copnfused. Will remain on bipap through out the night and will need continued ABG and neurochecks
[2022-08-15] MEDS: SENNOSIDES 8.6 MG TABLET PO (21:00)
[2022-08-15 21:46] LABS: HCO3 ABG 37 mmol/L (23-27); PO2 ABG 69 mmHg (80-100); TCO2 ABG 39 mmol/L (23-27)
[2022-08-15 21:47] LABS: Fractionated Inspired Oxygen 35; Oxygen Saturation ABG 91 % (95-100)
--- NOTE | 2022-08-15 21:49 | RT ---
Pt's RN notified of ABG results at 2132.
--- NOTE | 2022-08-15 22:02 | RT ---
Dr. Acharya notified regarding most recent ABG result of pH 7.302/PCO2 74/PO2 69/BE 10/Bicarb. 36.6/SaO2 91% on BiPAP 24/6 35% at 2201 on 08/15/22. No changes per Dr. Acharya.
[2022-08-16] VITALS (109 sets, daily range): BP systolic 84–156; BP diastolic 42–94; PULSE 75–108; RESP 14–40; TEMP 26–37.1; O2SAT 74–100
[2022-08-16] MEDS: NOREPINEPHRINE BITARTRATE/D5W 4 MG/250 ML PLAST..BAG 30 MG IV (04:24)
[2022-08-16] MEDS: ALBUTEROL/IPRATROPIUM 3 ML AMPUL INH ×4 (06:17→19:09)
[2022-08-16] MEDS: BUDESONIDE 0.5 MG/2 ML NEB INH ×2 (06:17→19:09)
[2022-08-16 06:23] LABS: Add Manual Diff / Slide Review NO; Basophils Absolute Auto 0 /uL (0-100); Basophils Percent Auto 0.3 % (0-2); Eosinophils Absolute Auto 300 /uL (0-450); Eosinophils Percent Auto 1.9 % (2-4); Hemoglobin 12.1 g/dL (13.5-17.5); Lymphocytes Absolute Auto 800 /uL (1100-4500); Lymphocytes Percent Auto 6.2 % (25-40); Mean Corpuscular HGB Conc 33.7 % (30-36); Mean Corpuscular Volume 94.9 fL (80-100); Monocytes Absolute Auto 1200 /uL (0-900); Monocytes Percent Auto 9.4 % (3-14); Neutrophils Absolute Auto 10900 /uL (1500-7000); Neutrophils Percent Auto 82.2 % (50-75); Platelet Count 134 X10^3/uL (150-400); Red Blood Cell Count 3.79 X10^6/uL (4.5-5.9); Red Cell Distribution Width 14.4 % (11.6-14.8); White Blood Cell Count 13.2 X10^3/uL (4.5-11.0)
[2022-08-16 06:35] LABS: Blood Urea Nitrogen 18 mg/dL (9-20); Calcium 8.9 mg/dL (8.4-10.2); Carbon Dioxide 35 mmol/L (22-32); Chloride 84 mmol/L (98-107); Estimated Glomerular Filt Rate > 60 mL/min (>60); Glucose 111 mg/dL (80-110); HEMOLYSIS < 15 (0-50); Potassium 4.4 mmol/L (3.4-5.1); Sodium 122 mmol/L (137-145)
[2022-08-16] MEDS: levoFLOXacin 250 MG TABLET 750 MG PO (06:51)
[2022-08-16] MEDS: AZITHROMYCIN 250 MG TABLET 500 MG PO (08:31)
[2022-08-16] MEDS: MULTIVITAMIN 1 TABLET 1 TAB PO (08:31)
[2022-08-16] MEDS: ACETAMINOPHEN 325 MG TABLET 650 MG PO ×3 (08:31→19:01)
[2022-08-16] MEDS: guaiFENesin ER 600 MG TAB 1200 MG PO ×2 (08:32→20:07)
[2022-08-16] MEDS: NICOTINE 14 PATCH 14 MG TOP (08:32)
[2022-08-16] MEDS: FOLIC ACID 1 MG TABLET PO (08:32)
[2022-08-16] MEDS: THIAMINE 100 MG TABLET PO (08:32)
[2022-08-16] MEDS: ENOXAPARIN 40 MG/0.4 ML SYRINGE SUBCUT (08:32)
[2022-08-16] MEDS: LIDOCAINE PATCH 1 EACH ADH..PATCH TOP (08:32)
[2022-08-16] MEDS: ASPIRIN EC 81 MG TABLET PO (08:32)
[2022-08-16] MEDS: SENNOSIDES 8.6 MG TABLET PO ×2 (08:42→20:07)
--- NOTE | 2022-08-16 11:33 | PM.PN.EICU ---
Subjective Subjective IF CAMERA ACTIVATED, patient seen via real-time interactive audiovisual communication: Camera activated Consent obtained for tele-network coordinator care: Yes Patient Location: ICU Provider location (State): [place] Other participants/roles: RN Interval history: PAtient imrpoved this AM, now off bipap, remains on low dose levophed. Current Medications Current Medications Medications: Home Medications allopurinol 300 mg tablet 300 mg PO DAILY 08/13/22 [History Confirmed 08/13/22] fluticasone 500 mcg-salmeterol 50 mcg/dose blistr powdr for inhalation (Advair Diskus) 1 inh inhalation BID 08/13/22 [History Confirmed 08/13/22] indapamide 1.25 mg tablet 1.25 mg PO QAM 08/13/22 [History Confirmed 08/13/22] Visit Medications (administered) Generic Name Dose Route Start Last Admin Trade Name Freq PRN Reason Stop Dose Admin Acetaminophen 650 mg 08/15/22 20:00 08/16/22 08:31 Acetaminophen 325 Mg Tablet PO 650 mg Q6H AMY Administration Albuterol/Ipratropium 3 ml 08/12/22 22:59 08/15/22 16:28 Albuterol/Ipratropium 3 Ml Ampul INH 3 ml RTQ4HR PRN Administration Shortness Of Breath Or Wheezing Albuterol/Ipratropium 3 ml 08/15/22 11:00 08/16/22 10:54 Albuterol/Ipratropium 3 Ml Ampul INH 3 ml RTQID AMY Administration Aspirin 81 mg 08/13/22 09:00 08/16/22 08:32 Aspirin Ec 81 Mg Tablet PO 81 mg DAILY AMY Administration Budesonide 0.5 mg 08/15/22 20:00 08/16/22 06:17 Budesonide 0.5 Mg/2 Ml Neb INH 0.5 mg RTBID AMY Administration Enoxaparin Sodium 40 mg 08/13/22 09:00 08/16/22 08:32 Enoxaparin 40 Mg/0.4 Ml Syringe SUBCUT 40 mg DAILY AMY Administration Folic Acid 1 mg 08/14/22 13:45 08/16/22 08:32 Folic Acid 1 Mg Tablet PO 1 mg DAILY AMY Administration Guaifenesin 1,200 mg 08/15/22 10:30 08/16/22 08:32 Guaifenesin Er 600 Mg Tab PO 1,200 mg BID AMY Administration NOREPINEPHRINE BITARTRATE/D5W 4 mg in 250 mls @ 30 mls/hr 08/15/22 17:00 08/16/22 06:39 Levophed IV 4 mcg/min TITRATE AMY 15 mls/hr Titration Protocol 8 MCG/MIN Levofloxacin 750 mg 08/15/22 16:11 08/16/22 06:51 Levofloxacin 250 Mg Tablet PO 750 mg 0700 AMY Administration Lidocaine 1 each 08/13/22 09:00 08/16/22 08:32 Lidocaine Patch 1 Each Adh..Patch TOP 1 each DAILY AMY Administration Lidocaine 1 each 08/14/22 21:00 08/15/22 21:00 Remove Lidocaine Patch TOP 1 each BEDTIME AMY Administration Multivitamins 1 tab 08/14/22 10:45 08/16/22 08:31 Multivitamin 1 Tablet PO 1 tab DAILY AMY Administration Naloxone HCl 0.2 mg 08/12/22 23:07 08/15/22 16:04 Naloxone 0.4 Mg/Ml Vial IV 0.2 mg Q2MIN PRN Administration Opiate Reversal Nicotine 14 mg 08/13/22 09:00 08/16/22 08:32 Nicotine 14 Patch TOP 14 mg DAILY AMY Administration Sennosides 8.6 mg 08/16/22 09:00 08/16/22 08:42 Sennosides 8.6 Mg Tablet PO 8.6 mg BID AMY Administration Thiamine HCl 100 mg 08/14/22 10:45 08/16/22 08:32 Thiamine 100 Mg Tablet PO 100 mg DAILY AMY Administration Objective Ventilator Parameters: Ventilator Settings FiO2 0.35 Labs 08/16/22 06:10 08/16/22 06:10 Labs: Laboratory Results - last 24 hr 08/15/22 08/15/22 08/15/22 12:05 15:18 15:45 WBC 9.9 RBC 3.98 L Hgb 12.7 L Hct 38.8 L MCV 97.5 MCH 32.0 MCHC 32.8 RDW 14.5 Plt Count 127 L Neut % (Auto) 76.0 H Lymph % (Auto) 10.5 L [place] % (Auto) 12.5 Eos % (Auto) 0.7 L Baso % (Auto) 0.3 Neut # (Auto) 7500 H Lymph # (Auto) 1000 L [place] # (Auto) 1200 H Eos # (Auto) 100 Baso # (Auto) 0 ABG pH 7.22 L* ABG pCO2 94.6 H* ABG pO2 69 L ABG HCO3 39 H ABG Total CO2 42 H ABG O2 Saturation 88 L ABG Base Excess 11.0 H FiO2 30 Sodium 122 L Potassium 4.7 Chloride 82 L Carbon Dioxide 37 H BUN 18 Creatinine 0.68 Estimated GFR > 60 BUN/Creatinine Ratio 26.5 H Glucose 108 Lactate Calcium 8.9 08/15/22 08/15/22 08/15/22 15:45 15:45 18:37 WBC RBC Hgb Hct MCV MCH MCHC RDW Plt Count Neut % (Auto) Lymph % (Auto) [place] % (Auto) Eos % (Auto) Baso % (Auto) Neut # (Auto) Lymph # (Auto) [place] # (Auto) Eos # (Auto) Baso # (Auto) ABG pH 7.28 L* ABG pCO2 76.7 H* ABG pO2 90 ABG HCO3 36 H ABG Total CO2 38 H ABG O2 Saturation 95 ABG Base Excess 9.0 H FiO2 35 Sodium 123 L Potassium 4.8 Chloride 83 L Carbon Dioxide 38 H BUN 20 Creatinine 0.86 Estimated GFR > 60 BUN/Creatinine Ratio 23.3 H Glucose 118 H Lactate 0.5 L Calcium 8.8 08/15/22 08/16/22 08/16/22 21:28 06:10 06:10 WBC 13.2 H RBC 3.79 L Hgb 12.1 L Hct 36.0 L MCV 94.9 MCH 32.0 MCHC 33.7 RDW 14.4 Plt Count 134 L Neut % (Auto) 82.2 H Lymph % (Auto) 6.2 L [place] % (Auto) 9.4 Eos % (Auto) 1.9 L Baso % (Auto) 0.3 Neut # (Auto) 44939 H Lymph # (Auto) 800 L [place] # (Auto) 1200 H Eos # (Auto) 300 Baso # (Auto) 0 ABG pH 7.30 L ABG pCO2 74.0 H* ABG pO2 69 L ABG HCO3 37 H ABG Total CO2 39 H ABG O2 Saturation 91 L ABG Base Excess 10.0 H FiO2 35 Sodium 122 L Potassium 4.4 Chloride 84 L Carbon Dioxide 35 H BUN 18 Creatinine 0.58 L Estimated GFR > 60 BUN/Creatinine Ratio 31.0 H Glucose 111 H Lactate Calcium 8.9 Exam Vital Signs (past 8 hours): - 08/16/22 03:34 08/16/22 03:34 08/16/22 05:34 Temperature Pulse Rate 87 Respiratory Rate 21 Blood Pressure 118/58 L 116/56 L Pulse Oximetry 94 Oxygen Delivery Method Oxygen Flow Rate Fraction of Inspired Oxygen 35 35 08/16/22 06:17 08/16/22 04:00 08/16/22 04:00 Temperature 98.8 F Pulse Rate 85 Respiratory Rate 20 Blood Pressure 104/55 L 133/63 Pulse Oximetry 96 Oxygen Delivery Method Oxygen Flow Rate Fraction of Inspired Oxygen 35 08/16/22 04:30 08/16/22 04:30 08/16/22 05:00 Temperature Pulse Rate 92 H Respiratory Rate 25 H Blood Pressure 156/69 H 129/60 Pulse Oximetry 90 L Oxygen Delivery Method Oxygen Flow Rate Fraction of Inspired Oxygen 08/16/22 05:00 08/16/22 05:30 08/16/22 05:30 Temperature Pulse Rate 82 79 Respiratory Rate 20 20 Blood Pressure 116/56 L Pulse Oximetry 94 94 Oxygen Delivery Method Oxygen Flow Rate Fraction of Inspired Oxygen 08/16/22 06:00 08/16/22 06:00 08/16/22 06:15 Temperature Pulse Rate 92 H Respiratory Rate 23 Blood Pressure 111/75 104/55 L Pulse Oximetry 94 Oxygen Delivery Method Oxygen Flow Rate Fraction of Inspired Oxygen 08/16/22 06:15 08/16/22 06:20 08/16/22 06:20 Temperature Pulse Rate 84 82 Respiratory Rate 21 20 Blood Pressure 107/57 L Pulse Oximetry 95 97 Oxygen Delivery Method Oxygen Flow Rate Fraction of Inspired Oxygen 08/16/22 06:25 08/16/22 06:25 08/16/22 06:30 Temperature Pulse Rate 82 Respiratory Rate 22 Blood Pressure 100/54 L 112/58 L Pulse Oximetry 97 Oxygen Delivery Method Oxygen Flow Rate Fraction of Inspired Oxygen 08/16/22 06:30 08/16/22 06:35 08/16/22 06:35 Temperature Pulse Rate 82 83 Respiratory Rate 19 20 Blood Pressure 117/58 L Pulse Oximetry 97 97 Oxygen Delivery Method Oxygen Flow Rate Fraction of Inspired Oxygen 08/16/22 06:45 08/16/22 06:45 08/16/22 06:53 Temperature Pulse Rate 83 86 Respiratory Rate 15 18 Blood Pressure 106/52 L Pulse Oximetry 97 96 Oxygen Delivery Method Oxygen Flow Rate Fraction of Inspired Oxygen 08/16/22 07:00 08/16/22 07:01 08/16/22 07:01 Temperature Pulse Rate 97 H 97 H Respiratory Rate 23 23 Blood Pressure 135/60 Pulse Oximetry 95 97 Oxygen Delivery Method Oxygen Flow Rate Fraction of Inspired Oxygen 08/16/22 07:15 08/16/22 07:15 08/16/22 07:30 Temperature Pulse Rate 96 H Respiratory Rate 17 Blood Pressure 126/57 L 99/56 L Pulse Oximetry 95 Oxygen Delivery Method Oxygen Flow Rate Fraction of Inspired Oxygen 08/16/22 07:30 08/16/22 07:45 08/16/22 07:46 Temperature Pulse Rate 99 H 97 H Respiratory Rate 22 31 H Blood Pressure 121/57 L Pulse Oximetry 95 97 Oxygen Delivery Method Oxygen Flow Rate Fraction of Inspired Oxygen 08/16/22 07:46 08/16/22 08:00 08/16/22 08:00 Temperature Pulse Rate 96 H 93 H Respiratory Rate 20 24 Blood Pressure 117/58 L Pulse Oximetry 97 93 Oxygen Delivery Method Oxygen Flow Rate Fraction of Inspired Oxygen 08/16/22 08:15 08/16/22 08:15 08/16/22 08:30 Temperature Pulse Rate 91 H Respiratory Rate 24 Blood Pressure 123/59 L 114/55 L Pulse Oximetry 98 Oxygen Delivery Method Oxygen Flow Rate Fraction of Inspired Oxygen 08/16/22 08:30 08/16/22 08:45 08/16/22 08:45 Temperature Pulse Rate 90 91 H Respiratory Rate 22 24 Blood Pressure 144/94 H Pulse Oximetry 91 97 Oxygen Delivery Method Oxygen Flow Rate Fraction of Inspired Oxygen 08/16/22 09:00 08/16/22 09:00 08/16/22 09:15 Temperature Pulse Rate 93 H Respiratory Rate 23 Blood Pressure 111/55 L 113/56 L Pulse Oximetry 95 Oxygen Delivery Method Oxygen Flow Rate Fraction of Inspired Oxygen 08/16/22 09:15 08/16/22 09:30 08/16/22 09:30 Temperature Pulse Rate 93 H 95 H Respiratory Rate 23 25 H Blood Pressure 106/52 L Pulse Oximetry 95 97 Oxygen Delivery Method Oxygen Flow Rate Fraction of Inspired Oxygen 08/16/22 09:45 08/16/22 09:45 08/16/22 10:00 Temperature Pulse Rate 93 H Respiratory Rate 19 Blood Pressure 96/52 L 96/53 L Pulse Oximetry 94 Oxygen Delivery Method Oxygen Flow Rate Fraction of Inspired Oxygen 08/16/22 10:00 08/16/22 10:15 08/16/22 10:15 Temperature Pulse Rate 91 H 91 H Respiratory Rate 16 15 Blood Pressure 101/54 L Pulse Oximetry 100 100 Oxygen Delivery Method Oxygen Flow Rate Fraction of Inspired Oxygen 08/16/22 10:54 08/16/22 10:30 08/16/22 10:30 Temperature Pulse Rate 99 H 91 H Respiratory Rate 18 19 Blood Pressure 107/51 L Pulse Oximetry 96 100 Oxygen Delivery Method Nasal Cannula Oxygen Flow Rate 3 Fraction of Inspired Oxygen 32 08/16/22 10:45 08/16/22 10:45 08/16/22 11:00 Temperature Pulse Rate 90 Respiratory Rate 19 Blood Pressure 120/58 L 104/55 L Pulse Oximetry 100 Oxygen Delivery Method Oxygen Flow Rate Fraction of Inspired Oxygen 08/16/22 11:00 08/16/22 11:15 08/16/22 11:15 Temperature Pulse Rate 90 91 H Respiratory Rate 16 23 Blood Pressure 120/58 L Pulse Oximetry 98 99 Oxygen Delivery Method Oxygen Flow Rate Fraction of Inspired Oxygen Fraction of Inspired Oxygen 32 SaO2/FiO2 Ratio 300 Oxygen Delivery Method Nasal Cannula Oxygen Flow Rate 3 Narrative Exam Narrative: surrogate for full exam is primary team Quality TeleICU VTE Deep Vein Thrombosis/Pulmonary Embolism Present on Admission: No Assessment & Plan Assessment and plan (1) Acute exacerbation of chronic obstructive airways disease: Status: Acute (2) Acute hyponatremia: Status: Acute (3) Alcohol abuse: Status: Acute (4) Shock: Status: Acute Assessment & Plan narrative: Continue [place] protocol on libirum trend abg bipap qhs NC dyatime nebs prn wean off levophed midodrine started adat tremd bmp trend cbc goal correction of Na no > 8 meq in 24 hours may need salt tabs iof there is no major improvement or if na trends down Goal BS < 180 VTE PPx: Lovenox Time Spent With Patient Critical Care time: I spent a total of 35 minutes of critical care time on this patient's care today; this time is exclusive of procedural time.
[2022-08-16] MEDS: MIDODRINE HCL 5 MG TABLET 10 MG PO ×2 (11:48→17:43)
--- NOTE | 2022-08-16 12:55 | P.PN_ITS ---
Subjective Subjective Interval history: 71-year-old gentleman with COPD, hypertension, gout, chronic low back pain, alcohol dependence, tobacco dependence admitted with severe acute hyponatremia, hypomagnesemia, COPD exacerbation, and myocardial injury. Hospital course has been complicated by an episode of acute hypoxic resp failure requiring BiPAP (likely d/t combination of opioids and COPD exac) and hypotension (idiopathic) requiring low-dose norepinephrine infusion. Pt reports he is feeling much better today c/w yesterday. He is happy to be off BiPAP but notes he did wear it most of the night. He notes no cough or sputum production this am. He again pointed out his PCP had been talking about pres cribing salt tablets for hyponatremia at a recent visit (suspect more chronic hyponatremia). Additionally he asks whether he can still drink a few beers per day. Exam Vital Signs (past 8 hours): - 08/16/22 05:34 08/16/22 06:17 08/16/22 05:00 Pulse Rate Respiratory Rate Blood Pressure 116/56 L 104/55 L 129/60 Pulse Oximetry Oxygen Delivery Method Oxygen Flow Rate Fraction of Inspired Oxygen 35 35 08/16/22 05:00 08/16/22 05:30 08/16/22 05:30 Pulse Rate 82 79 Respiratory Rate 20 20 Blood Pressure 116/56 L Pulse Oximetry 94 94 Oxygen Delivery Method Oxygen Flow Rate Fraction of Inspired Oxygen 08/16/22 06:00 08/16/22 06:00 08/16/22 06:15 Pulse Rate 92 H Respiratory Rate 23 Blood Pressure 111/75 104/55 L Pulse Oximetry 94 Oxygen Delivery Method Oxygen Flow Rate Fraction of Inspired Oxygen 08/16/22 06:15 08/16/22 06:20 08/16/22 06:20 Pulse Rate 84 82 Respiratory Rate 21 20 Blood Pressure 107/57 L Pulse Oximetry 95 97 Oxygen Delivery Method Oxygen Flow Rate Fraction of Inspired Oxygen 08/16/22 06:25 08/16/22 06:25 08/16/22 06:30 Pulse Rate 82 Respiratory Rate 22 Blood Pressure 100/54 L 112/58 L Pulse Oximetry 97 Oxygen Delivery Method Oxygen Flow Rate Fraction of Inspired Oxygen 08/16/22 06:30 08/16/22 06:35 08/16/22 06:35 Pulse Rate 82 83 Respiratory Rate 19 20 Blood Pressure 117/58 L Pulse Oximetry 97 97 Oxygen Delivery Method Oxygen Flow Rate Fraction of Inspired Oxygen 08/16/22 06:45 08/16/22 06:45 08/16/22 06:53 Pulse Rate 83 86 Respiratory Rate 15 18 Blood Pressure 106/52 L Pulse Oximetry 97 96 Oxygen Delivery Method Oxygen Flow Rate Fraction of Inspired Oxygen 08/16/22 07:00 08/16/22 07:01 08/16/22 07:01 Pulse Rate 97 H 97 H Respiratory Rate 23 23 Blood Pressure 135/60 Pulse Oximetry 95 97 Oxygen Delivery Method Oxygen Flow Rate Fraction of Inspired Oxygen 08/16/22 07:15 08/16/22 07:15 08/16/22 07:30 Pulse Rate 96 H Respiratory Rate 17 Blood Pressure 126/57 L 99/56 L Pulse Oximetry 95 Oxygen Delivery Method Oxygen Flow Rate Fraction of Inspired Oxygen 08/16/22 07:30 08/16/22 07:45 08/16/22 07:46 Pulse Rate 99 H 97 H Respiratory Rate 22 31 H Blood Pressure 121/57 L Pulse Oximetry 95 97 Oxygen Delivery Method Oxygen Flow Rate Fraction of Inspired Oxygen 08/16/22 07:46 08/16/22 08:00 08/16/22 08:00 Pulse Rate 96 H 93 H Respiratory Rate 20 24 Blood Pressure 117/58 L Pulse Oximetry 97 93 Oxygen Delivery Method Oxygen Flow Rate Fraction of Inspired Oxygen 08/16/22 08:15 08/16/22 08:15 08/16/22 08:30 Pulse Rate 91 H Respiratory Rate 24 Blood Pressure 123/59 L 114/55 L Pulse Oximetry 98 Oxygen Delivery Method Oxygen Flow Rate Fraction of Inspired Oxygen 08/16/22 08:30 08/16/22 08:45 08/16/22 08:45 Pulse Rate 90 91 H Respiratory Rate 22 24 Blood Pressure 144/94 H Pulse Oximetry 91 97 Oxygen Delivery Method Oxygen Flow Rate Fraction of Inspired Oxygen 08/16/22 09:00 08/16/22 09:00 08/16/22 09:15 Pulse Rate 93 H Respiratory Rate 23 Blood Pressure 111/55 L 113/56 L Pulse Oximetry 95 Oxygen Delivery Method Oxygen Flow Rate Fraction of Inspired Oxygen 08/16/22 09:15 08/16/22 09:30 08/16/22 09:30 Pulse Rate 93 H 95 H Respiratory Rate 23 25 H Blood Pressure 106/52 L Pulse Oximetry 95 97 Oxygen Delivery Method Oxygen Flow Rate Fraction of Inspired Oxygen 08/16/22 09:45 08/16/22 09:45 08/16/22 10:00 Pulse Rate 93 H Respiratory Rate 19 Blood Pressure 96/52 L 96/53 L Pulse Oximetry 94 Oxygen Delivery Method Oxygen Flow Rate Fraction of Inspired Oxygen 08/16/22 10:00 08/16/22 10:15 08/16/22 10:15 Pulse Rate 91 H 91 H Respiratory Rate 16 15 Blood Pressure 101/54 L Pulse Oximetry 100 100 Oxygen Delivery Method Oxygen Flow Rate Fraction of Inspired Oxygen 08/16/22 10:54 08/16/22 10:30 08/16/22 10:30 Pulse Rate 99 H 91 H Respiratory Rate 18 19 Blood Pressure 107/51 L Pulse Oximetry 96 100 Oxygen Delivery Method Nasal Cannula Oxygen Flow Rate 3 Fraction of Inspired Oxygen 32 08/16/22 10:45 08/16/22 10:45 08/16/22 11:00 Pulse Rate 90 Respiratory Rate 19 Blood Pressure 120/58 L 104/55 L Pulse Oximetry 100 Oxygen Delivery Method Oxygen Flow Rate Fraction of Inspired Oxygen 08/16/22 11:00 08/16/22 11:15 08/16/22 11:15 Pulse Rate 90 91 H Respiratory Rate 16 23 Blood Pressure 120/58 L Pulse Oximetry 98 99 Oxygen Delivery Method Oxygen Flow Rate Fraction of Inspired Oxygen 08/16/22 11:30 08/16/22 11:30 08/16/22 11:45 Pulse Rate 91 H 90 Respiratory Rate 22 25 H Blood Pressure 120/58 L Pulse Oximetry 100 98 Oxygen Delivery Method Oxygen Flow Rate Fraction of Inspired Oxygen 08/16/22 12:00 08/16/22 12:00 08/16/22 07:00 Pulse Rate 92 H Respiratory Rate 19 Blood Pressure 112/53 L Pulse Oximetry 94 Oxygen Delivery Method Nasal Cannula Oxygen Flow Rate Fraction of Inspired Oxygen Fraction of Inspired Oxygen 32 SaO2/FiO2 Ratio 300 Oxygen Delivery Method Nasal Cannula Oxygen Flow Rate 3 Narrative Exam Narrative: GEN:? Middle-aged male, Alert and oriented x 3, NAD HEENT:NC, Face symmetric CHEST: Respiratory excursions symmetric, diffuse expiratory wheezes bilaterally, diffusely diminished CV: RRR, no M/R/G ABD: Soft, NT/ND, BT present in all 4 quadrants, no organomegaly or masses EXTR: warm, well perfused, no C/C/E SKIN: warm and dry, no rash NEURO: Alert and oriented x 3, nonfocal Objective Labs 08/16/22 06:10 08/16/22 06:10 Labs: Laboratory Results - last 24 hr 08/15/22 08/15/22 08/15/22 15:18 15:45 15:45 WBC 9.9 RBC 3.98 L Hgb 12.7 L Hct 38.8 L MCV 97.5 MCH 32.0 MCHC 32.8 RDW 14.5 Plt Count 127 L Neut % (Auto) 76.0 H Lymph % (Auto) 10.5 L [place] % (Auto) 12.5 Eos % (Auto) 0.7 L Baso % (Auto) 0.3 Neut # (Auto) 7500 H Lymph # (Auto) 1000 L [place] # (Auto) 1200 H Eos # (Auto) 100 Baso # (Auto) 0 ABG pH 7.22 L* ABG pCO2 94.6 H* ABG pO2 69 L ABG HCO3 39 H ABG Total CO2 42 H ABG O2 Saturation 88 L ABG Base Excess 11.0 H FiO2 30 Sodium 123 L Potassium 4.8 Chloride 83 L Carbon Dioxide 38 H BUN 20 Creatinine 0.86 Estimated GFR > 60 BUN/Creatinine Ratio 23.3 H Glucose 118 H Lactate Calcium 8.8 08/15/22 08/15/22 08/15/22 15:45 18:37 21:28 WBC RBC Hgb Hct MCV MCH MCHC RDW Plt Count Neut % (Auto) Lymph % (Auto) [place] % (Auto) Eos % (Auto) Baso % (Auto) Neut # (Auto) Lymph # (Auto) [place] # (Auto) Eos # (Auto) Baso # (Auto) ABG pH 7.28 L* 7.30 L ABG pCO2 76.7 H* 74.0 H* ABG pO2 90 69 L ABG HCO3 36 H 37 H ABG Total CO2 38 H 39 H ABG O2 Saturation 95 91 L ABG Base Excess 9.0 H 10.0 H FiO2 35 35 Sodium Potassium Chloride Carbon Dioxide BUN Creatinine Estimated GFR BUN/Creatinine Ratio Glucose Lactate 0.5 L Calcium 08/16/22 08/16/22 06:10 06:10 WBC 13.2 H RBC 3.79 L Hgb 12.1 L Hct 36.0 L MCV 94.9 MCH 32.0 MCHC 33.7 RDW 14.4 Plt Count 134 L Neut % (Auto) 82.2 H Lymph % (Auto) 6.2 L [place] % (Auto) 9.4 Eos % (Auto) 1.9 L Baso % (Auto) 0.3 Neut # (Auto) 47082 H Lymph # (Auto) 800 L [place] # (Auto) 1200 H Eos # (Auto) 300 Baso # (Auto) 0 ABG pH ABG pCO2 ABG pO2 ABG HCO3 ABG Total CO2 ABG O2 Saturation ABG Base Excess FiO2 Sodium 122 L Potassium 4.4 Chloride 84 L Carbon Dioxide 35 H BUN 18 Creatinine 0.58 L Estimated GFR > 60 BUN/Creatinine Ratio 31.0 H Glucose 111 H Lactate Calcium 8.9 PFSH Medical History (Updated 08/16/22 @ 11:36 by Boris Arrington MD) Alcohol abuse Continuous tobacco abuse Emphysema lung Essential hypertension Surgical History (Updated 08/13/22 @ 05:41 [facility] History of hernia repair Family History Father Cancer Mother Emphysema of lung Social History household members: none Smoking Status: Current every day smoker alcohol intake: current Assessment & Plan Assessment & Plan narrative: 1. Acute hypoxic resp failure Pt developed resp acidosis yesterday and required narcan x 3 doses as well as BiPAP. By last evening, he was improving. He is now on NC O2 at 3lpm. 2. COPD exac Pt doesn't tolerate steroids (increased agitation/anxiety). Continues budesonide nebs, duonebs, Azithro Day 3/ today, and Levaquin Day 2/. Continues mucinex, flutter valve. 3. Hyponatremia Sodium was 107 on August 12 at 8:20 p.m..? Up to 114 on August 13 at 4:33 a.m..? Increase to 118 on August 13 at 2:48 p.m..? Subsequently down to 113 after DDAVP and D5.? 08/14 rainged 118-121. 08/15, 08/08-08/09. This am, it was 122. Will liberalize fluid restriction given hypotension. Recheck labs this afternoon. Consider salt tabs. 4. Possible NSTEMI versus demand ischemia Continue aspirin therapy.? Echocardiogram was performed on 08/12 w/nl LV function, no WMA. Some expected right sided dysfunction.? Lipids are within normal limits with the exception of HDL which was high at 95. Given the minimal troponin elevation (max of 0.048), suspect this was demand ischemia related to hypoxia. 5. Alcohol dependence Librium d/c'd yesterday. Continue multivitamin and thiamine 6. Tobacco dependence Recommend cessation.? Nicotine patch in place. 7. Acute on chronic mild malnutrition He does admit to poor appetite.? Will monitor nutritional intake. 8. Hypotension Episode of significant prolonged hypotension yesterday which only briefly responded to fluid boluses. Lactate nl. No cardiac sxs. Stable Hgb. Hypotension was likely exacerbated by BiPAP. Continues low dose norepi. Midodrine added today. 9. Mild normocytic anemia Hemoglobin is stable at 12.1. 10. Thrombocytopenia Likely alcohol related.? Platelets were 166 on admission, darshan of 114. Now improved at 134. 11. Acute on chronic back pain Scheduled tylenol. Oxycodone d/c'd yesterday d/t resp acidosis and sedation. 12. Constipation Reports he has not had a bowel movement in 5 days.?Senna added 2 days ago. Will increase to BID. He is passing gas. If no BM this afternoon, will add MOM/dulcolax. Code status DNR/DNI Prophylaxis On Lovenox Disposition Await PT eval and dispo recs. Time Spent With Patient Critical Care time: I spent a total of [] minutes of critical care time on this patient's care today; this time is exclusive of procedural time. Quality VTE Deep Vein Thrombosis/Pulmonary Embolism Present on Admission: No
[2022-08-16 13:33] LABS: BUN Creatinine Ratio 28.1 (6-22); Blood Urea Nitrogen 18 mg/dL (9-20); Calcium 8.8 mg/dL (8.4-10.2); Carbon Dioxide 37 mmol/L (22-32); Chloride 83 mmol/L (98-107); Estimated Glomerular Filt Rate > 60 mL/min (>60); Glucose 143 mg/dL (80-110); HEMOLYSIS 24 (0-50); Potassium 4.6 mmol/L (3.4-5.1); Sodium 125 mmol/L (137-145)
--- NOTE | 2022-08-16 14:08 | PT.IIE ---
Current Diagnoses Hypo-osmolality and hyponatremia (08/12/22) Alcohol abuse, uncomplicated (08/12/22) Chronic obstructive pulmonary disease with (acute) exacerbation (08/12/22) Shock, unspecified (08/12/22) Surgical History (Last Updated 08/13/22 @ 05:41 by Jolie Schmidt [facility]) History of hernia repair Medical History (Last Updated 08/13/22 @ 05:41 by Jolie Schmidt [facility]) Alcohol abuse Continuous tobacco abuse Emphysema lung Essential hypertension Physical Therapy Inpatient Evaluation/Re-Eval M1 PT/OT-IP Prior Functional Status Start: 08/16/22 09:11 Freq: NEEDED Status: Active Protocol: Document 08/16/22 14:08 AW (Rec: 08/16/22 14:41 AW [id number]) Medical Review Prior Functional Status Medical History Reviewed Yes Communication Pt is able to make his needs known Mobility and Gait Pt states he can get around his apartment without AD. When he leaves home, he uses a SPC for short distances with a limit of 1/2-1 block due to SOB and LBP. For longer distances, he uses a motorized scooter/trike. Activities of Daily Living and IADL's Pt states he manages ADL's, medications, and finances independently. He states he drives but family in the room state pt does not drive. Prior Functional Level (Other details) Pt has COPD but does has never used home O2. Social History Household Members none Living Arrangements Assisted Living Home Environment Standard Height Toilet,Walk in Shower,Built-In Shower Seat Home Equipment Four Wheel Walker,Straight Cane,Power Wheelchair/Scooter, Hand Held Shower,Grab Bars In Shower Additional Social History Comment Pt has lived at [facility] for ~2 years. He has a supportive sister, Toña, as well as neice and nephew. M2 PT-IP Current Condition Start: 08/16/22 09:11 Freq: NEEDED Status: Active Protocol: Document 08/16/22 14:08 AW (Rec: 08/16/22 14:41 AW [id number]) Physical Therapy Current Condition Current Condition Evaluation Date 08/16/22 Treatment Diagnosis sepsis, COPD exacerbation, NSTEMI, impaired mobility Onset Date 08/12/22 M3 PT-IP Subjective Start: 08/16/22 09:11 Freq: NEEDED Status: Active Protocol: Document 08/16/22 14:08 AW (Rec: 08/16/22 14:41 AW [id number]) Subjective Physical Therapy Visit Type Type Initial Evaluation Visit Start Time 13:35 Visit Stop Time 14:08 Total Visit Minutes 33 Notes Toña Burch, and dena are in the room during evaluation Physical Therapy Visit Comments Patient Comments Pt is willing to participate with PT Patient Goals Pt wants to regain strength and be better able to take care of himself. Therapy Pain Assessment Pain When Pain Assessed During Mobility Pain Present Pain Present Pain Reported Location Back Scale Used not quantified; no worse than usual Pain Management Techniques Distraction,Re-positioning M4 PT-IP Mobility and Gait Start: 08/16/22 09:11 Freq: NEEDED Status: Active Protocol: Document 08/16/22 14:08 AW (Rec: 08/16/22 14:41 AW [id number]) PT-Bed Mobility Assessment Supine to Sit Supine to Sit Minimal Assistance,1 Person Assistance,Head of Bed Elevated,Bedrails Sit to Supine Sit to Supine Contact Guard Assistance, Minimal Assistance Scooting Scooting to Edge of Bed Minimal Assistance PT-Transfer Assessment Sit to and From Stand Sit to and from Stand Minimal Assistance,Moderate Assistance,1 Person Assistance ,Use of Upper Extremities Equipment Transfer Assistive Device Gait Belt,Front Wheeled Walker Orthotic/Prosthetic Devices or Brace: No Transfers Transfer Destination Chair Transfer Technique Stand Step Pivot Transfer Ability Level of Assist Minimal Assistance,Moderate Assistance,1 Person Assistance ,Use of Upper Extremities Comments Mobility Comments Pt was lying in bed as PT arrived. VS were BP 126/62 HR 95 SpO2 94% on 1.5 L/min. Pt agreed to sit up and needed assist for line management. Min A to sit up on the left side of the bed. He was able to sit EOB with and without UE support. Min A to stand with PT primarily stabilizing FWW as pt tended to pull on it. Pt stood and practiced marching in place with min A for balance support. He sat EOB for a rest break and stood again min A. He used FWW to transfer to the chair min/mod A. Pt respositioned himself on the chair and was left in reclined position with call light in reach. Family remained in the room. VS after activity were BP 115/55 HR 93 SpO2 92% on 1.5 L/min. Gait Assessment Gait Gait Assistance Required: Minimum Assistance,Moderate Assistance,1 Person Assist Distance (Feet) 3 Assistive Devices Assistive Device Gait Belt,Front Wheeled Walker Orthotic/Prosthetic Devices or Brace: No Gait Deviations General Gait Pattern Antalgic,Ataxic,Decreased Stride Length,Decreased Feet Clearance Factors Limiting Gait Function Factors Limiting Gait Function Decreased Activity Tolerance, Decreased Strength, Incoordination,Pain,Poor Balance,Poor Safety Awareness Comments Gait Comments See mobility comments for details. PT-Balance Assessment Sitting Balance and Reactions Static Sitting Balance Ability Good Dynamic Sitting Balance Ability Fair Standing Balance and Reactions Static Standing Balance Ability Fair Dynamic Standing Balance Ability Poor Device Used FWW M5 PT-IP Objective Assessments Start: 08/16/22 09:11 Freq: NEEDED Status: Active Protocol: Document 08/16/22 14:08 AW (Rec: 08/16/22 14:41 AW [id number]) Orientation Orientation/Cognition Level of Alertness Confusional State Orientation Name,Year,Place,Situation Comments Pt needing extra processing time receptively and expressively. Gross Range of Motion Lower Extremity ROM Assessment Within Functional Limits Strength Lower Extremity Strength Assessment Bilaterally Impaired Hip 4-/5 Knee 4/5 Ankle 4-/5 Coordination Assessment Gross Coordination Gross Coordination Impaired Assessment Finger to Nose Test Moderate Impairment Foot Tapping Test Moderate Impairment Sensation Assessment Sensation Gross Sensation Right LE Impaired,Left LE Impaired Proprioception (Position) Impaired M6 PT-IP Treatment Start: 08/16/22 09:11 Freq: NEEDED Status: Active Protocol: Document 08/16/22 14:08 AW (Rec: 08/16/22 14:41 AW [id number]) Physical Therapy Treatment Education Education Provided Safety M7 PT-IP Assessment and Plan Start: 08/16/22 09:11 Freq: NEEDED Status: Active Protocol: Document 08/16/22 14:08 AW (Rec: 08/16/22 14:41 AW [id number]) PT Summary Assessment and Plan Potential Rehabilitation Potential Fair Status of Condition at Evaluation Unstable Summary Impairments Pain,Strength,Balance, Coordination,Sensation, Cognition,Bed Mobility, Transfers,Gait,Activity Tolerance Assessment Summary Abdirashid is a 71yo man admitted with COPD exacerbation, NSTEMI , sepsis. PLOF: Pt lives at [facility] without facility assist except for some meals. He uses no AD in his apartment and either SPC or motorized scooter outside his apartment depending on distance. CLOF: Pt presents with impaired strength, coordination, proprioception, balance, and activity tolerance affecting his mobility. He is requiring min to mod assist with bed mobility and transfers using FWW. He will not be safe for return to independent living facility at this time and would benefit from SNF rehab to assist with his functional recovery. Goals Bed Mobility Goal Independent Transfer Goal Independent,Front Wheeled Walker Gait Goal Standby Assistance,Front Wheel Walker Gait Distance 100 Other Goals - improve transfers and gait to SBA with SPC Days to Meet Goals 10 Frequency of Treatment Frequency Of Treatment Once a Day Treatment Plan Physical Therapy Treatment Plan Bed Mobility Training,Transfer Training,Gait Training, Therapeutic Exercise,Balance Retraining,Discharge Planning, Hot or Cold Pack,Neuromuscular Re-ed Precautions Other Precautions falls risk Recommendations To Nursing Amount of Assist Needed 1 Person Assist,2 Person Assist Discharge Recommendations PT Discharge Recommendations SNF Rehab Equipment Needed for Home Before FWW? Discharge Transportation Needs at Discharge Wheelchair/Cabulance
--- NOTE | 2022-08-16 15:13 | CM.DPNOTE ---
Discharge Planning Note: Patient more interactive and cheerful today. Sister and niece at bedside much of day. Patient interacting with them, he tears up easily. He states he eventually wants to return to his independent living cottage at [facility]. We discussed the benefits of SNF rehab so he can get stronger and enable him to return. [facility] looking at referral (their 1st choice). Plan: Call [facility] tomorrow; when get closer to discharge-- DCP to initiate [employer] auth. Rosemary Day RN/DCP
[2022-08-16] MEDS: NOREPINEPHRINE BITARTRATE/D5W 4 MG/250 ML PLAST..BAG 15 MG IV (18:57)
--- NOTE | 2022-08-16 19:37 | PC.NURSE ---
Unable to back chart in MAR b/c previous bag completed when new bag was hung. 1407 Norepi decreased to 3mcg/min 1647 Norepi decreased to 2mcg/min 1716 Norepi on hold 1745 Norepi restarted and increased to 2mcg/min 1815 Norepi increased to 4mcg/min See correlating vitals flowsheet
--- NOTE | 2022-08-16 20:22 | PM.ICURNDS ---
- Date Patient Seen: 08/16/22 Time Patient Seen: 20:22 :: This patient was seen via real time interactive two-way audiovisual telecommunication. Note: Patient is off BiPAP this morning. Started on levophed and down to 2 mcg. On levofloaxacin and midodrine. Cont tirating down levophed to maintain MAP goal > 65.
--- NOTE | 2022-08-16 22:10 | PC.NURSE ---
Patient awake and alert unable to state day, but says he never knows the day. Able to say that he sleeps with lights on and feels much better then when he came in. Will continue to monitor for hypercapnea throughout shift.
[2022-08-17] VITALS (70 sets, daily range): BP systolic 77–134; BP diastolic 44–68; PULSE 77–101; RESP 14–34; TEMP 32–37.1; O2SAT 82–99
[2022-08-17] MEDS: ACETAMINOPHEN 325 MG TABLET 650 MG PO ×4 (01:45→21:01)
[2022-08-17] MEDS: ALBUTEROL/IPRATROPIUM 3 ML AMPUL INH ×4 (01:53→19:38)
[2022-08-17 04:57] LABS: Add Manual Diff / Slide Review NO; Basophils Absolute Auto 0 /uL (0-100); Basophils Percent Auto 0.2 % (0-2); Eosinophils Absolute Auto 400 /uL (0-450); Eosinophils Percent Auto 5.2 % (2-4); Hematocrit 34.8 % (41-53); Hemoglobin 11.5 g/dL (13.5-17.5); Lymphocytes Absolute Auto 900 /uL (1100-4500); Mean Corpuscular HGB Conc 33.1 % (30-36); Mean Corpuscular Hemoglobin 31.9 PG (26-34); Mean Corpuscular Volume 96.5 fL (80-100); Monocytes Absolute Auto 900 /uL (0-900); Monocytes Percent Auto 10.9 % (3-14); Neutrophils Absolute Auto 6000 /uL (1500-7000); Neutrophils Percent Auto 72.7 % (50-75); Platelet Count 110 X10^3/uL (150-400); Red Cell Distribution Width 14.4 % (11.6-14.8); White Blood Cell Count 8.3 X10^3/uL (4.5-11.0)
[2022-08-17 05:09] LABS: BUN Creatinine Ratio 28.1 (6-22); Blood Urea Nitrogen 16 mg/dL (9-20); Calcium 9.1 mg/dL (8.4-10.2); Carbon Dioxide 36 mmol/L (22-32); Chloride 87 mmol/L (98-107); Estimated Glomerular Filt Rate > 60 mL/min (>60); Glucose 102 mg/dL (80-110); HEMOLYSIS < 15 (0-50); Magnesium 1.7 mg/dL (1.6-2.3); Potassium 4.3 mmol/L (3.4-5.1); Sodium 127 mmol/L (137-145)
[2022-08-17] MEDS: levoFLOXacin 250 MG TABLET 750 MG PO (06:02)
[2022-08-17] MEDS: MIDODRINE HCL 5 MG TABLET 10 MG PO ×3 (06:02→18:24)
[2022-08-17] MEDS: BUDESONIDE 0.5 MG/2 ML NEB INH ×2 (06:15→19:38)
[2022-08-17] MEDS: FOLIC ACID 1 MG TABLET PO (08:55)
[2022-08-17] MEDS: guaiFENesin ER 600 MG TAB 1200 MG PO ×2 (08:55→21:01)
[2022-08-17] MEDS: THIAMINE 100 MG TABLET PO (08:55)
[2022-08-17] MEDS: ASPIRIN EC 81 MG TABLET PO (08:55)
[2022-08-17] MEDS: SENNOSIDES 8.6 MG TABLET PO ×2 (08:56→21:02)
[2022-08-17] MEDS: NICOTINE 14 PATCH 14 MG TOP (08:56)
[2022-08-17] MEDS: MULTIVITAMIN 1 TABLET 1 TAB PO (08:56)
[2022-08-17] MEDS: LIDOCAINE PATCH 1 EACH ADH..PATCH TOP (08:56)
[2022-08-17] MEDS: ENOXAPARIN 40 MG/0.4 ML SYRINGE SUBCUT (08:57)
--- NOTE | 2022-08-17 09:38 | P.PN_ITS ---
Subjective Subjective Date Patient Seen: 08/17/22 Interval history: Patient tearful today because he doesn't want to be a bother to anyone. He overall is feeling better. Rahel will come out today. Exam Vital Signs (past 8 hours): - 08/17/22 01:53 08/17/22 04:00 08/17/22 01:46 Temperature Pulse Rate 93 H 101 H Respiratory Rate 18 23 Blood Pressure Pulse Oximetry 93 92 Oxygen Delivery Method Nasal Cannula Nasal Cannula Oxygen Flow Rate 2 2 Fraction of Inspired Oxygen 28 08/17/22 01:46 08/17/22 02:00 08/17/22 02:00 Temperature Pulse Rate 93 H Respiratory Rate 15 Blood Pressure 127/58 L 87/54 L Pulse Oximetry 93 Oxygen Delivery Method Oxygen Flow Rate 2 2 2 Fraction of Inspired Oxygen 08/17/22 02:15 08/17/22 02:15 08/17/22 02:30 Temperature Pulse Rate 90 Respiratory Rate 17 Blood Pressure 94/51 L 99/55 L Pulse Oximetry 93 Oxygen Delivery Method Oxygen Flow Rate 2 2 2 Fraction of Inspired Oxygen 08/17/22 02:30 08/17/22 02:45 08/17/22 02:45 Temperature Pulse Rate 90 90 Respiratory Rate 18 17 Blood Pressure 105/55 L Pulse Oximetry 94 95 Oxygen Delivery Method Oxygen Flow Rate 2 2 2 Fraction of Inspired Oxygen 08/17/22 03:00 08/17/22 03:00 08/17/22 03:15 Temperature Pulse Rate 95 H Respiratory Rate 14 Blood Pressure 126/58 L 126/58 L Pulse Oximetry 94 Oxygen Delivery Method Oxygen Flow Rate 2 2 2 Fraction of Inspired Oxygen 08/17/22 03:15 08/17/22 03:30 08/17/22 03:30 Temperature Pulse Rate 101 H 101 H Respiratory Rate 15 16 Blood Pressure 129/60 Pulse Oximetry 94 94 Oxygen Delivery Method Oxygen Flow Rate 2 2 2 Fraction of Inspired Oxygen 08/17/22 03:45 08/17/22 03:45 08/17/22 04:01 Temperature 97.8 F Pulse Rate 97 H Respiratory Rate 15 Blood Pressure 117/54 L 111/55 L Pulse Oximetry 95 Oxygen Delivery Method Oxygen Flow Rate 2 2 2 Fraction of Inspired Oxygen 08/17/22 04:01 08/17/22 04:15 08/17/22 04:15 Temperature Pulse Rate 100 H 91 H Respiratory Rate 27 H 16 Blood Pressure 128/59 L Pulse Oximetry 82 L 95 Oxygen Delivery Method Oxygen Flow Rate 2 2 2 Fraction of Inspired Oxygen 08/17/22 04:30 08/17/22 04:30 08/17/22 04:45 Temperature Pulse Rate 90 Respiratory Rate 17 Blood Pressure 116/59 L 117/56 L Pulse Oximetry 95 Oxygen Delivery Method Oxygen Flow Rate 2 2 2 Fraction of Inspired Oxygen 08/17/22 04:45 08/17/22 05:00 08/17/22 05:00 Temperature Pulse Rate 88 81 Respiratory Rate 20 20 Blood Pressure 103/56 L Pulse Oximetry 95 95 Oxygen Delivery Method Oxygen Flow Rate 2 2 2 Fraction of Inspired Oxygen 08/17/22 05:16 08/17/22 05:16 08/17/22 06:15 Temperature Pulse Rate 81 79 Respiratory Rate 29 H 18 Blood Pressure 92/51 L Pulse Oximetry 96 98 Oxygen Delivery Method Nasal Cannula Oxygen Flow Rate 2 2 2 Fraction of Inspired Oxygen 28 08/17/22 05:30 08/17/22 05:30 08/17/22 05:45 Temperature Pulse Rate 81 Respiratory Rate 26 H Blood Pressure 117/55 L 110/55 L Pulse Oximetry 96 Oxygen Delivery Method Oxygen Flow Rate 2 2 2 Fraction of Inspired Oxygen 08/17/22 05:45 08/17/22 06:00 08/17/22 06:00 Temperature Pulse Rate 77 88 Respiratory Rate 14 24 Blood Pressure 119/62 Pulse Oximetry 98 98 Oxygen Delivery Method Oxygen Flow Rate 2 2 2 Fraction of Inspired Oxygen 08/17/22 06:15 08/17/22 06:15 08/17/22 06:30 Temperature Pulse Rate 82 Respiratory Rate 14 Blood Pressure 110/57 L 106/56 L Pulse Oximetry 97 Oxygen Delivery Method Oxygen Flow Rate 2 2 2 Fraction of Inspired Oxygen 08/17/22 06:30 08/17/22 06:45 08/17/22 06:45 Temperature Pulse Rate 81 80 Respiratory Rate 16 16 Blood Pressure 107/55 L Pulse Oximetry 98 99 Oxygen Delivery Method Oxygen Flow Rate 2 2 2 Fraction of Inspired Oxygen 08/17/22 07:00 08/17/22 07:00 08/17/22 07:15 Temperature Pulse Rate 86 Respiratory Rate 19 Blood Pressure 115/58 L 124/60 Pulse Oximetry 99 Oxygen Delivery Method Oxygen Flow Rate 2 2 2 Fraction of Inspired Oxygen 08/17/22 07:15 08/17/22 07:30 08/17/22 07:30 Temperature Pulse Rate 84 90 Respiratory Rate 18 16 Blood Pressure 130/60 Pulse Oximetry 97 96 Oxygen Delivery Method Oxygen Flow Rate 2 2 2 Fraction of Inspired Oxygen 08/17/22 07:33 08/17/22 07:45 08/17/22 07:45 Temperature Pulse Rate 92 H 92 H Respiratory Rate 15 14 Blood Pressure 124/60 Pulse Oximetry 95 96 Oxygen Delivery Method Oxygen Flow Rate 2 Fraction of Inspired Oxygen 08/17/22 08:00 08/17/22 08:00 08/17/22 08:46 Temperature 97.9 F Pulse Rate 92 H Respiratory Rate 15 Blood Pressure 128/62 Pulse Oximetry 96 Oxygen Delivery Method Oxygen Flow Rate Fraction of Inspired Oxygen Fraction of Inspired Oxygen 28 SaO2/FiO2 Ratio 350 Oxygen Delivery Method Nasal Cannula Oxygen Flow Rate 2 Narrative Exam Narrative: GEN:? Middle-aged male, Alert and oriented x 3, NAD HEENT:NC, Face symmetric CHEST: Respiratory excursions symmetric, diffuse expiratory wheezes bilaterally, diffusely diminished CV: RRR, no M/R/G ABD: Soft, NT/ND, BT present in all 4 quadrants, no organomegaly or masses EXTR: warm, well perfused, no C/C/E SKIN: warm and dry, no rash NEURO: Alert and oriented x 3, nonfocal Objective Labs 08/17/22 04:11 08/17/22 04:11 Labs: Laboratory Results - last 24 hr 08/16/22 08/17/22 08/17/22 13:05 04:11 04:11 WBC 8.3 RBC 3.60 L Hgb 11.5 L Hct 34.8 L MCV 96.5 MCH 31.9 MCHC 33.1 RDW 14.4 Plt Count 110 L Neut % (Auto) 72.7 Lymph % (Auto) 11.0 L [place] % (Auto) 10.9 Eos % (Auto) 5.2 H Baso % (Auto) 0.2 Neut # (Auto) 6000 Lymph # (Auto) 900 L [place] # (Auto) 900 Eos # (Auto) 400 Baso # (Auto) 0 Sodium 125 L 127 L Potassium 4.6 4.3 Chloride 83 L 87 L Carbon Dioxide 37 H 36 H BUN 18 16 Creatinine 0.64 L 0.57 L Estimated GFR > 60 > 60 BUN/Creatinine Ratio 28.1 H 28.1 H Glucose 143 H 102 Calcium 8.8 9.1 Magnesium 1.7 [facility] Medical History (Updated 08/16/22 @ 11:36 by Boris Arrington MD) Alcohol abuse Continuous tobacco abuse Emphysema lung Essential hypertension Surgical History (Updated 08/13/22 @ 05:41 [facility] History of hernia repair Family History Father Cancer Mother Emphysema of lung Social History household members: none Smoking Status: Current every day smoker alcohol intake: current Assessment & Plan Assessment & Plan narrative: 1. Acute hypoxic resp failure Pt developed resp acidosis on 08/15 and required narcan x 3 doses as well as BiPAP. Now improving and he is now on NC O2 at 2L. 2. COPD exac Productive cough improving per patient. Pt doesn't tolerate steroids (increased agitation/anxiety). Continues budesonide nebs, duonebs, finished Azithro x3 days, and Levaquin Day 3/5. Continues mucinex, flutter valve. 3. Hyponatremia, improving Sodium was 107 on August 12 at 8:20 p.m..? Up to 114 on August 13 at 4:33 a.m..? Increase to 118 on August 13 at 2:48 p.m..? Subsequently down to 113 after DDAVP and D5.? 08/14 rainged 118-121. 08/15, 08/08-08/09. This am, it was 122. Will liberalize fluid restriction given hypotension. Now up to 127. 4. Myocardial injury secondary to demand ischemia Continue aspirin therapy.? Echocardiogram was performed on 08/12 w/nl LV function, no WMA. Some expected right sided dysfunction.? Lipids are within normal limits with the exception of HDL which was high at 95. Given the minimal troponin elevation (max of 0.048), suspect this was demand ischemia related to hypoxia. 5. Alcohol dependence Restarted low dose libirum due to tremors and anxiety increased since stopping librium. Continue multivitamin and thiamine. 6. Tobacco dependence Recommend cessation.? Nicotine patch in place. 7. Acute on chronic mild malnutrition He does admit to poor appetite.? Will monitor nutritional intake. 8. Hypotension, improved Episode of significant prolonged hypotension on 08/15 which only briefly responded to fluid boluses requiring levophed. Lactate nl. No cardiac sxs. Stable Hgb. Hypotension was likely exacerbated by BiPAP. Midodrine added and levophed now weaned off. 9. Mild normocytic anemia Hemoglobin is stable at 12.1. 10. Thrombocytopenia Likely alcohol related.? Platelets were 166 on admission, darshan of 114. Now improved at 134. 11. Acute on chronic back pain Scheduled tylenol. Oxycodone d/c'd yesterday d/t resp acidosis and sedation. 12. Constipation Reports he has not had a bowel movement in 5 days.?Senna added 2 days ago. Will increase to BID. He is passing gas. If no BM this afternoon, will add MOM/dulcolax. Code status DNR/DNI Prophylaxis On Lovenox Disposition Per PT will need SNF. Time Spent With Patient Critical Care time: I spent a total of [] minutes of critical care time on this patient's care today; this time is exclusive of procedural time. Quality VTE Deep Vein Thrombosis/Pulmonary Embolism Present on Admission: No
--- NOTE | 2022-08-17 10:45 | PM.PN.EICU ---
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 CXR and BC neg for evidence of infection. 08/15 BP dropped and pt. given IVF and started on Levo drip. 08/16 Midodrine started. Recent events: Pt has been off BIPAP since yesterday. He has been off LEvophed drip since 9 am this morning. BP 90-100s/40-50s. Current Medications Current Medications Medications: Home Medications allopurinol 300 mg tablet 300 mg PO DAILY 08/13/22 [History Confirmed 08/13/22] fluticasone 500 mcg-salmeterol 50 mcg/dose blistr powdr for inhalation (Advair Diskus) 1 inh inhalation BID 08/13/22 [History Confirmed 08/13/22] indapamide 1.25 mg tablet 1.25 mg PO QAM 08/13/22 [History Confirmed 08/13/22] Visit Medications (administered) Generic Name Dose Route Start Last Admin Trade Name Freq PRN Reason Stop Dose Admin Acetaminophen 650 mg 08/15/22 20:00 08/17/22 08:58 Acetaminophen 325 Mg Tablet PO 650 mg Q6H AMY Administration Albuterol/Ipratropium 3 ml 08/12/22 22:59 08/17/22 01:53 Albuterol/Ipratropium 3 Ml Ampul INH 3 ml RTQ4HR PRN Administration Shortness Of Breath Or Wheezing Albuterol/Ipratropium 3 ml 08/15/22 11:00 08/17/22 06:15 Albuterol/Ipratropium 3 Ml Ampul INH 3 ml RTQID AMY Administration Aspirin 81 mg 08/13/22 09:00 08/17/22 08:55 Aspirin Ec 81 Mg Tablet PO 81 mg DAILY AMY Administration Budesonide 0.5 mg 08/15/22 20:00 08/17/22 06:15 Budesonide 0.5 Mg/2 Ml Neb INH 0.5 mg RTBID AMY Administration Enoxaparin Sodium 40 mg 08/13/22 09:00 08/17/22 08:57 Enoxaparin 40 Mg/0.4 Ml Syringe SUBCUT 40 mg DAILY AMY Administration Folic Acid 1 mg 08/14/22 13:45 08/17/22 08:55 Folic Acid 1 Mg Tablet PO 1 mg DAILY AMY Administration Guaifenesin 1,200 mg 08/15/22 10:30 08/17/22 08:55 Guaifenesin Er 600 Mg Tab PO 1,200 mg BID AMY Administration NOREPINEPHRINE BITARTRATE/D5W 4 mg in 250 mls @ 30 mls/hr 08/15/22 17:00 08/17/22 01:05 Levophed IV 0.5 mcg/min TITRATE AMY 1.875 mls/hr Titration Protocol 8 MCG/MIN Levofloxacin 750 mg 08/15/22 16:11 08/17/22 06:02 Levofloxacin 250 Mg Tablet PO 08/20/22 16:10 750 mg 0700 AMY Administration Lidocaine 1 each 08/13/22 09:00 08/17/22 08:56 Lidocaine Patch 1 Each Adh..Patch TOP 1 each DAILY AMY Administration Lidocaine 1 each 08/14/22 21:00 08/16/22 20:07 Remove Lidocaine Patch TOP Not Given BEDTIME AMY Midodrine 10 mg 08/16/22 12:00 08/17/22 06:02 Midodrine Hcl 5 Mg Tablet PO 10 mg 0600,1200,1800 AMY Administration Multivitamins 1 tab 08/14/22 10:45 08/17/22 08:56 Multivitamin 1 Tablet PO 1 tab DAILY AMY Administration Naloxone HCl 0.2 mg 08/12/22 23:07 08/15/22 16:04 Naloxone 0.4 Mg/Ml Vial IV 0.2 mg Q2MIN PRN Administration Opiate Reversal Nicotine 14 mg 08/13/22 09:00 08/17/22 08:56 Nicotine 14 Patch TOP 14 mg DAILY AMY Administration Sennosides 8.6 mg 08/16/22 09:00 08/17/22 08:56 Sennosides 8.6 Mg Tablet PO 8.6 mg BID AMY Administration Thiamine HCl 100 mg 08/14/22 10:45 08/17/22 08:55 Thiamine 100 Mg Tablet PO 100 mg DAILY AMY Administration Objective Ventilator Parameters: Ventilator Settings FiO2 0.35 Labs 08/17/22 04:11 08/17/22 04:11 Labs: Laboratory Results - last 24 hr 08/16/22 08/17/22 08/17/22 13:05 04:11 04:11 WBC 8.3 RBC 3.60 L Hgb 11.5 L Hct 34.8 L MCV 96.5 MCH 31.9 MCHC 33.1 RDW 14.4 Plt Count 110 L Neut % (Auto) 72.7 Lymph % (Auto) 11.0 L Meigs % (Auto) 10.9 Eos % (Auto) 5.2 H Baso % (Auto) 0.2 Neut # (Auto) 6000 Lymph # (Auto) 900 L Meigs # (Auto) 900 Eos # (Auto) 400 Baso # (Auto) 0 Sodium 125 L 127 L Potassium 4.6 4.3 Chloride 83 L 87 L Carbon Dioxide 37 H 36 H BUN 18 16 Creatinine 0.64 L 0.57 L Estimated GFR > 60 > 60 BUN/Creatinine Ratio 28.1 H 28.1 H Glucose 143 H 102 Calcium 8.8 9.1 Magnesium 1.7 Exam Vital Signs (past 8 hours): - 08/17/22 04:00 08/17/22 03:00 08/17/22 03:00 Temperature Pulse Rate 95 H Respiratory Rate 14 Blood Pressure 126/58 L Pulse Oximetry 94 Oxygen Delivery Method Nasal Cannula Oxygen Flow Rate 2 2 Fraction of Inspired Oxygen 08/17/22 03:15 08/17/22 03:15 08/17/22 03:30 Temperature Pulse Rate 101 H Respiratory Rate 15 Blood Pressure 126/58 L 129/60 Pulse Oximetry 94 Oxygen Delivery Method Oxygen Flow Rate 2 2 2 Fraction of Inspired Oxygen 08/17/22 03:30 08/17/22 03:45 08/17/22 03:45 Temperature Pulse Rate 101 H 97 H Respiratory Rate 16 15 Blood Pressure 117/54 L Pulse Oximetry 94 95 Oxygen Delivery Method Oxygen Flow Rate 2 2 2 Fraction of Inspired Oxygen 08/17/22 04:01 08/17/22 04:01 08/17/22 04:15 Temperature 97.8 F Pulse Rate 100 H Respiratory Rate 27 H Blood Pressure 111/55 L 128/59 L Pulse Oximetry 82 L Oxygen Delivery Method Oxygen Flow Rate 2 2 2 Fraction of Inspired Oxygen 08/17/22 04:15 08/17/22 04:30 08/17/22 04:30 Temperature Pulse Rate 91 H 90 Respiratory Rate 16 17 Blood Pressure 116/59 L Pulse Oximetry 95 95 Oxygen Delivery Method Oxygen Flow Rate 2 2 2 Fraction of Inspired Oxygen 08/17/22 04:45 08/17/22 04:45 08/17/22 05:00 Temperature Pulse Rate 88 81 Respiratory Rate 20 20 Blood Pressure 117/56 L Pulse Oximetry 95 95 Oxygen Delivery Method Oxygen Flow Rate 2 2 2 Fraction of Inspired Oxygen 08/17/22 05:00 08/17/22 05:16 08/17/22 05:16 Temperature Pulse Rate 81 Respiratory Rate 29 H Blood Pressure 103/56 L 92/51 L Pulse Oximetry 96 Oxygen Delivery Method Oxygen Flow Rate 2 2 2 Fraction of Inspired Oxygen 08/17/22 06:15 08/17/22 05:30 08/17/22 05:30 Temperature Pulse Rate 79 81 Respiratory Rate 18 26 H Blood Pressure 117/55 L Pulse Oximetry 98 96 Oxygen Delivery Method Nasal Cannula Oxygen Flow Rate 2 2 2 Fraction of Inspired Oxygen 08/17/22 05:45 08/17/22 05:45 08/17/22 06:00 Temperature Pulse Rate 77 Respiratory Rate 14 Blood Pressure 110/55 L 119/62 Pulse Oximetry 98 Oxygen Delivery Method Oxygen Flow Rate 2 2 2 Fraction of Inspired Oxygen 08/17/22 06:00 08/17/22 06:15 08/17/22 06:15 Temperature Pulse Rate 88 82 Respiratory Rate 24 14 Blood Pressure 110/57 L Pulse Oximetry 98 97 Oxygen Delivery Method Oxygen Flow Rate 2 2 2 Fraction of Inspired Oxygen 08/17/22 06:30 08/17/22 06:30 08/17/22 06:45 Temperature Pulse Rate 81 Respiratory Rate 16 Blood Pressure 106/56 L 107/55 L Pulse Oximetry 98 Oxygen Delivery Method Oxygen Flow Rate 2 2 2 Fraction of Inspired Oxygen 08/17/22 06:45 08/17/22 07:00 08/17/22 07:00 Temperature Pulse Rate 80 86 Respiratory Rate 16 19 Blood Pressure 115/58 L Pulse Oximetry 99 99 Oxygen Delivery Method Oxygen Flow Rate 2 2 2 Fraction of Inspired Oxygen 08/17/22 07:15 08/17/22 07:15 08/17/22 07:30 Temperature Pulse Rate 84 Respiratory Rate 18 Blood Pressure 124/60 130/60 Pulse Oximetry 97 Oxygen Delivery Method Oxygen Flow Rate 2 2 2 Fraction of Inspired Oxygen 08/17/22 07:30 08/17/22 07:33 08/17/22 07:45 Temperature Pulse Rate 90 92 H Respiratory Rate 16 15 Blood Pressure 124/60 Pulse Oximetry 96 95 Oxygen Delivery Method Oxygen Flow Rate 2 2 Fraction of Inspired Oxygen 08/17/22 07:45 08/17/22 08:00 08/17/22 08:00 Temperature Pulse Rate 92 H 92 H Respiratory Rate 14 15 Blood Pressure 128/62 Pulse Oximetry 96 96 Oxygen Delivery Method Oxygen Flow Rate Fraction of Inspired Oxygen 08/17/22 08:46 08/17/22 08:00 Temperature 97.9 F Pulse Rate Respiratory Rate Blood Pressure Pulse Oximetry Oxygen Delivery Method Room Air Nasal Cannula Oxygen Flow Rate Fraction of Inspired Oxygen Fraction of Inspired Oxygen 28 SaO2/FiO2 Ratio 350 Oxygen Delivery Method Room Air,Nasal Cannula Oxygen Flow Rate 2 Narrative Exam Narrative: Patient seen through two way audio visual system. He is alert, calm, sitting up in bed and talking on phone. 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 CV: -continue midodrine 10 mg TID for BP support -will give fluid bolus NS to see if it will help with BP pressure as patient is 2.8L net neg since admission Pulm: -check ABG if patient shows any signs of respiraotry distress or increased somnolence -BIPAP as needed for increased CO2 retention -pt. not on systemic steroids as he has history of agitation with it -continue Budesonide ID: complete 5 day course of Levaquin for COPD exacerbation/bronchitis? Heme: hgb and plt slightly on low side by relatively stable (secondary to ETOH abuse?) FEn/Renal: Na has been slowly trending up over last 5 days -recheck BMP after fluid bolus -replace mag PPx: lovenox Time Spent With Patient Critical Care time: I spent a total of [40] minutes of critical care time on this patient's care today; this time is exclusive of procedural time.
[2022-08-17] MEDS: SODIUM CHLORIDE 0.9% 500 ML 1000 ML IV (11:20)
--- NOTE | 2022-08-17 11:21 | RT ---
INCREASED LETHARGY NOTED. PT PLACED BACK ON BIPAP. IPAP DECREASED TO 20. PT TOLERATING BIPAP WELL. RN UPDATED.
[2022-08-17] MEDS: MAGNESIUM CHLORIDE 64 MG TABLET 128 MG PO (11:53)
[2022-08-17] MEDS: MAGNESIUM SULFATE 2 GM/50 ML PIGGYBACK IV (12:06)
--- NOTE | 2022-08-17 12:44 | PT-IP ANOTE ---
Pt unavailable, getting a respiratory therapy treatment right now til potentially 1330 per pt and nursing feedback. COMB TENDER will return approx 1445.
--- NOTE | 2022-08-17 15:32 | PT.IPTN ---
Current Diagnoses Hypo-osmolality and hyponatremia (08/12/22) Alcohol abuse, uncomplicated (08/12/22) Chronic obstructive pulmonary disease with (acute) exacerbation (08/12/22) Shock, unspecified (08/12/22) Physical Therapy Treatment Note M2 PT-IP Current Condition Start: 08/16/22 09:11 Freq: NEEDED Status: Active Protocol: Document 08/17/22 15:15 SP (Rec: 08/17/22 16:56 SP [id number]) Physical Therapy Current Condition Current Condition Evaluation Date 08/16/22 Treatment Diagnosis sepsis, COPD exacerbation, NSTEMI, impaired mobility Onset Date 08/12/22 M3 PT-IP Subjective Start: 08/16/22 09:11 Freq: NEEDED Status: Active Protocol: Document 08/17/22 15:15 SP (Rec: 08/17/22 16:56 SP [id number]) Subjective Physical Therapy Visit Type Type Treatment Note Visit Start Time 15:15 Visit Stop Time 15:32 Total Visit Minutes 17 Notes Co Tx with OT for standing mobility during ADLs. *see OT notes for Vitals taken during tx. 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 M4 PT-IP Mobility and Gait Start: 08/16/22 09:11 Freq: NEEDED Status: Active Protocol: Document 08/17/22 15:15 SP (Rec: 08/17/22 16:56 SP [id number]) PT-Transfer Assessment Sit to and From Stand Sit to and from Stand Minimal Assistance,Moderate Assistance,2 Person Assistance ,Use of Upper Extremities Equipment Transfer Assistive Device Gait Belt,Front Wheeled Walker Orthotic/Prosthetic Devices or Brace: No Transfers Transfer Destination Chair Transfer Technique ambulated w/ FWW, chair follow Transfer Ability Level of Assist Minimal Assistance,Moderate Assistance,2 Person Assistance ,Use of Upper Extremities Comments Mobility Comments Pt standing with OT front of chair, noted unsteady BUE/BLEs with support of FWW. Pt and OT agreeable to progression assessment in gait w/chair follow while providing Min/Mod A x2 and support for FWW advancement and O2 line mgt. Pt required intermittent cues for upright posturing over SISI like balancing a book on your head, glut and rhomboid facilitation to allow improvement in stability and noted lessening of BUE/ BLE shakiness, progressed 15 ft with heavy BUE support on FWW and unsteady LE advancement but improved with cues. Pt reequired seated rest at sink to recover breath and decreased activity tolerance. STS cues for push from chair arm RUE/FWW LUE hip hinge forward glut fac come to stand , completed marching Mod heavy BUE on FWW x8 reps then pivot 180 deg and walk back to chair 15 ft inside door on R Min/Mod A x2. Min/Mod A x1-2 sit in chair due to only 1 UE support on chair and decrease LE strength to complete slow descend due to no carryover reach back to sit. STS with cues proper hand placement and reach back BUE with decrease to Min Ax1-2. OT took over rest of tx care. Gait Assessment Gait Gait Assistance Required: Moderate Assistance,2 Person Assist Distance (Feet) 15 Assistive Devices Assistive Device Gait Belt,Front Wheeled Walker Orthotic/Prosthetic Devices or Brace: No Gait Deviations General Gait Pattern Antalgic,Ataxic,Decreased Stride Length,Decreased Feet Clearance,Flexed Trunk,Lateral Trunk Lean,Step-to Gait Factors Limiting Gait Function Factors Limiting Gait Function Decreased Activity Tolerance, Decreased Strength, Incoordination,Pain,Poor Balance,Poor Safety Awareness Comments Gait Comments see mobility comments Stair Climbing Assessment Comments Stair Climbing Comments no stairs need to assess PT-Balance Assessment Sitting Balance and Reactions Static Sitting Balance Ability Good Dynamic Sitting Balance Ability Fair Standing Balance and Reactions Static Standing Balance Ability Fair Dynamic Standing Balance Ability Poor Device Used FWW M5 PT-IP Objective Assessments Start: 08/16/22 09:11 Freq: NEEDED Status: Active Protocol: Document 08/16/22 14:08 AW (Rec: 08/16/22 14:41 AW [id number]) Orientation Orientation/Cognition Level of Alertness Confusional State Orientation Name,Year,Place,Situation Comments Pt needing extra processing time receptively and expressively. Gross Range of Motion Lower Extremity ROM Assessment Within Functional Limits Strength Lower Extremity Strength Assessment Bilaterally Impaired Hip 4-/5 Knee 4/5 Ankle 4-/5 Coordination Assessment Gross Coordination Gross Coordination Impaired Assessment Finger to Nose Test Moderate Impairment Foot Tapping Test Moderate Impairment Sensation Assessment Sensation Gross Sensation Right LE Impaired,Left LE Impaired Proprioception (Position) Impaired M6 PT-IP Treatment Start: 08/16/22 09:11 Freq: NEEDED Status: Active Protocol: Document 08/17/22 15:15 SP (Rec: 08/17/22 16:56 SP [id number]) Physical Therapy Treatment Education Education Provided Safety Other Treatments Other Treatment Performed Instructed standing: glut and rhomboid engagement stand, september front sink pre gait back to chair, Min/Mod A x2 w/ FWW , chair behind for safety. M7 PT-IP Assessment and Plan Start: 08/16/22 09:11 Freq: NEEDED Status: Active Protocol: Document 08/17/22 15:15 SP (Rec: 08/17/22 16:56 SP [id number]) PT Summary Assessment and Plan Potential Rehabilitation Potential Fair Status of Condition at Evaluation Unstable Summary Impairments Pain,Strength,Balance, Coordination,Sensation, Cognition,Bed Mobility, Transfers,Gait,Activity Tolerance Progress Towards Goals Slow Progress due to Activity Tolerance Assessment Summary Pt mod A x2 sit<>stand, transfers and gait w/ FWW chair follow. Pt will require SNF for progress strength and functional mobility independence. Will continue to assess progress. Goals Bed Mobility Goal Independent Transfer Goal Independent,Front Wheeled Walker Gait Goal Standby Assistance,Front Wheel Walker Gait Distance 100 Other Goals - improve transfers and gait to SBA with SPC Days to Meet Goals 10 Frequency of Treatment Frequency Of Treatment Once a Day Treatment Plan Physical Therapy Treatment Plan Bed Mobility Training,Transfer Training,Gait Training, Therapeutic Exercise,Balance Retraining,Discharge Planning, Hot or Cold Pack,Neuromuscular Re-ed Other Recommendations and Next Treatment Le ex pre mobility, bed mob, Focus transfers and gait w/ FWW, chair follow for safety. Precautions Other Precautions falls risk Recommendations To Nursing Amount of Assist Needed 2 Person Assist Discharge Recommendations PT Discharge Recommendations SNF Rehab Equipment Needed for Home Before FWW? Discharge Transportation Needs at Discharge Wheelchair/Cabulance
--- NOTE | 2022-08-17 15:38 | OT.IP.EVAL ---
Current Diagnoses Hypo-osmolality and hyponatremia (08/12/22) Alcohol abuse, uncomplicated (08/12/22) Chronic obstructive pulmonary disease with (acute) exacerbation (08/12/22) Shock, unspecified (08/12/22) Past Medical History (Last Updated 08/13/22 @ 05:41 by [facility]) Alcohol abuse Continuous tobacco abuse Emphysema lung Essential hypertension Surgical History (Last Updated 08/13/22 @ 05:41 by KATHY Salguero) History of hernia repair Occupational Therapy Inpatient Evaluation/Re-Eval M1 PT/OT-IP Prior Functional Status Start: 08/16/22 09:11 Freq: NEEDED Status: Active Protocol: Document 08/17/22 15:41 CGR (Rec: 08/17/22 15:58 CGR [id number]) Medical Review Prior Functional Status Medical History Reviewed Yes Communication Pt is able to make his needs known Mobility and Gait Pt states he can get around his apartment without AD. When he leaves home, he uses a SPC for short distances with a limit of 1/2-1 block due to SOB and LBP. For longer distances, he uses a motorized scooter/trike. Activities of Daily Living and IADL's Pt states he manages ADL's, medications, and finances independently. He states he drives but family in the room state pt does not drive. Pt states he gets around on a scooter. Prior Functional Level (Other details) Pt has COPD but does has never used home O2. Pt lives at [facility] Social History Household Members none Living Arrangements Assisted Living Home Environment Standard Height Toilet,Walk in Shower,Built-In Shower Seat Home Equipment Four Wheel Walker,Straight Cane,Power Wheelchair/Scooter, Hand Held Shower,Grab Bars In Shower Employment Status Retired Additional Social History Comment Pt has lived at [facility] for ~2 years. He has a supportive sister, Toña, as well as neice and nephew. M2 OT-IP Current Condition Start: 08/17/22 15:41 Freq: Status: Active Protocol: Document 08/17/22 15:41 CGR (Rec: 08/17/22 15:58 CGR [id number]) Occupational Therapy Current Condition Current Condition Evaluation Date 01/30/23 Treatment Diagnosis COPD exacerbation Diagnosis Onset Date 08/12/22 M3 OT- IP Subjective and Pain Start: 08/17/22 15:41 Freq: Status: Active Protocol: Document 08/17/22 15:41 CGR (Rec: 08/17/22 15:58 CGR [id number]) OT- Subjective Occupational Therapy Visit Type Type Initial Evaluation Visit Start Time 15:08 Visit Stop Time 15:38 Total Visit Minutes 30 Notes Partial co-treat with P.T.A. Occupational Therapy Visit Comments Patient Comments I don't want to be a burden on anyone. OT Pain Assessment Pain When Pain Assessed At Rest Pain Present Pain Present Denied Pain M4 OT- IP ADL's Start: 08/17/22 15:41 Freq: Status: Active Protocol: Document 08/17/22 15:41 CGR (Rec: 08/17/22 15:58 CGR [id number]) OT [id number] Comments OT Self-Feeding Comments not meal time but pt states that he is able to feed himself at lunch today without difficulty but that he takes a long time to eat. OT ADL-Grooming General Evaluation Grooming Ability Standby Assistance Areas Needing Assistance Face Washing Comments OT Grooming Comments standing at sink OT ADL-Oral Care Comments Oral Care Comments not performed, pt stated he just performed OT ADL-Dressing Comments OT Dressing Comments not performed OT ADL-Toileting General Evaluation Toileting Ability Total Assistance Comments OT Toileting Comments pt with april OT ADL-Bathing Comments OT Bathing Comments not performed M5 OT- IP IADL's Start: 08/17/22 15:41 Freq: Status: Active Protocol: Document 08/17/22 15:41 CGR (Rec: 08/17/22 15:58 CGR [id number]) OT-Instrumental Activities of Daily Living Deficits IADL Deficits Identified No Deficits Home Safety Awareness Awareness of Need for Assistance at Home Good Awareness Ability to Problem Solve Emergency Able to Problem Solve Situations Medication Management Medication Management No Deficits Identified Money Management Money Management No Deficits Identified Meal Preparation Meal Preparation No Deficits Identified Ornamental Rail Installer 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 M6 OT- IP Functional Cognition Start: 08/17/22 15:41 Freq: Status: Active Protocol: Document 08/17/22 15:41 CGR (Rec: 08/17/22 15:58 CGR [id number]) Cognitive Factors Limiting Selfcare Function Cognitive Ability Level of Alertness Alert Patient Orientation Name,Age,Birthday,Month,Date, Year,Day of Week,Place, Situation Attention Span Ability Capable of Focused Attention, Capable of Sustained Attention Ability to Follow Commands Able to Follow One Step Commands with Increased Time, Able to Follow One Step Commands with Repetition OT- Vision and Hearing OT- Hearing Assessment OT- Hearing Assessment WFL OT- Vision Assessment Visual Acuity WFL Visual Attentiveness WFL Occular Pursuits WFL Visual Convergence WFL M7 OT- IP Mobility and Balance Start: 08/17/22 15:41 Freq: Status: Active Protocol: Document 08/17/22 15:41 CGR (Rec: 08/17/22 15:58 CGR [id number]) OT-Transfer Assessment Sit to and From Stand Sit to and from Stand Minimal Assistance,1 Person Assistance,2 Person Assistance Transfers Transfer Ability Minimal Assistance,1 Person Assistance,2 Person Assistance Technique Transfer Destination Chair Transfer Technique Stand Step Pivot Devices Transfer Assistive Devices Gait Belt,Front Wheeled Walker Comments Mobility Comments Pt stood from chair with min a but initially had significant body shaking with standing. It improved with standing and verbal cues to squeeze his buttox. INFORMATION MANAGEMENT SPECIALIST then entered and assisted with ambulating to the sink ~12 feet before a seated rest break. Pt then stood for washing face and ambulated back ~12 feet to sit in chair. OT- Gait Assessment Gait Gait Assistance Required: Minimum Assistance,1 Person Assist,2 Person Assist Assistive Devices Assistive Device Gait Belt,Front Wheeled Walker Comments Gait Ability Comments mobility around the room as stated above. OT- Balance Assessment Sitting Balance and Reactions Static Sitting Balance Ability Good Dynamic Sitting Balance Ability Good M8 OT- IP Objective Assessments Start: 08/17/22 15:41 Freq: Status: Active Protocol: Document 08/17/22 15:41 CGR (Rec: 08/17/22 15:58 CGR [id number]) OT Gross Range of Motion Upper Extremity Range of Motion Assessment Within Functional Limits OT Strength Upper Extremity Strength Assessment Within Functional Limits Comments Strength Comments grossly 4+/5 to 5/5 OT- Coordination Assessment Upper Extremity Finger to Nose Test Within Functional Limits Finger Tapping Test Within Functional Limits Comments Coordination Comments but with slow movements. OT-Muscle Tone Assessment Muscle Tone WNL Yes OT Sensation Assessment Edema Edema Absent M9 OT- IP Assessment and Plan Start: 08/17/22 15:41 Freq: Status: Active Protocol: Document 08/17/22 15:41 CGR (Rec: 08/17/22 15:58 CGR [id number]) OT Summary Assessment and Plan Potential Rehabilitation Potential Excellent Analytic Complexity at Evaluation Moderate Summary OT Impairments Balance,Functional Mobility, Grooming,Dressing,Toileting, Bathing,Toilet Transfers, Shower Transfers,Activity Tolerance Progress Towards Goals Progressing Toward Goals Assessment Summary Pt presents as a moderate complexity evaluation s/p admit for SOB. Pt has been ICU status and today is improved. Pt presents today with shakiness with movement requiring 1-2 person assist for mobility. Pt's UE are strong as noted above but pt overall appears to be fatigued quickly. Pt will benefit from SNF upon discharge but states that he would like to go home . Recommend continued therapy services while hospitalized. Goals Self-Feeding Goal Independent Grooming Goal Independent Dressing Goal Independent Toileting Goal Independent Bathing Goal Independent Toilet Transfer Goal Independent Shower Transfer Goal Independent Days to Meet Goals 20 Frequency of Treatment Frequency Of Treatment Once a Day Treatment Plan OT Treatment Plan ADL Training,Functional Mobility,Patient/Family Education,Discharge Planning Other Treatment Recommendations and Next ADLs standing, shower if able. Treatment Focus Discharge Recommendations OT Discharge Recommendations SNF Rehab Transportation Needs at Discharge Wheelchair/Cabulance
--- NOTE | 2022-08-17 15:50 | CM.DPNOTE ---
Discharge Planning Note: Spoke with [facility], they do not accept [place]. [facility] and [facility] are still looking at and have beds (Niece and sister picked these two SNFs). Once acceptance, will need [place] Auth. Plan: Follow up with SNFs. Call family to update (I had left VM, they have concern re if any Covid cases at SNFs) no Covid cases at [facility] and only a few at [facility], almost off iso). Initiate [place] Auth. Lyric Day RN/DCP.
[2022-08-17] MEDS: chlordiazePOXIDE 10 MG CAPSULE PO ×2 (18:24→21:02)
[2022-08-17 21:29] LABS: BUN Creatinine Ratio 30.9 (6-22); Blood Urea Nitrogen 17 mg/dL (9-20); Carbon Dioxide 36 mmol/L (22-32); Chloride 86 mmol/L (98-107); Estimated Glomerular Filt Rate > 60 mL/min (>60); Glucose 101 mg/dL (80-110); HEMOLYSIS < 15 (0-50); Potassium 4.4 mmol/L (3.4-5.1); Sodium 126 mmol/L (137-145)
[2022-08-18] VITALS (9 sets, daily range): BP systolic 96–134; BP diastolic 53–60; PULSE 81–103; RESP 16–23; TEMP 36.6–37.1; O2SAT 90–96
--- NOTE | 2022-08-18 04:16 | PC.NURSE ---
Patient more alert and independent than previous shifts. Able to void without difficulty post catheter removal.
[2022-08-18 05:27] LABS: Magnesium 1.9 mg/dL (1.6-2.3)
[2022-08-18] MEDS: MIDODRINE HCL 5 MG TABLET 10 MG PO ×3 (06:06→17:32)
[2022-08-18] MEDS: levoFLOXacin 250 MG TABLET 750 MG PO (06:07)
[2022-08-18] MEDS: ALBUTEROL/IPRATROPIUM 3 ML AMPUL INH ×2 (07:54→17:43)
[2022-08-18] MEDS: BUDESONIDE 0.5 MG/2 ML NEB INH ×2 (07:55→19:41)
[2022-08-18] MEDS: ENOXAPARIN 40 MG/0.4 ML SYRINGE SUBCUT (08:32)
[2022-08-18] MEDS: NICOTINE 14 PATCH 14 MG TOP (08:32)
[2022-08-18] MEDS: MULTIVITAMIN 1 TABLET 1 TAB PO (08:33)
[2022-08-18] MEDS: FOLIC ACID 1 MG TABLET PO (08:33)
[2022-08-18] MEDS: ACETAMINOPHEN 325 MG TABLET 650 MG PO ×3 (08:33→20:23)
[2022-08-18] MEDS: ASPIRIN EC 81 MG TABLET PO (08:33)
[2022-08-18] MEDS: SENNOSIDES 8.6 MG TABLET PO ×2 (08:33→20:24)
[2022-08-18] MEDS: chlordiazePOXIDE 10 MG CAPSULE PO ×3 (08:33→20:24)
[2022-08-18] MEDS: guaiFENesin ER 600 MG TAB 1200 MG PO ×2 (08:34→20:20)
[2022-08-18] MEDS: THIAMINE 100 MG TABLET PO (08:34)
[2022-08-18] MEDS: LIDOCAINE PATCH 1 EACH ADH..PATCH TOP (08:34)
[2022-08-18] MEDS: SODIUM CHLORIDE 1,000 MG TABLET 1000 MG PO ×2 (08:34→20:24)
[2022-08-18 08:41] LABS: Add Manual Diff / Slide Review NO; Basophils Absolute Auto 0 /uL (0-100); Basophils Percent Auto 0.4 % (0-2); Eosinophils Absolute Auto 800 /uL (0-450); Eosinophils Percent Auto 12.2 % (2-4); Hematocrit 33.7 % (41-53); Hemoglobin 11.4 g/dL (13.5-17.5); Lymphocytes Absolute Auto 900 /uL (1100-4500); Lymphocytes Percent Auto 14.2 % (25-40); Mean Corpuscular HGB Conc 33.7 % (30-36); Mean Corpuscular Volume 94.9 fL (80-100); Monocytes Absolute Auto 800 /uL (0-900); Monocytes Percent Auto 12.9 % (3-14); Neutrophils Absolute Auto 3800 /uL (1500-7000); Neutrophils Percent Auto 60.3 % (50-75); Platelet Count 144 X10^3/uL (150-400); Red Blood Cell Count 3.55 X10^6/uL (4.5-5.9); Red Cell Distribution Width 14.4 % (11.6-14.8); White Blood Cell Count 6.3 X10^3/uL (4.5-11.0)
[2022-08-18 08:53] LABS: BUN Creatinine Ratio 28.8 (6-22); Blood Urea Nitrogen 15 mg/dL (9-20); Calcium 9.2 mg/dL (8.4-10.2); Carbon Dioxide 34 mmol/L (22-32); Chloride 87 mmol/L (98-107); Estimated Glomerular Filt Rate > 60 mL/min (>60); Glucose 86 mg/dL (80-110); HEMOLYSIS < 15 (0-50); Potassium 4.4 mmol/L (3.4-5.1); Sodium 127 mmol/L (137-145)
--- NOTE | 2022-08-18 09:11 | PM.PN.EICU ---
Subjective Subjective IF CAMERA ACTIVATED, patient seen via real-time interactive audiovisual communication: Camera activated Consent obtained for tele-information assurance engineer care: Yes Patient Location: ICU Provider location (State): [place] Other participants/roles: RN Interval history: Patient Summary:? 71 yo Man with PMH of COPD with chronic CO2 retention and ETOH abuse in ICU for respiratory failure secondary to COPD exacerbation and Hyponatremia. CXR and BC neg for evidence of infection.? 08/15 BP dropped and pt. given IVF and started on Levo drip. 08/16 Midodrine started. Recent events: Yesterday patient required going back on BIPAP for a few hours as RT felt patient's mental status had changed a bit. He then improved and has remained off BIPAP since. Pt. remains off Levophed drip. BP's are 90-110s/50's. Na today is 127. Current Medications Current Medications Medications: Home Medications allopurinol 300 mg tablet 300 mg PO DAILY 08/13/22 [History Confirmed 08/13/22] fluticasone 500 mcg-salmeterol 50 mcg/dose blistr powdr for inhalation (Advair Diskus) 1 inh inhalation BID 08/13/22 [History Confirmed 08/13/22] indapamide 1.25 mg tablet 1.25 mg PO QAM 08/13/22 [History Confirmed 08/13/22] Visit Medications (administered) Generic Name Dose Route Start Last Admin Trade Name Freq PRN Reason Stop Dose Admin Acetaminophen 650 mg 08/15/22 20:00 08/18/22 08:33 Acetaminophen 325 Mg Tablet PO 650 mg Q6H AMY Administration Albuterol/Ipratropium 3 ml 08/12/22 22:59 08/17/22 01:53 Albuterol/Ipratropium 3 Ml Ampul INH 3 ml RTQ4HR PRN Administration Shortness Of Breath Or Wheezing Aspirin 81 mg 08/13/22 09:00 08/18/22 08:33 Aspirin Ec 81 Mg Tablet PO 81 mg DAILY AMY Administration Budesonide 0.5 mg 08/15/22 20:00 08/18/22 07:55 Budesonide 0.5 Mg/2 Ml Neb INH 0.5 mg RTBID AMY Administration Chlordiazepoxide HCl 10 mg 08/17/22 16:45 08/18/22 08:33 Chlordiazepoxide 10 Mg Capsule PO 10 mg TID AMY Administration Enoxaparin Sodium 40 mg 08/13/22 09:00 08/18/22 08:32 Enoxaparin 40 Mg/0.4 Ml Syringe SUBCUT 40 mg DAILY AMY Administration Folic Acid 1 mg 08/14/22 13:45 08/18/22 08:33 Folic Acid 1 Mg Tablet PO 1 mg DAILY AMY Administration Guaifenesin 1,200 mg 08/15/22 10:30 08/18/22 08:34 Guaifenesin Er 600 Mg Tab PO 1,200 mg BID AMY Administration Levofloxacin 750 mg 08/15/22 16:11 08/18/22 06:07 Levofloxacin 250 Mg Tablet PO 08/20/22 16:10 750 mg 0700 AMY Administration Lidocaine 1 each 08/13/22 09:00 08/18/22 08:34 Lidocaine Patch 1 Each Adh..Patch TOP 1 each DAILY AMY Administration Lidocaine 1 each 08/14/22 21:00 08/17/22 21:05 Remove Lidocaine Patch TOP 1 each BEDTIME AMY Administration Midodrine 10 mg 08/16/22 12:00 08/18/22 06:06 Midodrine Hcl 5 Mg Tablet PO 10 mg 0600,1200,1800 AMY Administration Multivitamins 1 tab 08/14/22 10:45 08/18/22 08:33 Multivitamin 1 Tablet PO 1 tab DAILY AMY Administration Naloxone HCl 0.2 mg 08/12/22 23:07 08/15/22 16:04 Naloxone 0.4 Mg/Ml Vial IV 0.2 mg Q2MIN PRN Administration Opiate Reversal Nicotine 14 mg 08/13/22 09:00 08/18/22 08:32 Nicotine 14 Patch TOP 14 mg DAILY AMY Administration Sennosides 8.6 mg 08/16/22 09:00 08/18/22 08:33 Sennosides 8.6 Mg Tablet PO 8.6 mg BID AMY Administration Sodium Chloride 1,000 mg 08/18/22 09:00 08/18/22 08:34 Sodium Chloride 1,000 Mg Tablet PO 1,000 mg BID AMY Administration Thiamine HCl 100 mg 08/14/22 10:45 08/18/22 08:34 Thiamine 100 Mg Tablet PO 100 mg DAILY AMY Administration Objective Ventilator Parameters: Ventilator Settings FiO2 0.35 Labs 08/18/22 08:34 08/18/22 08:34 Labs: Laboratory Results - last 24 hr 08/17/22 08/18/22 08/18/22 06:51 04:13 08:34 WBC 6.3 RBC 3.55 L Hgb 11.4 L Hct 33.7 L MCV 94.9 MCH 32.0 MCHC 33.7 RDW 14.4 Plt Count 144 L Neut % (Auto) 60.3 Lymph % (Auto) 14.2 L [place] % (Auto) 12.9 Eos % (Auto) 12.2 H Baso % (Auto) 0.4 Neut # (Auto) 3800 Lymph # (Auto) 900 L [place] # (Auto) 800 Eos # (Auto) 800 H Baso # (Auto) 0 Sodium 126 L Potassium 4.4 Chloride 86 L Carbon Dioxide 36 H BUN 17 Creatinine 0.55 L Estimated GFR > 60 BUN/Creatinine Ratio 30.9 H Glucose 101 Calcium 9.0 Magnesium 1.9 08/18/22 08:34 WBC RBC Hgb Hct MCV MCH MCHC RDW Plt Count Neut % (Auto) Lymph % (Auto) [place] % (Auto) Eos % (Auto) Baso % (Auto) Neut # (Auto) Lymph # (Auto) [place] # (Auto) Eos # (Auto) Baso # (Auto) Sodium 127 L Potassium 4.4 Chloride 87 L Carbon Dioxide 34 H BUN 15 Creatinine 0.52 L Estimated GFR > 60 BUN/Creatinine Ratio 28.8 H Glucose 86 Calcium 9.2 Magnesium Exam Vital Signs (past 8 hours): - 08/18/22 04:00 08/18/22 07:57 08/18/22 08:09 Temperature 98.5 F 98 F Pulse Rate 92 H 90 Respiratory Rate 22 23 Blood Pressure 110/53 L 115/56 L Pulse Oximetry 93 90 L 91 Oxygen Delivery Method Room Air Oxygen Flow Rate 1 0 Fraction of Inspired Oxygen 24 SaO2/FiO2 Ratio 400 Oxygen Delivery Method Room Air Oxygen Flow Rate 0 Narrative Exam Narrative: patient seen sitting up in chair, alert, NAD Quality TeleICU VTE Deep Vein Thrombosis/Pulmonary Embolism Present on Admission: No Assessment & Plan Assessment & Plan narrative: Assessment Acute on chronic hypercapnic Respiratory failure-improving COPD exacerbation Hyponatremia ETOH abuse Hypotension 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 -if patient shows signs of withdrawal now that librium was stopped, can consider adding tenex CV: -continue midodrine 10 mg TID for BP support -if BP drops again, consider more fluid boluses as patient responded to it yesterday Pulm: -check ABG if patient shows any signs of respiratry distress or increased somnolence -BIPAP as needed for increased CO2 retention -pt. not on systemic steroids as he has history of agitation with it -continue Budesonide ID: complete 5 day course of Levaquin for COPD exacerbation/bronchitis? Heme: hgb and plt slightly on low side but relatively stable (secondary to ETOH abuse?) FEn/Renal:? Na has been slowly trending up since admission slowly but it has plateaued at 127 in the last 2 days -liberalize salt in diet -free water restriction -if Na remains < 130 despite above measures, consider adding salt tabs to get Na above 130s PPx: lovenox Time Spent With Patient Critical Care time: I spent a total of [35] minutes of critical care time on this patient's care today; this time is exclusive of procedural time.
--- NOTE | 2022-08-18 11:24 | OT.IP.TRT ---
Current Diagnoses Hypo-osmolality and hyponatremia (08/12/22) Alcohol abuse, uncomplicated (08/12/22) Chronic obstructive pulmonary disease with (acute) exacerbation (08/12/22) Shock, unspecified (08/12/22) Occupational Therapy Treatment Note M2 OT-IP Current Condition Start: 08/17/22 15:41 Freq: Status: Active Protocol: Document 08/17/22 15:41 CGR (Rec: 08/17/22 15:58 CGR [id number]) Occupational Therapy Current Condition Current Condition Evaluation Date 08/17/22 Treatment Diagnosis COPD exacerbation Diagnosis Onset Date 08/12/22 M3 OT- IP Subjective and Pain Start: 08/17/22 15:41 Freq: Status: Active Protocol: Document 08/18/22 11:42 CCC (Rec: 08/18/22 11:50 [facility] [id number]) OT- Subjective Occupational Therapy Visit Type Type Treatment Note Visit Start Time 11:05 Visit Stop Time 11:24 Total Visit Minutes 19 Occupational Therapy Visit Comments Patient Comments Pt agreed to get up but not wanting to do any toileting or bathing needs at this time. Patient/Caregiver Goals TO get better. OT Pain Assessment Pain When Pain Assessed At Rest Pain Present Pain Present Denied Pain M4 OT- IP ADL's Start: 08/17/22 15:41 Freq: Status: Active Protocol: Document 08/18/22 11:42 CCC (Rec: 08/18/22 11:50 [facility] [id number]) OT [id number] Comments OT Self-Feeding Comments NOt at meal time. OT ADL-Grooming General Evaluation Grooming Ability Standby Assistance Comments OT Grooming Comments Pt able to wash his face after set-up of wash cloth. OT ADL-Oral Care Comments Oral Care Comments Pt refused. OT ADL-Dressing Comments OT Dressing Comments not performed OT ADL-Toileting Comments OT Toileting Comments Pt has been using the urinal but states not needing to use the bathroom at this time. BSC more appropriate or urinal due to decreased activity tolerance at this time. OT ADL-Bathing Comments OT Bathing Comments Pt refused to sponge off or shower as feeling too weak. Pt agreed to possibly try tomorrow. M5 OT- IP IADL's Start: 08/17/22 15:41 Freq: Status: Active Protocol: Document 08/17/22 15:41 CGR (Rec: 08/17/22 15:58 CGR [id number]) OT-Instrumental Activities of Daily Living Deficits IADL Deficits Identified No Deficits Home Safety Awareness Awareness of Need for Assistance at Home Good Awareness Ability to Problem Solve Emergency Able to Problem Solve Situations Medication Management Medication Management No Deficits Identified Money Management Money Management No Deficits Identified Meal Preparation Meal Preparation No Deficits Identified Health/Safety Job Titles Health/Safety Job Titles No Deficits Identified Driving Driving Comments Pt states he drives a scooter around. M6 OT- IP Functional Cognition Start: 08/17/22 15:41 Freq: Status: Active Protocol: Document 08/18/22 11:42 [facility] (Rec: 08/18/22 11:50 [facility] [id number]) Cognitive Factors Limiting Selfcare Function Cognitive Comments Cognitive Assessment Comments Pt able to follow commands for mobility needs and to was his face. M7 OT- IP Mobility and Balance Start: 08/17/22 15:41 Freq: Status: Active Protocol: Document 08/18/22 11:42 [facility] (Rec: 08/18/22 11:50 [facility] [id number]) OT- Bed Mobility Assessment Supine to Sit Supine to Sit Assist Contact Guard Assistance OT-Transfer Assessment Sit to and From Stand Sit to and from Stand Moderate Assistance Transfers Transfer Ability Moderate Assistance Technique Transfer Destination Chair Transfer Technique Stand Step Pivot Devices Transfer Assistive Devices Gait Belt,Front Wheeled Walker Comments Mobility Comments Increased time to get from supine to sit and able to stand with MODA X1 from high bed and would require more assist form a lower surface as this time due to weakness. Pt tends to slide his feet forwards. Assist to help steady pt and to help guide the FWW for the transfer to the recliner. OT- Balance Assessment Sitting Balance and Reactions Static Sitting Balance Ability Good Dynamic Sitting Balance Ability Good Standing Balance and Reactions Static Standing Balance Ability Poor Dynamic Standing Balance Ability Poor M8 OT- IP Objective Assessments Start: 08/17/22 15:41 Freq: Status: Active Protocol: Document 08/17/22 15:41 CGR (Rec: 08/17/22 15:58 CGR [id number]) OT Gross Range of Motion Upper Extremity Range of Motion Assessment Within Functional Limits OT Strength Upper Extremity Strength Assessment Within Functional Limits Comments Strength Comments grossly 4+/5 to 5/5 OT- Coordination Assessment Upper Extremity Finger to Nose Test Within Functional Limits Finger Tapping Test Within Functional Limits Comments Coordination Comments but with slow movements. OT-Muscle Tone Assessment Muscle Tone WNL Yes OT Sensation Assessment Edema Edema Absent M9 OT- IP Assessment and Plan Start: 08/17/22 15:41 Freq: Status: Active Protocol: Document 08/18/22 11:42 [facility] (Rec: 08/18/22 11:50 [facility] [id number]) OT Summary Assessment and Plan Potential Rehabilitation Potential Excellent Analytic Complexity at Evaluation Moderate Summary OT Impairments Balance,Functional Mobility, Grooming,Dressing,Toileting, Bathing,Toilet Transfers, Shower Transfers,Activity Tolerance Progress Towards Goals Progressing Toward Goals Assessment Summary Pt noted improvement for bed mobility and transfer and now one person assist, however still has shakiness with movements and decreased activity tolerance. Pt not up for much ADL's today and states to try doing sponge off versus shower tomorrow if able for tomorrow's OT session. Pt would benefit from skilled rehab when medically stable. Goals Self-Feeding Goal Independent Grooming Goal Independent Dressing Goal Independent Toileting Goal Independent Bathing Goal Independent Toilet Transfer Goal Independent Shower Transfer Goal Independent Days to Meet Goals 19 Frequency of Treatment Frequency Of Treatment Once a Day Treatment Plan OT Treatment Plan ADL Training,Functional Mobility,Patient/Family Education,Discharge Planning Other Treatment Recommendations and Next ADLs standing, shower if able. Treatment Focus Discharge Recommendations OT Discharge Recommendations SNF Rehab Transportation Needs at Discharge Wheelchair/Cabulance
--- NOTE | 2022-08-18 15:05 | PT.IPTN ---
Current Diagnoses Hypo-osmolality and hyponatremia (08/12/22) Alcohol abuse, uncomplicated (08/12/22) Chronic obstructive pulmonary disease with (acute) exacerbation (08/12/22) Shock, unspecified (08/12/22) Physical Therapy Treatment Note M2 PT-IP Current Condition Start: 08/16/22 09:11 Freq: NEEDED Status: Active Protocol: Document 08/17/22 15:15 SP (Rec: 08/17/22 16:56 SP [id number]) Physical Therapy Current Condition Current Condition Evaluation Date 08/16/22 Treatment Diagnosis sepsis, COPD exacerbation, NSTEMI, impaired mobility Onset Date 08/12/22 M3 PT-IP Subjective Start: 08/16/22 09:11 Freq: NEEDED Status: Active Protocol: Document 08/18/22 14:33 LJ (Rec: 08/18/22 15:04 LJ [id number]) Subjective Physical Therapy Visit Type Type Treatment Note Visit Start Time 14:08 Visit Stop Time 14:29 Total Visit Minutes 21 Notes Nsg stated just put back to bed. Physical Therapy Visit Comments Patient Comments Pt reluctant but willing to participate in PT Patient Goals Pt wants to regain strength and be better able to take care of himself. Therapy Pain Assessment Pain When Pain Assessed At Rest Pain Present Pain Present Pain Reported Location Back Scale Used not quantified; no worse than usual Pain Management Techniques Distraction,Re-positioning M4 PT-IP Mobility and Gait Start: 08/16/22 09:11 Freq: NEEDED Status: Active Protocol: Document 08/18/22 14:33 RAHAT (Rec: 08/18/22 15:04 LJ [id number]) PT-Bed Mobility Assessment Rolling Type of Rolling Bilateral Level of Assist Standby Assistance,Minimal Assistance Supine to Sit Supine to Sit Contact Guard Assistance,1 Person Assistance Sit to Supine Sit to Supine Contact Guard Assistance, Minimal Assistance Scooting Scooting to Edge of Bed Standby Assistance Scooting Up and Down in Bed Contact Guard Assistance PT-Transfer Assessment Sit to and From Stand Sit to and from Stand Contact Guard Assistance, Minimal Assistance,1 Person Assistance,Use of Upper Extremities Equipment Transfer Assistive Device Gait Belt,Front Wheeled Walker Orthotic/Prosthetic Devices or Brace: No Transfers Transfer Destination Bed Comments Mobility Comments Pt completed logroll to SL on flat bed. SL to sitting on side of bed SBA with cues to brace LEs against side of bed for leverage to raise to sitting while pushing with elbow and opposite arm into matress. No assistance was provided by therapist other than cues. Pt then completed sit<>stand CGA and cues for glute activation and posture. Initially pt was very shakey however after repeating sit<> stands 5 more times he was able to minimize the shaking. Pt then completed 30 sec of marching at side of bed 4 times with seated rest break for 15 sec. Pt then completed weight shifting laterally 10x maintaining toe touch of non- weightbearing foot for balance . Next, pt distributed weight evenly on both LEs and stood for several seconds 5x without hand hold on FWW but with CGA and gait belt. Pt then completed 5 slowly ascending and descending sit<>stand from side of bed. Pt then completed sit>sidelying with Thee for lifting LEs onto bed. Pt logrolled onto back and completed 2 bridges to move bottom to middle of bed. Pt able to scoot self to head of bed with bed flat. Therapist braced feet to prevent them from sliding. Pt comfortable in bed with HOB elevated and all needs within reach. Gait Assessment Comments Gait Comments see mobility comments Stair Climbing Assessment Comments Stair Climbing Comments no stairs need to assess PT-Balance Assessment Sitting Balance and Reactions Static Sitting Balance Ability Good Dynamic Sitting Balance Ability Fair Standing Balance and Reactions Static Standing Balance Ability Fair Dynamic Standing Balance Ability Poor Device Used FWW M5 PT-IP Objective Assessments Start: 08/16/22 09:11 Freq: NEEDED Status: Active Protocol: Document 08/16/22 14:08 AW (Rec: 08/16/22 14:41 AW [id number]) Orientation Orientation/Cognition Level of Alertness Confusional State Orientation Name,Year,Place,Situation Comments Pt needing extra processing time receptively and expressively. Gross Range of Motion Lower Extremity ROM Assessment Within Functional Limits Strength Lower Extremity Strength Assessment Bilaterally Impaired Hip 4-/5 Knee 4/5 Ankle 4-/5 Coordination Assessment Gross Coordination Gross Coordination Impaired Assessment Finger to Nose Test Moderate Impairment Foot Tapping Test Moderate Impairment Sensation Assessment Sensation Gross Sensation Right LE Impaired,Left LE Impaired Proprioception (Position) Impaired M6 PT-IP Treatment Start: 08/16/22 09:11 Freq: NEEDED Status: Active Protocol: Document 08/18/22 14:33 RAHAT (Rec: 08/18/22 15:04 LJ [id number]) Physical Therapy Treatment Exercises Exercises Ankle Pumps,Gluteal Sets, Straight Leg Raises Education Education Provided Safety Other Treatments Other Treatment Performed see mobility section M7 PT-IP Assessment and Plan Start: 08/16/22 09:11 Freq: NEEDED Status: Active Protocol: Document 08/18/22 14:33 RAHAT (Rec: 08/18/22 15:04 RAHAT [id number]) PT Summary Assessment and Plan Potential Rehabilitation Potential Fair Summary Impairments Pain,Strength,Balance, Coordination,Sensation, Cognition,Bed Mobility, Transfers,Gait,Activity Tolerance Progress Towards Goals Slow Progress due to Activity Tolerance Assessment Summary Pt asleep in bed upon entering room. Initially stated he was too tired to get up because he had been up and down a lot earlier but then changed his mind and decided to participate. Pt initially very shakey with sit<>stands but after completing several and with cues for glute and rhombooid involvement he was able to stand with very little shaking. Progressed to being able to stand for several seconds without holding onto FWW with CGA/ gait belt billing spec. Pt tolerated exercises well and was able to get himself back into bed with little assistance other than LE lifting. Pt is slow to process information and cues but will follow directions well. Will require SNF to improve strength, level of assist, and functional mobility for improvement in independence. Goals Bed Mobility Goal Independent Transfer Goal Independent,Front Wheeled Walker Gait Goal Standby Assistance,Front Wheel Walker Gait Distance 100 Other Goals - improve transfers and gait to SBA with SPC Days to Meet Goals 10 Frequency of Treatment Frequency Of Treatment Once a Day Treatment Plan Physical Therapy Treatment Plan Bed Mobility Training,Transfer Training,Gait Training, Therapeutic Exercise,Balance Retraining,Discharge Planning, Hot or Cold Pack,Neuromuscular Re-ed Other Recommendations and Next Treatment Le ex pre mobility, bed mob, Focus transfers and gait w/ FWW, chair follow for safety. Precautions Other Precautions falls risk Recommendations To Nursing Amount of Assist Needed 2 Person Assist Discharge Recommendations PT Discharge Recommendations SNF Rehab Equipment Needed for Home Before FWW? Discharge Transportation Needs at Discharge Wheelchair/Cabulance
--- NOTE | 2022-08-18 15:06 | CM.DPNOTE ---
DCP Note Spoke with patient's niece Salome today, with patient's permission. Salome: P [phone]. Salome explains patient's sister (Salome's mom Toña) also has COPD and has poor tolerance on the phone. Salome asks that [facility] and [facility] be sent referrals today According to Kristin, [facility] is not a preferred provider under [facility] contract so patient would incur higher out of pocket cost [facility] will not take anyone that has smoked within two months, no nicotine patch considered [facility] H+R denied d/t patient's hx of drinking Kermit at [facility] has accepted Dominique at [facility] has given auth- auth # [id number]. provided this to Pilar at [facility] Will ask that oncoming DC c4 planner review plan w/family Wednesday morning and if they are agreeable, coordinate plan with Kermit at [facility] Wed AM. PASRR completed Updated Dr Cramer. Plan: Expect DC to [facility] tomorrow, transport needed (it is unlikely patient can transport via pov) [facility] requests update upon patient's day of DC JW
--- NOTE | 2022-08-18 16:55 | PM.PN.1 ---
Subjective Subjective Date Patient Seen: 08/18/22 Interval history: Patient worked with PT/OT today. Accepted at [facility] for tomorrow. Patient finally had a BM with prune juice and feels better. Exam Vital Signs (past 8 hours): - 08/18/22 13:34 08/18/22 16:07 Temperature 97.8 F 98 F Pulse Rate 85 97 H Respiratory Rate 16 20 Blood Pressure 96/54 L 131/60 Pulse Oximetry 94 94 Oxygen Flow Rate 1 1 Fraction of Inspired Oxygen 24 SaO2/FiO2 Ratio 400 Oxygen Delivery Method Nasal Cannula Oxygen Flow Rate 1 Narrative Exam Narrative: GEN:? Middle-aged male, Alert and oriented x 3, NAD HEENT:NC, Face symmetric CHEST: Respiratory excursions symmetric, diffuse expiratory wheezes bilaterally, diffusely diminished CV: RRR, no M/R/G ABD: Soft, NT/ND, BT present in all 4 quadrants, no organomegaly or masses EXTR: warm, well perfused, no C/C/E SKIN: warm and dry, no rash NEURO: Alert and oriented x 3, nonfocal Objective Labs 08/18/22 08:34 08/18/22 08:34 Labs: Laboratory Results - last 24 hr 08/17/22 08/18/22 08/18/22 06:51 04:13 08:34 WBC 6.3 RBC 3.55 L Hgb 11.4 L Hct 33.7 L MCV 94.9 MCH 32.0 MCHC 33.7 RDW 14.4 Plt Count 144 L Neut % (Auto) 60.3 Lymph % (Auto) 14.2 L [place] % (Auto) 12.9 Eos % (Auto) 12.2 H Baso % (Auto) 0.4 Neut # (Auto) 3800 Lymph # (Auto) 900 L [place] # (Auto) 800 Eos # (Auto) 800 H Baso # (Auto) 0 Sodium 126 L Potassium 4.4 Chloride 86 L Carbon Dioxide 36 H BUN 17 Creatinine 0.55 L Estimated GFR > 60 BUN/Creatinine Ratio 30.9 H Glucose 101 Calcium 9.0 Magnesium 1.9 08/18/22 08:34 WBC RBC Hgb Hct MCV MCH MCHC RDW Plt Count Neut % (Auto) Lymph % (Auto) [place] % (Auto) Eos % (Auto) Baso % (Auto) Neut # (Auto) Lymph # (Auto) [place] # (Auto) Eos # (Auto) Baso # (Auto) Sodium 127 L Potassium 4.4 Chloride 87 L Carbon Dioxide 34 H BUN 15 Creatinine 0.52 L Estimated GFR > 60 BUN/Creatinine Ratio 28.8 H Glucose 86 Calcium 9.2 Magnesium [facility] Medical History (Updated 08/16/22 @ 11:36 by Boris Arrington MD) Alcohol abuse Continuous tobacco abuse Emphysema lung Essential hypertension Surgical History (Updated 08/13/22 @ 05:41 by JANICE Salguero) History of hernia repair Family History Father Cancer Mother Emphysema of lung Social History household members: none Smoking Status: Current every day smoker alcohol intake: current Assessment & Plan Assessment & Plan narrative: 1. Acute hypoxic resp failure Pt developed resp acidosis on 08/15 and required narcan x 3 doses as well as BiPAP. Now improving and he is now on NC O2 at 1L. 2. COPD exac, improving Productive cough improving per patient. Pt doesn't tolerate steroids (increased agitation/anxiety). Continues budesonide nebs, duonebs, finished Azithro x3 days, and Levaquin Day 3/5. Continues mucinex, flutter valve. 3. Hyponatremia, improving Sodium was 107 on admission. With fluid restriction now up to 127. Added salt tabs 1g BID on 08/18. 4. Myocardial injury secondary to demand ischemia Continue aspirin therapy.? Echocardiogram was performed on 08/12 w/nl LV function, no WMA. Some expected right sided dysfunction.? Lipids are within normal limits with the exception of HDL which was high at 95. Given the minimal troponin elevation (max of 0.048), suspect this was demand ischemia related to hypoxia. 5. Alcohol dependence Restarted low dose libirum due to tremors and anxiety increased since stopping librium. Continue multivitamin and thiamine. 6. Tobacco dependence Recommend cessation.? Nicotine patch in place. 7. Acute on chronic mild malnutrition He does admit to poor appetite.? Will monitor nutritional intake. 8. Hypotension, improved Episode of significant prolonged hypotension on 08/15 which only briefly responded to fluid boluses requiring levophed. Lactate nl. No cardiac sxs. Stable Hgb. Hypotension was likely exacerbated by BiPAP. Midodrine added and levophed now weaned off. 9. Mild normocytic anemia Hemoglobin is stable at 12.1. 10. Thrombocytopenia Likely alcohol related.? Platelets were 166 on admission, darshan of 114. Now improved at 134. 11. Acute on chronic back pain Scheduled tylenol. Oxycodone d/c'd due to resp acidosis and sedation. 12. Constipation Reports he has not had a bowel movement in 5 days. Added scheduled laxatives. Had BM on 08/18. Code status DNR/DNI Prophylaxis On Lovenox Disposition Accepted to SNF on 08/19. Time Spent With Patient Critical Care time: I spent a total of [] minutes of critical care time on this patient's care today; this time is exclusive of procedural time. Quality VTE Deep Vein Thrombosis/Pulmonary Embolism Present on Admission: No
[2022-08-19 04:00] VITALS: BP 132/63; PULSE 94; RESP 18; TEMP 37.1; O2SAT 95
--- NOTE | 2022-08-19 04:36 | PC.NURSE ---
Patient sleeping most of shift, no complaints at present time.
[2022-08-19] MEDS: MIDODRINE HCL 5 MG TABLET 10 MG PO ×2 (06:08→12:31)
[2022-08-19] MEDS: levoFLOXacin 250 MG TABLET 750 MG PO (06:08)
[2022-08-19] MEDS: ALBUTEROL/IPRATROPIUM 3 ML AMPUL INH (07:54)
[2022-08-19] MEDS: BUDESONIDE 0.5 MG/2 ML NEB INH (07:54)
[2022-08-19 07:56] VITALS: O2SAT 92
[2022-08-19] MEDS: NICOTINE 14 PATCH 14 MG TOP (08:05)
[2022-08-19] MEDS: ENOXAPARIN 40 MG/0.4 ML SYRINGE SUBCUT (08:05)
[2022-08-19] MEDS: SODIUM CHLORIDE 1,000 MG TABLET 1000 MG PO (08:06)
[2022-08-19] MEDS: guaiFENesin ER 600 MG TAB 1200 MG PO (08:06)
[2022-08-19] MEDS: LIDOCAINE PATCH 1 EACH ADH..PATCH TOP (08:06)
[2022-08-19] MEDS: THIAMINE 100 MG TABLET PO (08:07)
[2022-08-19] MEDS: ASPIRIN EC 81 MG TABLET PO (08:07)
[2022-08-19] MEDS: FOLIC ACID 1 MG TABLET PO (08:07)
[2022-08-19] MEDS: MULTIVITAMIN 1 TABLET 1 TAB PO (08:07)
[2022-08-19] MEDS: chlordiazePOXIDE 10 MG CAPSULE PO (08:07)
[2022-08-19] MEDS: SENNOSIDES 8.6 MG TABLET PO (08:07)
--- NOTE | 2022-08-19 08:20 | CM.DPC ---
Addendum entered by DEVORA Booker 08/19/22 10:24: ADD: NEW also called Dominique at [facility] and left ms with update that pt will d/c to SNF this afternoon. BF Addendum entered by DEVORA Booker 08/19/22 10:20: ADD: Return call from [facility] Vaishali stating they can provide transport today around 1300 and [facility] kindly faxed d/c packet for review and NEW updated RN who kindly is calling jesse Mcmahon and providing her with medical update and time for transport. 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 Plan: Patient to d/c to [facility] today via facility van around 1300 prior to safe return home. DEVORA Booker Original Note: DCP Discharge SNF Per MD, pt is medically stable to d/c to SNF today and no identified barriers to discharge. NEW called pt's main contact jesse Mcmahon [phone] and updated that [facility] confirmed they can accept pt today and [facility] auth'd SNF and Salome confirms she is agreeable with d/c to [facility] today and if needed family can provide transport before 1300 today. Per RN, pt on 1L Oxygen still as they have not yet been able to successfully wean him to RA. RN getting updated COVID swab now this morning. NEW called [facility] and left ms with admissions requesting they provide transport for today and that pt is on 1LO2 and confirmation of time for today. Plan: SW to follow closely for return call from [facility] towards finalizing discharge and transport time and mode of transportation for discharge today to SNF. DEVORA Booker
[2022-08-19 08:31] LABS: BUN Creatinine Ratio 28.1 (6-22); Blood Urea Nitrogen 16 mg/dL (9-20); Calcium 9.2 mg/dL (8.4-10.2); Carbon Dioxide 37 mmol/L (22-32); Chloride 89 mmol/L (98-107); Estimated Glomerular Filt Rate > 60 mL/min (>60); Glucose 85 mg/dL (80-110); HEMOLYSIS < 15 (0-50); Potassium 4.3 mmol/L (3.4-5.1); Sodium 128 mmol/L (137-145)
[2022-08-19 08:35] LABS: Add Manual Diff / Slide Review NO; Basophils Absolute Auto 0 /uL (0-100); Basophils Percent Auto 0.4 % (0-2); Eosinophils Absolute Auto 700 /uL (0-450); Eosinophils Percent Auto 11.6 % (2-4); Hematocrit 34.8 % (41-53); Hemoglobin 11.7 g/dL (13.5-17.5); Lymphocytes Absolute Auto 900 /uL (1100-4500); Lymphocytes Percent Auto 15.6 % (25-40); Mean Corpuscular HGB Conc 33.5 % (30-36); Mean Corpuscular Volume 95.5 fL (80-100); Monocytes Absolute Auto 600 /uL (0-900); Monocytes Percent Auto 11.4 % (3-14); Neutrophils Absolute Auto 3500 /uL (1500-7000); Platelet Count 154 X10^3/uL (150-400); Red Blood Cell Count 3.65 X10^6/uL (4.5-5.9); Red Cell Distribution Width 14.7 % (11.6-14.8); White Blood Cell Count 5.7 X10^3/uL (4.5-11.0)
[2022-08-19 08:59] LABS: COVID19 -Nasal RAPID Negative (Negative)
--- NOTE | 2022-08-19 09:37 | P.TELICUPN_ITS ---
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 care: Yes Patient Location: ICU Provider location (State): [place] Other participants/roles: RT Current Medications Current Medications Medications: Home Medications allopurinol 300 mg tablet 300 mg PO DAILY 08/13/22 [History Confirmed 08/13/22] fluticasone 500 mcg-salmeterol 50 mcg/dose blistr powdr for inhalation (Advair Diskus) 1 inh inhalation BID 08/13/22 [History Confirmed 08/13/22] indapamide 1.25 mg tablet 1.25 mg PO QAM 08/13/22 [History Confirmed 08/13/22] aspirin 81 mg tablet,delayed release 81 mg PO DAILY #90 tabs 08/19/22 [Rx] levofloxacin 750 mg tablet 750 mg PO 0700 1 day #1 tab 08/19/22 [Rx] midodrine 10 mg tablet 10 mg PO 0600,1200,1800 30 days #90 tabs 08/19/22 [Rx] nicotine 14 mg/24 hr daily transdermal patch 14 mg topical DAILY #28 ea 08/19/22 [Rx] sodium chloride 1,000 mg soluble tablet 1,000 mg PO BID #60 tabs 08/19/22 [Rx] Visit Medications (administered) Generic Name Dose Route Start Last Admin Trade Name Freq PRN Reason Stop Dose Admin Acetaminophen 650 mg 08/15/22 20:00 08/19/22 09:06 Acetaminophen 325 Mg Tablet PO Not Given Q6H AMY Albuterol/Ipratropium 3 ml 08/12/22 22:59 08/19/22 07:54 Albuterol/Ipratropium 3 Ml Ampul INH 3 ml RTQ4HR PRN Administration Shortness Of Breath Or Wheezing Aspirin 81 mg 08/13/22 09:00 08/19/22 08:07 Aspirin Ec 81 Mg Tablet PO 81 mg DAILY AMY Administration Budesonide 0.5 mg 08/15/22 20:00 08/19/22 07:54 Budesonide 0.5 Mg/2 Ml Neb INH 0.5 mg RTBID AMY Administration Chlordiazepoxide HCl 10 mg 08/17/22 16:45 08/19/22 08:07 Chlordiazepoxide 10 Mg Capsule PO 10 mg TID AMY Administration Enoxaparin Sodium 40 mg 08/13/22 09:00 08/19/22 08:05 Enoxaparin 40 Mg/0.4 Ml Syringe SUBCUT 40 mg DAILY AMY Administration Folic Acid 1 mg 08/14/22 13:45 08/19/22 08:07 Folic Acid 1 Mg Tablet PO 1 mg DAILY AMY Administration Guaifenesin 1,200 mg 08/15/22 10:30 08/19/22 08:06 Guaifenesin Er 600 Mg Tab PO 1,200 mg BID AMY Administration Levofloxacin 750 mg 08/15/22 16:11 08/19/22 06:08 Levofloxacin 250 Mg Tablet PO 08/20/22 16:10 750 mg 0700 AMY Administration Lidocaine 1 each 08/13/22 09:00 08/19/22 08:06 Lidocaine Patch 1 Each Adh..Patch TOP 1 each DAILY AMY Administration Lidocaine 1 each 08/14/22 21:00 08/18/22 20:24 Remove Lidocaine Patch TOP 1 each BEDTIME AMY Administration Midodrine 10 mg 08/16/22 12:00 08/19/22 06:08 Midodrine Hcl 5 Mg Tablet PO 10 mg 0600,1200,1800 AMY Administration Multivitamins 1 tab 08/14/22 10:45 08/19/22 08:07 Multivitamin 1 Tablet PO 1 tab DAILY AMY Administration Naloxone HCl 0.2 mg 08/12/22 23:07 08/15/22 16:04 Naloxone 0.4 Mg/Ml Vial IV 0.2 mg Q2MIN PRN Administration Opiate Reversal Nicotine 14 mg 08/13/22 09:00 08/19/22 08:05 Nicotine 14 Patch TOP 14 mg DAILY AMY Administration Sennosides 8.6 mg 08/16/22 09:00 08/19/22 08:07 Sennosides 8.6 Mg Tablet PO 8.6 mg BID AMY Administration Sodium Chloride 1,000 mg 08/18/22 09:00 08/19/22 08:06 Sodium Chloride 1,000 Mg Tablet PO 1,000 mg BID AMY Administration Thiamine HCl 100 mg 08/14/22 10:45 08/19/22 08:07 Thiamine 100 Mg Tablet PO 100 mg DAILY AMY Administration Objective Ventilator Parameters: Ventilator Settings FiO2 0.35 Labs 08/19/22 08:04 08/19/22 07:50 Labs: Laboratory Results - last 24 hr 08/19/22 08/19/22 08/19/22 07:50 08:04 08:32 WBC 5.7 RBC 3.65 L Hgb 11.7 L Hct 34.8 L MCV 95.5 MCH 32.0 MCHC 33.5 RDW 14.7 Plt Count 154 Neut % (Auto) 61.0 Lymph % (Auto) 15.6 L Door % (Auto) 11.4 Eos % (Auto) 11.6 H Baso % (Auto) 0.4 Neut # (Auto) 3500 Lymph # (Auto) 900 L Door # (Auto) 600 Eos # (Auto) 700 H Baso # (Auto) 0 Sodium 128 L Potassium 4.3 Chloride 89 L Carbon Dioxide 37 H BUN 16 Creatinine 0.57 L Estimated GFR > 60 BUN/Creatinine Ratio 28.1 H Glucose 85 Calcium 9.2 SARS-CoV-2 (PCR) Negative Exam Vital Signs (past 8 hours): - 08/19/22 04:00 08/19/22 07:56 Temperature 98.7 F Pulse Rate 94 H Respiratory Rate 18 Blood Pressure 132/63 Pulse Oximetry 95 92 Oxygen Delivery Method Nasal Cannula Oxygen Flow Rate 1 1 Fraction of Inspired Oxygen 24 SaO2/FiO2 Ratio 400 Oxygen Delivery Method Nasal Cannula Oxygen Flow Rate 1 Quality TeleICU VTE Deep Vein Thrombosis/Pulmonary Embolism Present on Admission: No Assessment & Plan Time Spent With Patient Critical Care time: I spent a total of [] minutes of critical care time on this patient's care today; this time is exclusive of procedural time. ROS Const All systems reviewed & are unremarkable except as noted in HPI and below
--- NOTE | 2022-08-19 11:06 | PT.IPTN ---
Current Diagnoses Hypo-osmolality and hyponatremia (08/12/22) Alcohol abuse, uncomplicated (08/12/22) Chronic obstructive pulmonary disease with (acute) exacerbation (08/12/22) Shock, unspecified (08/12/22) Physical Therapy Treatment Note M2 PT-IP Current Condition Start: 08/16/22 09:11 Freq: NEEDED Status: Active Protocol: Document 08/17/22 15:15 SP (Rec: 08/17/22 16:56 SP [id number]) Physical Therapy Current Condition Current Condition Evaluation Date 08/16/22 Treatment Diagnosis sepsis, COPD exacerbation, NSTEMI, impaired mobility Onset Date 08/12/22 M3 PT-IP Subjective Start: 08/16/22 09:11 Freq: NEEDED Status: Active Protocol: Document 08/19/22 10:38 RAHAT (Rec: 08/19/22 11:05 LJ [id number]) Subjective Physical Therapy Visit Type Type Treatment Note Visit Start Time 09:20 Visit Stop Time 09:50 Total Visit Minutes 30 Notes Pt lying in bed. Willing to work with PT Number of SAMPLING EXPERT Visits 3 Physical Therapy Visit Comments Patient Comments I want to get strong enough to go home Patient Goals Pt wants to regain strength and be better able to take care of himself. Therapy Pain Assessment Pain When Pain Assessed At Rest Pain Present Pain Present Denied Pain M4 PT-IP Mobility and Gait Start: 08/16/22 09:11 Freq: NEEDED Status: Active Protocol: Document 08/19/22 10:38 RAHAT (Rec: 08/19/22 11:05 LJ [id number]) PT-Bed Mobility Assessment Rolling Type of Rolling Bilateral Level of Assist Standby Assistance,Minimal Assistance Supine to Sit Supine to Sit Standby Assistance,1 Person Assistance Sit to Supine Sit to Supine Minimal Assistance Scooting Scooting to Edge of Bed Standby Assistance Scooting Up and Down in Bed Standby Assistance PT-Transfer Assessment Sit to and From Stand Sit to and from Stand Contact Guard Assistance,1 Person Assistance,Use of Upper Extremities Equipment Transfer Assistive Device Gait Belt,Front Wheeled Walker Orthotic/Prosthetic Devices or Brace: No Transfers Transfer Destination Bed Transfer Ability Level of Assist Standby Assistance,Contact Guard Assistance,Use of Upper Extremities Comments Mobility Comments Pt able to get himself out of bed with use of handrails SBA. Requires assistance lifting LEs onto bed when getting back into bed Aravind. Pt able to sit on side of bed without use of UEs to balance. Completed x5 sit<>stand SBA using UEs on FWW for lift. Ambulated in a rosebud around the bed ~15' then returned to side of bed. Pt then completed x5 sit<> stand and marched in place 2x40' without fatigue. Demonstrated improved balance with standing balance 3x1 min without hh on FWW. Cues for posture and glute activation. Pt verbalized fatigue and requested to get back in bed. Able to position slef in bed with assist for lifting LEs. Pt able to scoot to head of bed when put in a flat position. Pt made comfortable in bed and given all needs. Gait Assessment Gait Gait Assistance Required: Contact Guard Assist,1 Person Assist Distance (Feet) 15 Assistive Devices Assistive Device Gait Belt,Front Wheeled Walker Orthotic/Prosthetic Devices or Brace: No Gait Deviations General Gait Pattern Antalgic,Ataxic,Decreased Stride Length,Decreased Feet Clearance,Flexed Trunk,Lateral Trunk Lean,Step-to Gait Factors Limiting Gait Function Factors Limiting Gait Function Decreased Activity Tolerance, Decreased Strength, Incoordination,Pain,Poor Balance,Poor Safety Awareness Comments Gait Comments Pt able to demonstrate steadier gait with less shaking and improved control of FWW. He does not push so hard onto the walker and is able to drop his shoulders and stand taller. Still requiring cues for ambulation. Stair Climbing Assessment Comments Stair Climbing Comments no stairs need to assess PT-Balance Assessment Sitting Balance and Reactions Static Sitting Balance Ability Good Dynamic Sitting Balance Ability Fair Standing Balance and Reactions Static Standing Balance Ability Fair Dynamic Standing Balance Ability Fair Device Used FWW M5 PT-IP Objective Assessments Start: 08/16/22 09:11 Freq: NEEDED Status: Active Protocol: Document 08/16/22 14:08 AW (Rec: 08/16/22 14:41 AW [id number]) Orientation Orientation/Cognition Level of Alertness Confusional State Orientation Name,Year,Place,Situation Comments Pt needing extra processing time receptively and expressively. Gross Range of Motion Lower Extremity ROM Assessment Within Functional Limits Strength Lower Extremity Strength Assessment Bilaterally Impaired Hip 4-/5 Knee 4/5 Ankle 4-/5 Coordination Assessment Gross Coordination Gross Coordination Impaired Assessment Finger to Nose Test Moderate Impairment Foot Tapping Test Moderate Impairment Sensation Assessment Sensation Gross Sensation Right LE Impaired,Left LE Impaired Proprioception (Position) Impaired M6 PT-IP Treatment Start: 08/16/22 09:11 Freq: NEEDED Status: Active Protocol: Document 08/19/22 10:38 RAHAT (Rec: 08/19/22 11:05 RAHAT [id number]) Physical Therapy Treatment Exercises Exercises Gluteal Sets,Quad Sets, Straight Leg Raises,Seated Knee Flexion/Extension Education Education Provided Safety Other Treatments Other Treatment Performed see mobility section M7 PT-IP Assessment and Plan Start: 08/16/22 09:11 Freq: NEEDED Status: Active Protocol: Document 08/19/22 10:38 RAHAT (Rec: 08/19/22 11:05 RAHAT [id number]) PT Summary Assessment and Plan Potential Rehabilitation Potential Fair Summary Impairments Pain,Strength,Balance, Coordination,Sensation, Cognition,Bed Mobility, Transfers,Gait,Activity Tolerance Progress Towards Goals Slow Progress due to Activity Tolerance Assessment Summary Pt improving with mobility and transfers. Gait is improving as far as the shaking goes, but distance still limited by activity tolerance. Standing balance improving as demonstrated by his ability to stand without support for 1 minute 3 times. He is motivated to get well and is very cooperative during treatment sessions. Goals Bed Mobility Goal Independent Transfer Goal Independent,Front Wheeled Walker Gait Goal Standby Assistance,Front Wheel Walker Gait Distance 100 Other Goals - improve transfers and gait to SBA with SPC Days to Meet Goals 10 Frequency of Treatment Frequency Of Treatment Once a Day Treatment Plan Physical Therapy Treatment Plan Bed Mobility Training,Transfer Training,Gait Training, Therapeutic Exercise,Balance Retraining,Discharge Planning, Hot or Cold Pack,Neuromuscular Re-ed Other Recommendations and Next Treatment Le ex pre mobility, bed mob, Focus transfers and gait w/ FWW, chair follow for safety. Precautions Other Precautions falls risk Recommendations To Nursing Amount of Assist Needed 1 Person Assist Discharge Recommendations PT Discharge Recommendations SNF Rehab Transportation Needs at Discharge Wheelchair/Cabulance
--- NOTE | 2022-08-19 11:09 | PT.IPTN ---
Current Diagnoses Hypo-osmolality and hyponatremia (08/12/22) Alcohol abuse, uncomplicated (08/12/22) Chronic obstructive pulmonary disease with (acute) exacerbation (08/12/22) Shock, unspecified (08/12/22) Physical Therapy Treatment Note M2 PT-IP Current Condition Start: 08/16/22 09:11 Freq: NEEDED Status: Active Protocol: Document 08/17/22 15:15 SP (Rec: 08/17/22 16:56 SP [id number]) Physical Therapy Current Condition Current Condition Evaluation Date 08/16/22 Treatment Diagnosis sepsis, COPD exacerbation, NSTEMI, impaired mobility Onset Date 08/12/22 M3 PT-IP Subjective Start: 08/16/22 09:11 Freq: NEEDED Status: Active Protocol: Document 08/19/22 10:38 RAHAT (Rec: 08/19/22 11:05 LJ [id number]) Subjective Physical Therapy Visit Type Type Treatment Note Visit Start Time 09:20 Visit Stop Time 09:50 Total Visit Minutes 30 Notes Pt lying in bed. Willing to work with PT Number of DIPPING MACHINE OPERATOR Visits 3 Physical Therapy Visit Comments Patient Comments I want to get strong enough to go home Patient Goals Pt wants to regain strength and be better able to take care of himself. Therapy Pain Assessment Pain When Pain Assessed At Rest Pain Present Pain Present Denied Pain M4 PT-IP Mobility and Gait Start: 08/16/22 09:11 Freq: NEEDED Status: Active Protocol: Document 08/19/22 10:38 RAHAT (Rec: 08/19/22 11:05 LJ [id number]) PT-Bed Mobility Assessment Rolling Type of Rolling Bilateral Level of Assist Standby Assistance,Minimal Assistance Supine to Sit Supine to Sit Standby Assistance,1 Person Assistance Sit to Supine Sit to Supine Minimal Assistance Scooting Scooting to Edge of Bed Standby Assistance Scooting Up and Down in Bed Standby Assistance PT-Transfer Assessment Sit to and From Stand Sit to and from Stand Contact Guard Assistance,1 Person Assistance,Use of Upper Extremities Equipment Transfer Assistive Device Gait Belt,Front Wheeled Walker Orthotic/Prosthetic Devices or Brace: No Transfers Transfer Destination Bed Transfer Ability Level of Assist Standby Assistance,Contact Guard Assistance,Use of Upper Extremities Comments Mobility Comments Pt able to get himself out of bed with use of handrails SBA. Requires assistance lifting LEs onto bed when getting back into bed Aravind. Pt able to sit on side of bed without use of UEs to balance. Completed x5 sit<>stand SBA using UEs on FWW for lift. Ambulated in a upper [place] around the bed ~15' then returned to side of bed. Pt then completed x5 sit<> stand and marched in place 2x40' without fatigue. Demonstrated improved balance with standing balance 3x1 min without hh on FWW. Cues for posture and glute activation. Pt verbalized fatigue and requested to get back in bed. Able to position slef in bed with assist for lifting LEs. Pt able to scoot to head of bed when put in a flat position. Pt made comfortable in bed and given all needs. Gait Assessment Gait Gait Assistance Required: Contact Guard Assist,1 Person Assist Distance (Feet) 15 Assistive Devices Assistive Device Gait Belt,Front Wheeled Walker Orthotic/Prosthetic Devices or Brace: No Gait Deviations General Gait Pattern Antalgic,Ataxic,Decreased Stride Length,Decreased Feet Clearance,Flexed Trunk,Lateral Trunk Lean,Step-to Gait Factors Limiting Gait Function Factors Limiting Gait Function Decreased Activity Tolerance, Decreased Strength, Incoordination,Pain,Poor Balance,Poor Safety Awareness Comments Gait Comments Pt able to demonstrate steadier gait with less shaking and improved control of FWW. He does not push so hard onto the walker and is able to drop his shoulders and stand taller. Still requiring cues for ambulation. Stair Climbing Assessment Comments Stair Climbing Comments no stairs need to assess PT-Balance Assessment Sitting Balance and Reactions Static Sitting Balance Ability Good Dynamic Sitting Balance Ability Fair Standing Balance and Reactions Static Standing Balance Ability Fair Dynamic Standing Balance Ability Fair Device Used FWW M5 PT-IP Objective Assessments Start: 08/16/22 09:11 Freq: NEEDED Status: Active Protocol: Document 08/16/22 14:08 AW (Rec: 08/16/22 14:41 AW [id number]) Orientation Orientation/Cognition Level of Alertness Confusional State Orientation Name,Year,Place,Situation Comments Pt needing extra processing time receptively and expressively. Gross Range of Motion Lower Extremity ROM Assessment Within Functional Limits Strength Lower Extremity Strength Assessment Bilaterally Impaired Hip 4-/5 Knee 4/5 Ankle 4-/5 Coordination Assessment Gross Coordination Gross Coordination Impaired Assessment Finger to Nose Test Moderate Impairment Foot Tapping Test Moderate Impairment Sensation Assessment Sensation Gross Sensation Right LE Impaired,Left LE Impaired Proprioception (Position) Impaired M6 PT-IP Treatment Start: 08/16/22 09:11 Freq: NEEDED Status: Active Protocol: Document 08/19/22 10:38 RAHAT (Rec: 08/19/22 11:05 RAHAT [id number]) Physical Therapy Treatment Exercises Exercises Gluteal Sets,Quad Sets, Straight Leg Raises,Seated Knee Flexion/Extension Education Education Provided Safety Other Treatments Other Treatment Performed see mobility section M7 PT-IP Assessment and Plan Start: 08/16/22 09:11 Freq: NEEDED Status: Active Protocol: Document 08/19/22 10:38 RAHAT (Rec: 08/19/22 11:05 RAHAT [id number]) PT Summary Assessment and Plan Potential Rehabilitation Potential Fair Summary Impairments Pain,Strength,Balance, Coordination,Sensation, Cognition,Bed Mobility, Transfers,Gait,Activity Tolerance Progress Towards Goals Slow Progress due to Activity Tolerance Assessment Summary Pt improving with mobility and transfers. Gait is improving as far as the shaking goes, but distance still limited by activity tolerance. Standing balance improving as demonstrated by his ability to stand without support for 1 minute 3 times. He is motivated to get well and is very cooperative during treatment sessions. Goals Bed Mobility Goal Independent Transfer Goal Independent,Front Wheeled Walker Gait Goal Standby Assistance,Front Wheel Walker Gait Distance 100 Other Goals - improve transfers and gait to SBA with SPC Days to Meet Goals 10 Frequency of Treatment Frequency Of Treatment Once a Day Treatment Plan Physical Therapy Treatment Plan Bed Mobility Training,Transfer Training,Gait Training, Therapeutic Exercise,Balance Retraining,Discharge Planning, Hot or Cold Pack,Neuromuscular Re-ed Other Recommendations and Next Treatment Le ex pre mobility, bed mob, Focus transfers and gait w/ FWW, chair follow for safety. Precautions Other Precautions falls risk Recommendations To Nursing Amount of Assist Needed 1 Person Assist Discharge Recommendations PT Discharge Recommendations SNF Rehab Transportation Needs at Discharge Wheelchair/Cabulance
[2022-08-19 12:00] VITALS: BP 140/65; PULSE 94; RESP 20; TEMP 37.2; O2SAT 93
--- NOTE | 2022-08-19 13:00 | PM.DS.1 ---
History of Present Illness History of Present Illness Date Patient Seen: 08/19/22 Time Patient Seen: 23:34 Chief complaint: COPD, SOB Narrative: Abdirashid Yan 71-year-old male with a history of emphysema, COPD hypertension, gout, chronic LBP- permanently disabled, heavy alcohol use and abuse, and tobacco abuse who presented to the ED complaining of worsening shortness of breath, fatigue and complaining brain just does not work for the past 3 days. Patient notes that his respiratory function has been gradually worsening over several years but became intolerable within the last 3 days. Patient is not normally on home O2 has never completed a sleep study and notes that he has not been diagnosed with sleep apnea although he reports difficulty sleeping due to difficulty breathing. Patient reports that he feels he is more confused and disorientated than previous, patient's cognitive thought process during admit intake is scattered often repeats himself repeats questions unknown if this is baseline for the patient. Patient complains difficulty urinating, decreased frequency, mild dysuria. He states that earlier in the evening went to stand up from his chair felt slightly dizzy went to sit back down and missed the chair and fell and hit the floor landing on his coccyx. This was not noted in the ER note so unsure if this is a correct recall of HPI. He denied hitting his head or loss of consciousness or frequent falls. Also denies chest pain, headache, changes in vision, speech impairment, weakness, numbness, tingling, difficulty with ambulation, recent falls, head injury, LOC, fever, body aches, chills, recent exposure to illness, abdominal pain, nausea, vomiting, urinary incontinence/retention, urgency, hematuria, bowel changes, constipation, incontinence, melena, rashes, recent, illness. Patient notes that he has been heavily drinking for several years 2-3 6 packs of beers per night with 4-6 glasses of whiskey until he would pass out after work. He reports recently cutting back to 3-4 glasses of whiskey per night. Patient also has been a 2 pack-a-day smoker for several decades, reports cutting back to 1 pack a day recently, occasionally has THC edibles, denies any other substance use. Admit 98.8, BP 158/75, 93, 20, 94% on 2 L-O2 saturations above 90% on room air. CBC unremarkable, sodium 107, chloride 67, potassium normal 4.2, creatinine normal 0.58, bili 1.7, AST 65, alk-phos 150, sofa score: 3, no gap, Mag 1.3, BNP 176, procalcitonin negative, ETOH negative, COVID/influenza a/B/RSV all negative. Initial troponin 0.043, repeat 0.048, head CT negative, chest x-ray negative with the exception of signs and symptoms of COPD. Patient admitted with sepsis without septic shock COPD exacerbation severe hyponatremia, hypomagnesemia, myocardial injury/NSTEMI to the ICU. Discharge Providers Provider Date of admission: 08/12/22 22:28 Discharge Date: 08/19/22 Primary care physician: Mary Kay Solomon MD Consults: 08/12/22 22:59 Consult to Cardio/Pulmonary Rehabilitation Routine Comment: Physician Instructions: Evaluate and treat 08/12/22 23:23 Consult to Tele-control supervisor Routine Comment: Consulting Provider: [facility] [employer] Reason for consultation: [employer] Has provider been notified: Yes 08/13/22 01:46 Consult to Dietitian, Adult Routine Comment: Reason For Exam: low weight 08/13/22 07:23 Consult to Tele-control supervisor Routine Comment: Consulting Provider: [employer] Reason for consultation: [employer] 08/15/22 10:30 Consult to Physical Therapy Evaluate & Treat Comment: Physician Instructions: Evaluate and Treat 08/15/22 15:17 Consult to Tele-control supervisor Routine Comment: Consulting Provider: [facility] [employer] Reason for consultation: [employer] 08/16/22 15:01 Consult to Discharge Planning Routine Comment: therapies recommending SNF 08/16/22 15:02 Consult to Occupational Therapy Evaluate & Treat Comment: Physician Instructions: Evaluate and treat Discharge provider: Haris Cramer DO Summary Hospital Course Discharge Diagnosis: 1.? Acute hypoxic resp failure Initially with COPD exacerbation. Pt developed resp acidosis on 08/15 and required narcan x 3 doses as well as BiPAP due to overmedication with librium and pain meds.? Now improving and he is now on NC O2 at 1L. 2.? COPD exac, improving Productive cough improving per patient. Pt doesn't tolerate steroids (increased agitation/anxiety).? Continues budesonide nebs, duonebs, finished Azithro x3 days, and Levaquin Day 4/5. Continues mucinex, flutter valve. Will get 1 more day of levaquin at SNF. 3.? Hyponatremia, improving Etioloyg likely due to combination of alcohol use and indapamide diuretic BP medication. Sodium was 107 on admission. With fluid restriction now up to 128. Added salt tabs 1g BID on 08/18. Continue fluid restriction of 1L per day at SNF until sodium normal. Stopped home indapamide on discharge. 4. Myocardial injury secondary to demand ischemia Continue aspirin therapy.? Echocardiogram was performed on 08/12 w/nl LV function, no WMA.? Some expected right sided dysfunction.? Lipids are within normal limits with the exception of HDL which was high at 95.? Given the minimal troponin elevation (max of 0.048), suspect this was demand ischemia related to hypoxia. Added daily baby aspirin. 5. Alcohol dependence Was on CIWA plus librium then weaned off. Continue multivitamin and thiamine. 6. Tobacco dependence Recommend cessation.? Nicotine patch in place. 7. Acute on chronic mild malnutrition He does admit to poor appetite.? Will monitor nutritional intake. 8. Hypotension, improved Episode of significant prolonged hypotension on 08/15 which only briefly responded to fluid boluses requiring levophed.? Lactate nl.? No cardiac sxs. ? Stable Hgb.? Hypotension was likely exacerbated by BiPAP and fluid restriction for hyponatremia. Midodrine added and levophed now weaned off. Continue midodrine and hold home BP meds. Can wean off midodrine at SNF if BP improves. 9. Mild normocytic anemia Hemoglobin is stable at 12.1. 10. Thrombocytopenia Likely alcohol related.? Platelets were 166 on admission, darshan of 114.? Now improved at 134. 11. Acute on chronic back pain Scheduled tylenol.? Oxycodone d/c'd due to resp acidosis and sedation. 12. Constipation Reports he has not had a bowel movement in 5 days. Added scheduled laxatives. Had BM on 08/18. Time Spent with Patient Time spent: Greater than 30 minutes Exam Vital Signs (past 8 hours): - 08/19/22 07:56 08/19/22 12:00 Temperature 99.0 F Pulse Rate 94 H Respiratory Rate 20 Blood Pressure 140/65 Pulse Oximetry 92 93 Oxygen Delivery Method Nasal Cannula Oxygen Flow Rate 1 1 Fraction of Inspired Oxygen 24 SaO2/FiO2 Ratio 400 Oxygen Delivery Method Nasal Cannula Oxygen Flow Rate 1 Narrative Exam Narrative: GEN:? Middle-aged male, Alert and oriented x 3, NAD HEENT:NC, Face symmetric CHEST: Respiratory excursions symmetric, diffuse expiratory wheezes bilaterally, diffusely diminished CV: RRR, no M/R/G ABD: Soft, NT/ND, BT present in all 4 quadrants, no organomegaly or masses EXTR: warm, well perfused, no C/C/E SKIN: warm and dry, no rash NEURO: Alert and oriented x 3, nonfocal Objective Labs 08/19/22 08:04 08/19/22 07:50 Labs: Laboratory Results - last 24 hr 08/19/22 08/19/22 08/19/22 07:50 08:04 08:32 WBC 5.7 RBC 3.65 L Hgb 11.7 L Hct 34.8 L MCV 95.5 MCH 32.0 MCHC 33.5 RDW 14.7 Plt Count 154 Neut % (Auto) 61.0 Lymph % (Auto) 15.6 L [place] % (Auto) 11.4 Eos % (Auto) 11.6 H Baso % (Auto) 0.4 Neut # (Auto) 3500 Lymph # (Auto) 900 L [place] # (Auto) 600 Eos # (Auto) 700 H Baso # (Auto) 0 Sodium 128 L Potassium 4.3 Chloride 89 L Carbon Dioxide 37 H BUN 16 Creatinine 0.57 L Estimated GFR > 60 BUN/Creatinine Ratio 28.1 H Glucose 85 Calcium 9.2 SARS-CoV-2 (PCR) Negative [facility] Medical History (Updated 08/19/22 @ 09:45 by Barbara Boyce MD) Alcohol abuse Continuous tobacco abuse Emphysema lung Essential hypertension Surgical History (Updated 08/13/22 @ 05:41 by KATHY Salguero) History of hernia repair Family History Father Cancer Mother Emphysema of lung Social History household members: none Smoking Status: Current every day smoker alcohol intake: current Discharge Plan Discharge Plan Patient Disposition: SNF Discharge orders & Medications Prescriptions: New aspirin 81 mg Tablet,Delayed Release (Dr/Ec) 81 mg PO DAILY Qty: 90 0RF levofloxacin 750 mg tablet 750 mg PO 0700 1 Days Qty: 1 0RF Rx Instructions: take on 2/2 nicotine 14 mg/24 hr Patch 24 Hour 14 mg topical DAILY Qty: 28 0RF sodium chloride 1,000 mg Tablet,Soluble 1,000 mg PO BID Qty: 60 0RF midodrine 10 mg tablet 10 mg PO 0600,1200,1800 30 Days Qty: 90 0RF Continued allopurinol 300 mg Tablet 300 mg PO DAILY fluticasone propion-salmeterol [Advair Diskus] 500-50 mcg/dose Blister With Device 1 inh INHALATION BID Discontinued indapamide 1.25 mg Tablet 1.25 mg PO QAM Follow up/Referrals: Mary Kay Solomon MD [Primary Care Provider] - 2 Weeks Discharge Health Status Multidrug resistant organism: No MDRO Diet/Activity/Treatments Diet: Regular Liquid consistency: Normal/Thin Food texture: Regular Diet comment: Fluid restriction of 1L per day until sodium normalizes Oxygen: 1L [place] [facility] Reason for rehabilitation: Recovery r/t decondition Rehab type: Physical therapy and Occupational therapy Visit Report/Discharge Packet Stand Alone Forms: Patient Portal/API Discharge Data Primary Care Provider: Mary Kay Solomon Quality VTE Deep Vein Thrombosis/Pulmonary Embolism Present on Admission: No
== END 2022-08-19 13:45 | DRG 640 ==
LOC: ED 20:51 → AC 22:29 → ICU 22:47
PROVIDERS: Family Medicine; Internal Medicine; Internal Medicine Critical Care Medicine; Student in an Organized Health Care Education/Training Program; Admitting Provider Nurse Practitioner Family; Emergency Provider Emergency Medicine; PCP Internal Medicine Geriatric Medicine; Referring Provider Emergency Medicine; Visit Provider Nurse Practitioner Family
DX: E87.1 Hypo-osmolality and hyponatremia (principal); J96.01 Acute respiratory failure with hypoxia; E44.1 Mild protein-calorie malnutrition; J44.1 Chronic obstructive pulmonary disease with (acute) exacerbation; I5A Non-ischemic myocardial injury (non-traumatic); I24.8 Other forms of acute ischemic heart disease; E83.42 Hypomagnesemia; I10 Essential (primary) hypertension; F10.20 Alcohol dependence, uncomplicated; M54.9 Dorsalgia, unspecified; G89.29 Other chronic pain; K59.00 Constipation, unspecified; I95.9 Hypotension, unspecified; D69.6 Thrombocytopenia, unspecified; M10.9 Gout, unspecified; F17.210 Nicotine dependence, cigarettes, uncomplicated; Y90.0 Blood alcohol level of less than 20 mg/100 ml; Z68.20 Body mass index [BMI] 20.0-20.9, adult; Z66 Do not resuscitate; Z20.822 Contact with and (suspected) exposure to COVID-19
CPT/HCPCS: 0241U; 36415; 36600; 70450; 71045; 80048; 80053; 80061; 80320; 81001; 82805; 82977; 83605; 83735; 83880; 83930; 83935; 84145; 84300; 84443; 84484; 84550; 85025; 85610; 87040; 87070; 87205; 87635; 87797; 93005; 93306; 94640; 94660; 94762; 96374; 97110; 97116; 97163; 97166; 97530; 97535; 99233; 99285; 99291; C9803; J1170; J1650; J2270; J2310; J3475